=== PATIENT | male | born 1955 | race Caucasian/White ===

== ENCOUNTER 2020-04-19 22:05 | Inpatient (IN) ==
[2020-04-19] MEDS ORDERED: PROPOFOL IV EMULSION 10 MG/ML 100 ML VIAL IV ONE (22:08)
[2020-04-19] MEDS ORDERED: SODIUM CHLORIDE 0.9% 1000ML 1,000 ML IV SCH (22:15)
[2020-04-19] MEDS ORDERED: AMIODARONE 150MG / 100ML D5W IV ONE (22:18)
[2020-04-19] MEDS ORDERED: fentaNYL citrate 100 MCG/2 ML VIAL ONE (22:23)
[2020-04-19] MEDS ORDERED: NITROGLYCERIN/D5W 100MCG/ML 20ML SYR ONE (22:23)
[2020-04-19] MEDS ORDERED: NiCARDipine HCL INJ 2.5 MG/ML 10 ML AMP ONE (22:23)
[2020-04-19] MEDS ORDERED: HEPARIN (PORCINE) 1000 UNIT/ML 10 ML (CATH LAB USE ONLY) ONE (22:23)
[2020-04-19] MEDS ORDERED: MIDAZOLAM HCL 1 MG/ML 2ML VIAL ONE (22:23)
[2020-04-19] MEDS ORDERED: AMIODARONE 450 MG in D5W 250ML IN *POLYOLEFIN BAG* 241 ML IV ONE (22:24)
[2020-04-19] MEDS ORDERED: 0.2 MICRON FILTER SET 1 EA IV ONE (22:24)
[2020-04-19 22:35] LABS: Basophils # (auto) 0.03 K/uL (0-0.2); Basophils % (auto) 0.2 %; Eosinophils # (auto) 0.13 K/uL (0-0.5); Eosinophils % (auto) 0.9 %; Hematocrit (blood only) 44.9 % (42-52); Immature Granulocytes # (auto) 0.12 K/uL (0.00-0.02); Immature Granulocytes % (auto) 0.8 %; Lymphocytes # (auto) 3.89 K/uL (1.2-3.4); Lymphocytes % (auto) 27.5 %; Mean Corpuscular Hemoglobin 31.4 pg (25-34); Mean Corpuscular Hgb Conc 33.4 g/dL (32-36); Mean Corpuscular Volume 94.1 fL (80-100); Mean Platelet Volume 10.1 fL (7.4-10.4); Monocytes % (auto) 4.9 %; Neutrophils % (auto) 65.7 %; Platelet Count 277 K/uL (130-400); RDW Coefficient of Variation 13.7 % (11.5-14.5); RDW Standard Deviation 47.2 fL (36.4-46.3); Red Blood Count 4.77 M/uL (4.7-6.1); White Blood Count 14.17 K/uL (4.8-10.8)
[2020-04-19 22:44] LABS: INR 3.2 (0.9-1.1); Partial Thromboplastin Ratio 1.1; Partial Thromboplastin Time 29.8 Seconds (21.0-31.0); Prothrombin Time 31.8 Seconds (9.0-12.0)
--- NOTE | 2020-04-19 22:45 | Cardiology Consultation ---
Date of Consultation April 19, 2020 Assessment & Plan (1) Cardiac arrest: Patient here after witnessed cardiac arrest and initial rhythm reportedly showing VF requiring defibrillation. ECG remarkable for chronic left bundle branch block with lateral ST changes from baseline. Currently hemodynamically stable off pressors. Plan to proceed with diagnostic coronary angiography to evaluate for ischemic etiology of arrest. We will place cooling catheter to begin targeted temperature management. Further recommendations pending findings. History of Present Illness History of Present Illness Mr. Siu is a 65-year-old man with a history of chronic atrial fibrillation on anticoagulation with Coumadin, hypertension, dyslipidemia, moderate mitral regurgitation here after witnessed cardiac arrest. Patient is followed by [facility] cardiology, Dr. Acuna. Per family patient was in his usual state of health preceding loss of consciousness while at rest. Bystander CPR began immediately. Upon EMS arrival reportedly in VF and had 2 shocks before ROSC. Post ROSC EKG in route showed atrial fibrillation, old left bundle branch block with more pronounced/deep ST depressions in V5, V6. Intubated in the field. On arrival to ED patient hypertensive, moving limbs spontaneously but not responding to commands. Pupils reactive. Started on amiodarone. Allergies Allergy/AdvReac Type Severity Reaction Status Date / Time No Known Allergies Allergy Verified 04/19/20 22:14 Home Medications Home Medications Medication Instructions Recorded Confirmed Type digoxin [Digitek] 250 mcg PO DAILY 04/19/20 04/19/20 History fenofibrate nanocrystallized 145 mg PO DAILY 04/19/20 04/19/20 History losartan 50 mg PO DAILY 04/19/20 04/19/20 History metoprolol succinate 25 mg PO DAILY 04/19/20 04/19/20 History multivitamin 1 tab PO DAILY 04/19/20 04/19/20 History sildenafil (pulm.hypertension) 100 mg PO DAILY PRN 04/19/20 04/19/20 History [Revatio] warfarin 2.5 mg PO DAILY 04/19/20 04/19/20 History Patient History Social History Preferred Language: Greenlandic Feels Safe at Home: Yes Smoking Status: Unknown if ever smoked Review of Systems Review of Systems: Unobtainable due to endotracheal tube Physical Exam Constitutional: + thin Eyes: + anicteric sclerae and PERRL Respiratory: Clear anteriorly Cardiovascular: Rate/Rhythm: + irregularly irregular Vessels: radial pulses present Gastrointestinal (Abdomen): Inspection/Auscultation: abdomen not distended Skin: no rashes, warm and dry Psychiatric: Intubated, sedated PG Care Time/CCT Total # of Minutes Spent Total Time Spent with Patient: Total time spent is greater than 50% in coordination of care (as documented) at patient's floor/unit and/or counseling patient: Coding Level of Care Code 20570 Inpt Consult Level 5 Diagnoses Cardiac arrest I46.9
[2020-04-19 22:50] LABS: Albumin Level 3.5 gm/dl (3.4-5.0); BUN Creatinine Ratio 11.5 (10-20); Calcium 8.4 mg/dl (8.5-10.1); Creatinine Clr Calc Pharmacy 55.3 ml/min; Est GFR (African American) 44.2; Est GFR (Non-African American) 38.1; Magnesium 2.2 mg/dl (1.8-2.4); Potassium 3.9 mmol/L (3.5-5.1)
[2020-04-19 23:01] LABS: Albumin Globulin Ratio 1.1 (0.9-2); Bilirubin,Total 0.4 mg/dl (0.2-1); Creatine Kinase MB 2.4 ng/ml (0.5-3.6); Globulin 3.1 gm/dl (2.5-4.0); Thyroid Stimulating Hormone 6.8 uIu/ml (0.300-4.500); Total Protein 6.6 gm/dl (6.4-8.2); Troponin I 0.036 ng/ml (0-0.045)
[2020-04-19 23:14] LABS: T4 Free Thyroxine 1.02 ng/dl (0.8-1.6)
--- NOTE | 2020-04-19 23:23 | Emergency Department Note ---
Impression & Plan Cardiac arrest, Ventricular fibrillation, A-fib, Left bundle branch block ED Provider Note NAME: ANNETTE GRANDA AGE: 65 SEX: M ARRIVES VIA: Ambulance INFORMANT: Patient, ED PROVIDER(S): Manny Feng MD CHIEF COMPLAINT: Vfib arrest PLAN: Disposition: Admit MEDICAL DECISION MAKING: The patient is a 65-year-old gentleman with a past medical history of atrial fibrillation on Coumadin who presents emergency department after having a cardiac arrest at home with initial rhythm showing V. fib. Per EMS report on med command call, which I received, the patient was noted to be gagging by his and his son immediately began CPR. 911 was called and upon EMS arrival he was found to be in V. fib and received 2 shocks with subsequent ROSC. He was also loaded with 300 mg of Amiodarone. He did receive 2 doses of push dose epinephrine for post cardiac arrest hypotension with subsequent stabilization. He was intubated and there was no report of any purposeful movements. He did however exhibit some arm movements shortly prior to arrival and was given Ativan for sedation. On arrival the patient is intubated, his pupils are reactive. Ultimately we were able to review the patient's history in the [employer] system which does show a chronic left bundle branch block, which appears somewhat similar to the patient's post ROSC EKG. Given the patient did present with V. fib I did discuss the case with Dr. Fernandes, interventional cardiology prior to patient arrival and we agreed to proceed with heart alert activation. Code artic also activated given no purposeful movements. OGT was placed. CXR was performed and ETT and Gtube tube appear in good position per my review. Propofol gtt initiated for sedation and patient intermittently would move upper extremities. Amiodarone gtt ordered. INR 3.0. Dr. Fernandes reviewed plan for catheterization with son at bedside. Patient was taken emergently to the Production Manager. Labs with WBC 14. H/H and platelets within normal limits. Creatinine 1.8 without priors for comparison. LFTs elevated with AST and ALT 569 and 698, respectively. Troponin 0.036 initially. Case was discussed with Dr. Rivera, [facility] hospitalist, who will evaluate the patient for admission following Production [facility]. Triage Nursing notes reviewed and agree them. Additional history obtained from son and [facility] records. Prior medical records reviewed Vital Signs: reviewed and remarkable for no significant abnormalities Differential diagnosis: Cardiac ischemia, aortic dissection, pulmonary embolism, electrolyte abnormality, acidosis, tension pneumothorax, hypothermia, hypovolemia, intracranial event, cardiac tamponade, as well as other pathologies. ER treatment provided: See below. Diagnostics interpreted by me: ECG: Atrial Fibrillation, 100 bpm, LAD, LBBB, No Sgarbossa criteria. QTC 503, QRS 152. Cardiac Monitoring: An order for continuous cardiac monitoring was placed and demonstrated Atrial fibrillation, 100 bpm, no ectopy. Laboratory studies: See below Imaging studies: CXR: No focal infiltrates. Pulmonary vascular prominence. ETT in appropriate position, OGT below diaphragm. Consultation(s): Dr. Fernandes, Interventional cardiology. Dr. Rivera, [facility] hospitalist. HPI: The patient is a 65-year-old gentleman with a past medical history of atrial fibrillation on Coumadin who presents emergency department after having a cardiac arrest at home with initial rhythm showing V. fib. Per EMS report on med command call, which I received, the patient was noted to be gagging by his and his son immediately began CPR. 911 was called and upon EMS arrival he was found to be in V. fib and received 2 shocks with subsequent ROSC. He was also loaded with 300 mg of Amiodarone. He did receive 2 doses of push dose epinephrine for post cardiac arrest hypotension with subsequent stabilization. He was intubated and there was no report of any purposeful movements. He did however exhibit some arm movements shortly prior to arrival and was given Ativan for sedation. ROS: See above HPI for pertinent positives & negatives. A total of 10 systems reviewed and were otherwise negative. PAST MEDICAL HISTORY:See Below PAST SURGICAL HISTORY:See Below FAMILY HISTORY:See Below SOCIAL HISTORY:See Below HOME MEDICATIONS:See Below ALLERGIES:See Below VITALS:See Below PHYSICAL EXAMINATION: GENERAL: Unresponsive, intubated. HENT: Normocephalic, atraumatic. Oropharynx with dry mucous membranes and otherwise unremarkable. EYES: Pupils equal and reactive. NECK: Atraumatic. RESPIRATORY: Coarse breath sounds. Manual ventilation. CARDIAC: Regular rate. Irregular rhythm. Pulses equal. ABDOMEN: Nondistended. RECTAL: Deferred. LOWER EXTREMITIES: No edema. NEURO: GCS-3T, Pupils equal and reactive. SKIN: Warm, clammy. ED COURSE: Critical Care: I have personally spent greater than 65 minutes of critical care time in the direct management of this patient. This includes bedside care, interpretation of diagnostic studies, and testing, discussion with consultants, patient, and family members, and other required patient management activities. This 65 minutes is in excess of all separately billable procedures. 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 Beliefs That Will Affect Care: None Current Living Situation: Spouse Feels Safe at Home: Declines to Answer Smoking Status: Never smoker Hx Substance Use: No Allergies Allergies Allergy/AdvReac Type Severity Reaction Status Date / Time No Known Allergies Allergy Verified 04/19/20 22:14 Home Meds Home Medications Medication Instructions Recorded Confirmed digoxin [Digitek] 250 mcg PO DAILY 04/19/20 04/19/20 fenofibrate nanocrystallized 145 mg PO DAILY 04/19/20 04/19/20 losartan 50 mg PO DAILY 04/19/20 04/19/20 metoprolol succinate 25 mg PO DAILY 04/19/20 04/19/20 multivitamin 1 tab PO DAILY 04/19/20 04/19/20 sildenafil (pulm.hypertension) 100 mg PO DAILY PRN 04/19/20 04/19/20 [Revatio] warfarin 2.5 mg PO DAILY 04/19/20 04/19/20 Results & Data (ED) Vital Signs Vital Signs - 24 hr 04/19/20 22:09 04/19/20 22:10 04/19/20 22:11 Temperature 36.8 C Temperature Source Rectal Pulse Rate 108 H 88 99 H Pulse Rate from SpO2 Sensor 82 Respiratory Rate 28 H 32 H Blood Pressure 138/80 138/80 Blood Pressure Mean 99 82 Pulse Oximetry 100 99 99 Oxygen Delivery Method Mechanical Vent Fraction of Inspired Oxygen 50 Sepsis Recent Fever Within 48 Hours No Sepsis New/Unexplained Change in Mental Status Yes Sepsis Action Taken by Nursing No Action Required End-Tidal CO2 32 26 04/19/20 22:18 04/19/20 22:22 04/19/20 22:25 Temperature Temperature Source Pulse Rate 106 H 105 H 107 H Pulse Rate from SpO2 Sensor 78 102 H 104 H Respiratory Rate Blood Pressure 164/58 H 144/102 H 140/103 H Blood Pressure Mean 116 117 119 Pulse Oximetry 97 99 98 Oxygen Delivery Method Fraction of Inspired Oxygen Sepsis Recent Fever Within 48 Hours Sepsis New/Unexplained Change in Mental Status Sepsis Action Taken by Nursing End-Tidal CO2 33 34 34 04/19/20 22:31 04/19/20 22:35 04/19/20 22:36 Temperature Temperature Source Pulse Rate 91 H Pulse Rate from SpO2 Sensor 104 H 108 H Respiratory Rate 29 H Blood Pressure 115/98 113/76 Blood Pressure Mean 107 87 Pulse Oximetry 100 99 97 Oxygen Delivery Method Mechanical Vent Fraction of Inspired Oxygen 50 Sepsis Recent Fever Within 48 Hours Sepsis New/Unexplained Change in Mental Status Sepsis Action Taken by Nursing End-Tidal CO2 33 34 32 Laboratory Data Attestation: I reviewed the patient's lab results. Result diagrams: 04/19/20 22:22 04/19/20 22:22 Lab Results 04/19/20 04/19/20 04/19/20 Range/Units 22:22 22:22 22:22 WBC 14.17 H (4.8-10.8) K/uL RBC 4.77 (4.7-6.1) M/uL Hgb 15.0 (14.0-18.0) g/dL Hct 44.9 (42-52) % MCV 94.1 (80-100) fL MCH 31.4 (25-34) pg MCHC 33.4 (32-36) g/dL RDW Std Deviation 47.2 H (36.4-46.3) fL RDW Coeff of Charles 13.7 (11.5-14.5) % Plt Count 277 (130-400) K/uL MPV 10.1 (7.4-10.4) fL Immature Gran % (Auto) 0.8 % Neut % (Auto) 65.7 % Lymph % (Auto) 27.5 % Jack % (Auto) 4.9 % Eos % (Auto) 0.9 % Baso % (Auto) 0.2 % Immature Gran # (Auto) 0.12 H (0.00-0.02) K/uL Neut # (Auto) 9.30 H (1.4-6.5) K/uL Lymph # (Auto) 3.89 H (1.2-3.4) K/uL Jack # (Auto) 0.70 H (0.11-0.59) K/uL Eos # (Auto) 0.13 (0-0.5) K/uL Baso # (Auto) 0.03 (0-0.2) K/uL PT 31.8 H (9.0-12.0) Seconds INR 3.2 H (0.9-1.1) APTT 29.8 (21.0-31.0) Seconds PTT Ratio 1.1 Sodium 143 (136-145) mmol/L Potassium 3.9 (3.5-5.1) mmol/L Chloride 111 H (98-107) mmol/L Carbon Dioxide 18 L (21-32) mmol/L Anion Gap 13.0 H (3-11) BUN 21 H (7-18) mg/dl Creatinine 1.82 H (0.6-1.4) mg/dl Est Cr Clr Drug Dosing 55.3 ml/min Est GFR ( Amer) 44.2 Est GFR (Non-Af Amer) 38.1 BUN/Creatinine Ratio 11.5 (10-20) Glucose 190 H (70-99) mg/dl Lactate (0.4-2.0) mmol/L Calcium 8.4 L (8.5-10.1) mg/dl Magnesium 2.2 (1.8-2.4) mg/dl Total Bilirubin 0.4 (0.2-1) mg/dl AST 569 H (15-37) U/L ALT 698 H (12-78) U/L Alkaline Phosphatase 43 L (45-117) U/L Total Creatine Kinase 343 H (39-308) U/L CK-MB (CK-2) 2.4 (0.5-3.6) ng/ml CK/CKMB % Calc 0.7 (0-3.0) Troponin I 0.036 (0-0.045) ng/ml Total Protein 6.6 (6.4-8.2) gm/dl Albumin 3.5 (3.4-5.0) gm/dl Globulin 3.1 (2.5-4.0) gm/dl Albumin/Globulin Ratio 1.1 (0.9-2) Lipase 267 (73-393) U/L Procalcitonin (0-0.5) ng/ml TSH 6.800 H (0.300-4.500) uIu/ml Free T4 1.02 (0.8-1.6) ng/dl 04/19/20 04/19/20 Range/Units 22:22 22:22 WBC (4.8-10.8) K/uL RBC (4.7-6.1) M/uL Hgb (14.0-18.0) g/dL Hct (42-52) % MCV (80-100) fL MCH (25-34) pg MCHC (32-36) g/dL RDW Std Deviation (36.4-46.3) fL RDW Coeff of Charles (11.5-14.5) % Plt Count (130-400) K/uL MPV (7.4-10.4) fL Immature Gran % (Auto) % Neut % (Auto) % Lymph % (Auto) % Jack % (Auto) % Eos % (Auto) % Baso % (Auto) % Immature Gran # (Auto) (0.00-0.02) K/uL Neut # (Auto) (1.4-6.5) K/uL Lymph # (Auto) (1.2-3.4) K/uL Jack # (Auto) (0.11-0.59) K/uL Eos # (Auto) (0-0.5) K/uL Baso # (Auto) (0-0.2) K/uL PT (9.0-12.0) Seconds INR (0.9-1.1) APTT (21.0-31.0) Seconds PTT Ratio Sodium (136-145) mmol/L Potassium (3.5-5.1) mmol/L Chloride (98-107) mmol/L Carbon Dioxide (21-32) mmol/L Anion Gap (3-11) BUN (7-18) mg/dl Creatinine (0.6-1.4) mg/dl Est Cr Clr Drug Dosing ml/min Est GFR ( Amer) Est GFR (Non-Af Amer) BUN/Creatinine Ratio (10-20) Glucose (70-99) mg/dl Lactate 5.2 H* (0.4-2.0) mmol/L Calcium (8.5-10.1) mg/dl Magnesium (1.8-2.4) mg/dl Total Bilirubin (0.2-1) mg/dl AST (15-37) U/L ALT (12-78) U/L Alkaline Phosphatase (45-117) U/L Total Creatine Kinase (39-308) U/L CK-MB (CK-2) (0.5-3.6) ng/ml CK/CKMB % Calc (0-3.0) Troponin I (0-0.045) ng/ml Total Protein (6.4-8.2) gm/dl Albumin (3.4-5.0) gm/dl Globulin (2.5-4.0) gm/dl Albumin/Globulin Ratio (0.9-2) Lipase (73-393) U/L Procalcitonin < 0.05 (0-0.5) ng/ml TSH (0.300-4.500) uIu/ml Free T4 (0.8-1.6) ng/dl Administered Medications Acetaminophen (Tylenol) 650 mg AR ONE PRN PRN Reason: Rebound Hyperthermia x 1 dose Stop: 05/20/20 00:50 Last Admin: 04/20/20 03:55 Dose: 650 mg Documented by: [id number] Amiodarone HCl 450 mg/ (Dextrose) 250 mls @ 33.333 mls/hr IV ONE ONE; Protocol Stop: 04/20/20 05:53 Last Admin: 04/20/20 00:14 Dose: 1 mg/min, 33.3 mls/hr Documented by: [id number] Cosigned by: [id number] Sodium Chloride (Nss 1000ml) 750 mls @ 100 mls/hr IV .Q7H30M [facility] Stop: 04/20/20 07:59 Last Admin: 04/20/20 01:27 Dose: 100 mls/hr Documented by: [id number] Amiodarone HCl 450 mg/ (Dextrose) 250 mls @ 16.667 mls/hr IV .Q15H [facility] Stop: 05/20/20 06:14 Last Admin: 04/20/20 04:53 Dose: 0.5 mg/min, 16.7 mls/hr Documented by: [id number] Cosigned by: [id number] Propofol (Diprivan) 1,000 mg in 100 mls @ 12.948 mls/hr IV .Q7H44M [facility]; Protocol Stop: 04/23/20 00:59 Last Admin: 04/20/20 04:54 Dose: 50 mcg/kg/min, 32.4 mls/hr Documented by: [id number] Cosigned by: [id number] Titration: 04/20/20 04:34 Dose: 50 mcg/kg/min, 32.4 mls/hr Documented by: [id number] Cosigned by: [id number] Admin: 04/20/20 01:28 Dose: 50 mcg/kg/min, 32.4 mls/hr Documented by: [id number] Cosigned by: [id number] Fentanyl Citrate (Fentanyl Drip) 1,250 mcg in 250 mls @ 15 mls/hr IV .[id number] [facility]; Protocol Stop: 05/04/20 01:14 Last Titration: 04/20/20 03:45 Dose: 75 mcg/hr, 15 mls/hr Documented by: [id number] Titration: 04/20/20 02:06 Dose: 50 mcg/hr, 10 mls/hr Documented by: [id number] Admin: 04/20/20 01:29 Dose: 25 mcg/hr, 5 mls/hr Documented by: [id number] Cosigned by: [id number] Cisatracurium Besylate 40 mg/ (Sodium Chloride) 100 mls @ 13.365 mls/hr IV .Q7H29M [facility]; Protocol Stop: 05/20/20 04:29 Last Admin: 04/20/20 04:52 Dose: 1 mcg/kg/min, 13.4 mls/hr Documented by: [id number] Cosigned by: [id number] Meperidine HCl (Demerol) 25 mg IV Q2H PRN PRN Reason: Shivering Stop: 05/04/20 00:50 Last Admin: 04/20/20 03:45 Dose: 25 mg Documented by: [id number] Admin: 04/20/20 02:06 Dose: 25 mg Documented by: [id number] Discontinued Medications Amiodarone HCl/Dextrose (Nexterone / D5w) Confirm Administered Dose 150 mg IV .STK-MED ONE Stop: 04/19/20 22:19 Last Admin: 04/20/20 00:24 Dose: Not Given Documented by: [id number] Fentanyl Citrate (Fentanyl Citrate) Confirm Administered Dose 100 mcg .ROUTE .STK-MED ONE Stop: 04/19/20 22:24 Last Admin: 04/20/20 00:24 Dose: Not Given Documented by: [id number] Heparin Sodium (Porcine) (Heparin Iv Bolus (Production Manager Use Only)) Confirm Administered Dose 10,000 units .ROUTE .[facility] ONE Stop: 04/19/20 22:24 Last Admin: 04/20/20 00:25 Dose: Not Given Documented by: [id number] Heparin Sodium/Sodium Chloride (Heparin/Nss 1000 Unit/500ml Flush Bag) Confirm Administered Dose 3,000 units IV .[facility] ONE Stop: 04/19/20 22:24 Last Admin: 04/20/20 00:25 Dose: Not Given Documented by: [id number] Sodium Chloride (Nss 1000ml) 1,000 mls @ 80 mls/hr IV .[id number] [facility] Stop: 05/19/20 22:14 Last Admin: 04/20/20 00:27 Dose: Not Given Documented by: [id number] Levetiracetam 2,000 mg/ Sodium (Chloride) 270 mls @ 999 mls/hr IV NOW STA Stop: 04/20/20 01:32 Last Infusion: 04/20/20 02:06 Dose: 0 mls/hr Documented by: [id number] Admin: 04/20/20 01:29 Dose: 999 mls/hr Documented by: [id number] Sodium Chloride (Nss 1000ml) 1,000 mls @ 999 mls/hr IV .Q1H1M [facility] Stop: 04/20/20 05:00 Last Admin: 04/20/20 04:18 Dose: 999 mls/hr Documented by: [id number] Ipratropium [place] (Atrovent Hfa) 4 puffs INH Q6R [facility] Stop: 05/20/20 00:59 Last Admin: 04/20/20 01:31 Dose: 4 puffs Documented by: [id number] Levalbuterol HCl (Xopenex Hfa) 4 puffs INH Q6R [facility] Stop: 05/20/20 00:59 Last Admin: 04/20/20 02:13 Dose: Not Given Documented by: [id number] Midazolam HCl (Versed) Confirm Administered Dose 2 mg .ROUTE .[facility] ONE Stop: 04/19/20 22:24 Last Admin: 04/20/20 00:25 Dose: Not Given Documented by: [id number] Midazolam HCl (Versed) Confirm Administered Dose 2 mg .ROUTE .STK-MED ONE Stop: 04/20/20 00:34 Last Admin: 04/20/20 01:28 Dose: 2 mg Documented by: [id number] Midazolam HCl (Versed) 2 mg IV NOW STA Stop: 04/20/20 01:02 Last Admin: 04/20/20 01:28 Dose: Not Given Documented by: [id number] Nicardipine HCl (Cardene) Confirm Administered Dose 25 mg .ROUTE .STK-MED ONE Stop: 04/19/20 22:24 Last Admin: 04/20/20 00:24 Dose: Not Given Documented by: [id number] Nitroglycerin/Dextrose (Nitroglycerin/D5w 100 Mcg/Ml 20ml Syringe) Confirm Administered Dose 2,000 mcg .ROUTE .STK-MED ONE Stop: 04/19/20 22:24 Last Admin: 04/20/20 00:25 Dose: Not Given Documented by: [id number] Propofol (Diprivan) Confirm Administered Dose 1,000 mg IV .STK-MED ONE Stop: 04/19/20 22:09 Last Admin: 04/20/20 00:24 Dose: Not Given Documented by: [id number] Rocuronium [place] (Zemuron) Confirm Administered Dose 10 mg .ROUTE .STK-MED ONE Stop: 04/20/20 00:42 Last Admin: 04/20/20 01:28 Dose: 50 mg Documented by: [id number] Cosigned by: [id number] Rocuronium [place] (Zemuron) 50 mg IV ONCE STA Stop: 04/20/20 01:02 Last Admin: 04/20/20 01:29 Dose: Not Given Documented by: [id number] Rocuronium [place] (Zemuron) Confirm Administered Dose 10 mg .ROUTE .STK-MED ONE Stop: 04/20/20 04:15 Last Admin: 04/20/20 04:16 Dose: 50 mg Documented by: [id number] Cosigned by: [id number] Rocuronium [place] (Zemuron) 50 mg IV NOW STA Stop: 04/20/20 04:16 Last Admin: 04/20/20 04:53 Dose: Not Given Documented by: [id number] Blood Pressure Blood Pressure Findings: Normal blood pressure Discharge Plan Visit Data *Final* Discharge Date/Time: 04/19/20 22:45 Stated Complaint: POST CARDIAC ARREST ED Provider: Manny Feng Discharge Problem: Cardiac arrest, Ventricular fibrillation, A-fib, Left bundle branch block Patient Disposition: Still a Patient Discharge Instructions Interventions: ED Discharge Assessment Last Done: 04/19/20 22:45
[2020-04-19] MEDS ORDERED: ICU PROTOCOL FOR HYPERGLYCEMIA PRN (23:35)
--- NOTE | 2020-04-19 23:35 | Cardiac Catheterization ---
[facility] Data: Package Drier Cardiac Status Clinical evaluation leading to the procedure CAD Presenation: Sx unlikely to be ischemic Anginal Classification: No Symptoms Heart Failure: No Cardiogenic Shock within 24 Hours: No Cardiac Arrest within 24 Hours: Yes Imaging Studies Past 6 Months: No Stress Studies Past 6 Months: No Diagnostic Physicians Name: Noel Fernandes MD Status: Urgent Closure Device Percutaneous Entry Location: Radial Closure Device: Radial Band Recommendations: Medical Therapy and/or Counseling Intraprocedure Events Significant Disection: No Perforation: No Cardiac Cath Procedure Full Procedure Date April 19, 2020 Pre-Procedure Diagnosis Pre-Procedure Diagnosis: Cardiothoracic Symptom (cardiac arrest) AUC Score AUC Score: 8 Post-Procedure Diagnosis Post-Procedure Diagnosis: Normal Coronary Arteries, Decreased LV Systolic Function and Normal Intracardiac Pressures Procedure(s) Performed Procedure(s) Performed: Coronary Angiography, Left Heart Cath, LV Angiography and Procedure (central venous cooling catheter placement) Lip And Gate Builder Noel Fernadnes MD Personal Injury Specialist(s) Danyelle Estimated Blood Loss Estimated Blood Loss: 10 Medication(s) Medication(s): Lidocaine 1% Summary of Findings Indication: Cardiac arrest Access: 6 Fr slender right radial artery Catheters: [place], pigtail Findings: LM -large caliber, angiographically normal LAD -mild proximal luminal irregularities, wraps around apex. Diagonals without significant disease Circumflex -dominant, large caliber vessel, minimal ostial disease otherwise angiographically normal RCA -small, nondominant without significant disease LVEDP -15 LVEF 35 to 40%, mild to moderate global LV dysfunction Successful placement of cooling catheter via right common femoral vein Arterial Closure: TR band Summary: 1. Essentially normal coronary arteries 2. Normal LV filling pressure 3. Mild to moderate global LV dysfunction, EF 35 to 40% Recommendations: To ICU for post cardiac arrest care including targeted temperature management Hemodynamics Rest Ao:: 104/67/83 Final Ao: 132/76/94 LV: 104/15 Recommendations Recommendations: Medical Therapy and/or Counseling Specimens Specimens: None Radiation Exposure (mGy) 887 Contrast (mls) 50 Fluids (cc crystalloids) Fluids (cc crystalloids): 50 Drains Drains: none Anesthesia propofol Procedural Complication(s) None Disposition ICU I attest to the content of the Intraoperative Record and any orders documented therein. Any exceptions are noted below. [facility] Card Cath Procedure Codes Cardiac Catheterization Procedure 1: Cardiovascular Cath Procedures: 02987 Coronaries and LHC (+/-LV) Therapeutic Services & Ancillary Proc Procedure 1: Cardiovascular Tx and Anc Procedures: 69606 Insertion Central Venous Catheter PG Care Time/CCT Total # of Minutes Spent Total Time Spent with Patient: Total time spent is greater than 50% in coordination of care (as documented) at patient's floor/unit and/or counseling patient:
--- NOTE | 2020-04-19 23:37 | History & Physical Report ---
Date of Service April 19, 2020 Assessment & Plan (1) Cardiac arrest: Out of hospital event Initial V. fib rhythm as per report Return of spontaneous circulation post defibrillation. Christina. ana on Coumadin, slight elevated INR supratherapeutic chronic LBBB Hypertension, currently stable ARF Abnormal LFTs possibly from shock liver, probable hypotension during cardiac arrest Hyperglycemia rule out DM ICU Management of cardiac issues as per Cardiology. Truss Puller Helper consult for vent management and post arrest therapeutic hypothermia. Baseline UA, monitor creatinine response to IVF, appropriate to hold losartan for now given kidney dysfunction Follow LFTs; liver ultrasound if with worsening Check hemoglobin A1c DVT prophylaxis. IV heparin if INR less than 2 while Coumadin on hold due to n.p.o. status Full code Text document was generated using [employer] voice recognition software. It may contain grammatical or spelling errors. Kindly contact undersigned for clarification of any documentation item in question. History of Present Illness Chief Complaint: Cardiac arrest as per records Primary Care Provider: Patricia Ragsdale MD History obtained from ER provider and records. Unable to obtain history from patient secondary to sedated/intubated state. Medical history significant for Christina. ana on Coumadin, chronic LBBB, valvular heart disease (moderate MR/TR on TTE 2017) hypertension, history of melanoma as per records. As per records, patient noted to be gagging by a few hours ago. Patient subsequently passed out. CPR initiated by son. Upon EMS arrival, V. fib noted on the monitor necessitating shock delivery. Epinephrine, IV amiodarone administered on the field. ROSC after defibrillation. Some limb movement without appreciated as per records. Patient intubated at the field. Therapeutic hypothermia protocol initiated en route to ER. Heart alert called upon arrival at the ER after discussion with senior web applications developer. Clean coronaries on diagnostic cardiac catheterization as per senior web applications developer. Medical History as above Surgical History : Dental surgery, tonsillectomy Family History : Diabetes, Parkinson's disease Personal/Social history : Non-smoker, daily alcohol intake as per records, lives with Allergies Allergy/AdvReac Type Severity Reaction Status Date / Time No Known Allergies Allergy Verified 04/19/20 22:14 Home Medications Home Medications Medication Instructions Recorded Confirmed Type digoxin [Digitek] 250 mcg PO DAILY 04/19/20 04/19/20 History fenofibrate nanocrystallized 145 mg PO DAILY 04/19/20 04/19/20 History losartan 50 mg PO DAILY 04/19/20 04/19/20 History metoprolol succinate 25 mg PO DAILY 04/19/20 04/19/20 History multivitamin 1 tab PO DAILY 04/19/20 04/19/20 History sildenafil (pulm.hypertension) 100 mg PO DAILY PRN 04/19/20 04/19/20 History [Revatio] warfarin 2.5 mg PO DAILY 04/19/20 04/19/20 History Past Med/Surg History Medical History A-fib (Acute) Left bundle branch block (Acute) On warfarin therapy Social History Preferred Language: Romansh Communication Ability: Unable Seam Closer Required: No Beliefs That Will Affect Care: None Current Living Situation: Spouse Feels Safe at Home: Declines to Answer Smoking Status: Never smoker Hx Substance Use: No Review of Systems Review of Systems: Could not be reliably obtained Physical Exam Physical Exam: GENERAL: Sedated, intubated SKIN: Normal color, warm HEENT: Vandiver palpebral conjunctivae, no ptosis, dry buccal mucosa, ET in place NECK : Supple, no tenderness CHEST : Decreased breath sounds, no tenderness HEART : irregular, no obvious murmurs ABDOMEN: Some distention, nontender EXTREMITIES : Minimal LE swelling, no LE tenderness, no other conspicuous deformities noted NEUROLOGIC : Sedated, no facial asymmetry, gait and stance not assessed Results & Data Results & Data ([facility]) Vital Signs (Past 12 Hours) Vital Signs Temp Pulse Resp BP Pulse Ox 04/19/20 22:36 113/76 97 04/19/20 22:31 115/98 100 04/19/20 22:25 107 H 140/103 H 98 04/19/20 22:22 105 H 144/102 H 99 04/19/20 22:18 106 H 164/58 H 97 04/19/20 22:11 99 H 138/80 99 04/19/20 22:10 88 32 H 99 04/19/20 22:09 36.8 C 108 H 28 H 138/80 100 Laboratory Results Laboratory Results WBC 14.17 K/uL (4.8-10.8) H 04/19/20 22:22 RBC 4.77 M/uL (4.7-6.1) 04/19/20 22:22 Hgb 15.0 g/dL (14.0-18.0) 04/19/20 22:22 Hct 44.9 % (42-52) 04/19/20 22:22 MCV 94.1 fL (80-100) 04/19/20 22:22 MCH 31.4 pg (25-34) 04/19/20 22: MCHC 33.4 g/dL (32-36) 04/19/20 22:22 RDW Std Deviation 47.2 fL (36.4-46.3) H 04/19/20:22 RDW Coeff of Charles 13.7 % (11.5-14.5) 04/19/20: Plt Count 277 K/uL (130-400) 04/19/20 22: MPV 10.1 fL (7.4-10.4) 04/19/20 22:22 Immature Gran % (Auto) 0.8 % 04/19/20 22:22 Neut % (Auto) 65.7 % 04/19/20 22:22 Lymph % (Auto) 27.5 % 04/19/20 22:22 [place] % (Auto) 4.9 % 04/19/20 22:22 Eos % (Auto) 0.9 % 04/19/20 22:22 Baso % (Auto) 0.2 % 04/19/20 22:22 Immature Gran # (Auto) 0.12 K/uL (0.00-0.02) H 04/19/20 22:22 Neut # (Auto) 9.30 K/uL (1.4-6.5) H 04/19/20 22:22 Lymph # (Auto) 3.89 K/uL (1.2-3.4) H 04/19/20 22:22 [place] # (Auto) 0.70 K/uL (0.11-0.59) H 04/19/20 22:22 Eos # (Auto) 0.13 K/uL (0-0.5) 04/19/20 22:22 Baso # (Auto) 0.03 K/uL (0-0.2) 04/19/20 22:22 PT 31.8 Seconds (9.0-12.0) H 04/19/20 22:22 INR 3.2 (0.9-1.1) H 04/19/20 22:22 APTT 29.8 Seconds (21.0-31.0) 04/19/20 22:22 PTT Ratio 1.1 04/19/20 22:22 Sodium 143 mmol/L (136-145) 04/19/20 22:22 Potassium 3.9 mmol/L (3.5-5.1) 04/19/20 22:22 Chloride 111 mmol/L (98-107) H 04/19/20 22:22 Carbon Dioxide 18 mmol/L (21-32) L 04/19/20 22:22 Anion Gap 13.0 (3-11) H 04/19/20 22:22 BUN 21 mg/dl (7-18) H 04/19/20 22:22 Creatinine 1.82 mg/dl (0.6-1.4) H 04/19/20 22:22 Est Cr Clr Drug Dosing 55.3 ml/min 04/19/20 22:22 Est GFR ( Amer) 44.2 04/19/20 22:22 Est GFR (Non-Af Amer) 38.1 04/19/20 22:22 BUN/Creatinine Ratio 11.5 (10-20) 04/19/20 22:22 Glucose 190 mg/dl (70-99) H 04/19/20 22:22 Calcium 8.4 mg/dl (8.5-10.1) L 04/19/20 22:22 Magnesium 2.2 mg/dl (1.8-2.4) 04/19/20 22:22 Total Bilirubin 0.4 mg/dl (0.2-1) 04/19/20 22:22 AST 569 U/L (15-37) H 04/19/20 22:22 ALT 698 U/L (12-78) H 04/19/20 22:22 Alkaline Phosphatase 43 U/L (45-117) L 04/19/20 22:22 Total Creatine Kinase 343 U/L (39-308) H 04/19/20 22:22 CK-MB (CK-2) 2.4 ng/ml (0.5-3.6) 04/19/20 22:22 CK/CKMB % Calc 0.7 (0-3.0) 04/19/20 22:22 Troponin I 0.036 ng/ml (0-0.045) 04/19/20 22:22 Total Protein 6.6 gm/dl (6.4-8.2) 04/19/20 22:22 Albumin 3.5 gm/dl (3.4-5.0) 04/19/20 22:22 Globulin 3.1 gm/dl (2.5-4.0) 04/19/20 22:22 Albumin/Globulin Ratio 1.1 (0.9-2) 04/19/20 22:22 Lipase 267 U/L (73-393) 04/19/20 22:22 TSH 6.800 uIu/ml (0.300-4.500) H 04/19/20 22:22 Free T4 1.02 ng/dl (0.8-1.6) 04/19/20 22:22 Diagnostic Findings Chest x-ray as per my interpretation cardiomegaly, minimal congestion CT head initial read : no acute intracranial findings EKG as per my interpretation : Rate 85, A. fib, LAD, LAFB, LBBB
--- NOTE | 2020-04-19 23:44 | Critical Care Consultation ---
Date of Consultation April 19, 2020 Assessment & Plan (1) Cardiac arrest: Reason Critically Ill: 65-year-old male with history of A. fib, presents to the ICU following witnessed V. fib cardiac arrest with ROSC achieved approximately 20 minutes. Patient unresponsive and presumed anoxic injury now undergoing therapeutic hypothermia. Neuro - Anoxic injurysee neurological exam -CT head Noncon pending, will undergo 24-hour therapeutic hypothermia per protocol Cardiac - V. fib cardiac arrestunsure of etiology at this time as patient's cardiac cath was unremarkable with normal coronary arteries, electrolytes unremarkable -Patient did have reduced LV function, will follow up echo in a.m. -Patient undergo therapeutic hypothermia protocol -Currently hemodynamically stable without need for vasopressors at this time -Continuous monitor on telemetry, will insert arterial line for continuous hemodynamic monitoring and frequent lab draws -We will follow-up cardiology recommendations A. fib/chronic LBBBon Coumadin and INR therapeutic, will likely need conversion to heparin as he is currently mechanically ventilated -Currently rate controlled, continue to monitor on telemetry Respiratory - Mechanically ventilatedETT placed via EMS, placement confirmed with CXR -14/500/5/50 percent, will adjust off ABGs -CXR appears unremarkable, will follow up read -Continuous monitoring on pulse ox, continuous ET CO2 -Will remain intubated during therapeutic hypothermia GI - Elevated LFTsno history of liver disease, likely shock liver following cardiac arrest -We will continue to trend for now RENAL/LYTES - AKIcreatinine 1.8, no baseline to compare -Expect this is ATN following cardiac arrest, will monitor closely for development of acute renal failure - Foleystrict I's and O's ENDO - No history diabetes or thyroid disease, TSH elevated but T4 within normal limits ICU hyperglycemic protocol HEME - H&H within normal limits, monitor ID - No indication for infectious process at this time LINES/IV ACCESS - Central venous cooling catheter DVT PROPHYLAXIS - SCDs I have personally spent 55 minutes of critical care time in the direct management of this patient. This is a life/limb threatening event. This includes time spent evaluating patient, direct bedside care, chart review, placing orders, interpretation of diagnostic studies, discussion with consultants, patient, and family members, as well as other required patient management activities. This time is exclusive of all separately billable procedures, and teaching time and separate from and in addition to any other critical care service time. Thank you for allowing us to participate in the care of this patient. Please refer to my attending physician's documentation for any further recommendations. (2) Ventricular fibrillation: (3) A-fib: (4) Left bundle branch block: (5) Anoxic brain damage: History of Present Illness Attending Physician: Noel Fernandes MD History of Present Illness Mr. Tovar is a 65-year-old male with PMH of A. fib (on Coumadin), LBBB who presented to the emergency department after cardiac arrest at home which showed V. fib. Patient's noticed that he was gasping while asleep in bed and she called out to the son who responded immediately. He did not feel a pulse and called 911 and started CPR. Paramedics arrived approximately 7 minutes later and so the patient was in V. fib arrest. Patient received shock x2 and CPR until ROSC was achieved approximately 20 minutes from initial 911 call. In route EKG was questionable for STEMI but paramedics were unable to confirm due to LBBB, heart alert was initiated. There was also questionable seizure activity and what sounds like decorticate posturing and improved, and patient was given 1 mg Ativan and symptoms subsided. He arrived to the ED intubated but was not following commands and was nonlocalizing with noxious stimuli. He also appeared to have doll's eyes but was PERRLA and cough gag corneal reflexes were intact. Patient then went to Health Promotion Educator but was found to have normal coronary arteries and normal intracardiac pressures but decreased LV systolic function. A central venous cooling catheter was placed in the [facility] Promotion Educator in anticipation for hypothermic therapy. Patient is currently in CT for CT head Noncon. If negative, will undergo 24 hours of hypothermic therapy following cardiac arrest per protocol. Patient to remain in ICU for further management at this time. Allergies Allergy/AdvReac Type Severity Reaction Status Date / Time No Known Allergies Allergy Verified 04/19/20 22:14 Home Medications Home Medications Medication Instructions Recorded Confirmed Type digoxin [Digitek] 250 mcg PO DAILY 04/19/20 04/19/20 History fenofibrate nanocrystallized 145 mg PO DAILY 04/19/20 04/19/20 History losartan 50 mg PO DAILY 04/19/20 04/19/20 History metoprolol succinate 25 mg PO DAILY 04/19/20 04/19/20 History multivitamin 1 tab PO DAILY 04/19/20 04/19/20 History sildenafil (pulm.hypertension) 100 mg PO DAILY PRN 04/19/20 04/19/20 History [Revatio] warfarin 2.5 mg PO DAILY 04/19/20 04/19/20 History Patient History Social History Preferred Language: Greenlandic Feels Safe at Home: Yes Smoking Status: Unknown if ever smoked Review of Systems Review of Systems: All systems reviewed & are unremarkable except as noted in HPI & below Physical Exam Eyes: PERRL, conjunctivae normal, anicteric sclerae Positive doll's eyes ENMT: external ear and nose normal, oropharynx normal Neck: trachea midline, no thyromegaly Respiratory: normal respiratory effort, lungs clear to auscultation symmetric chest movement Cardiovascular: RRR, no murmur, no edema Heart Sounds: normal S1 and normal S2 Vessels: no JVD Extremities: normal capillary refill; no edema Gastrointestinal (Abdomen): normal bowel sounds, soft, nontender, no hepatosplenomegaly Skin: no rashes, warm and dry Neurologic: PERRLA, cough gag corneals intact, nonlocalizing to pain, positive doll's eyes Psychiatric: MODESTA Results & Data Results & Data ([facility]) Vital Signs (Past 12 Hours) Vital Signs Temp Pulse Resp BP Pulse Ox 04/19/20 22:36 113/76 97 04/19/20 22:31 115/98 100 04/19/20 22:25 107 H 140/103 H 98 04/19/20 22:22 105 H 144/102 H 99 04/19/20 22:18 106 H 164/58 H 97 04/19/20 22:11 99 H 138/80 99 04/19/20 22:10 88 32 H 99 04/19/20 22:09 36.8 C 108 H 28 H 138/80 100 Coding Level of Care Code Critical Care 1st 30-74 mins Diagnoses Cardiac arrest I46.9 Ventricular fibrillation I49.01 A-fib I48.91 Left bundle branch block I44.7 Anoxic brain damage G93.1
[2020-04-20] MEDS ORDERED: ICU PROTOCOL FOR HYPERGLYCEMIA PRN (00:23)
[2020-04-20] MEDS ORDERED: fentaNYL citrate 100 MCG/2 ML VIAL IV PRN (00:23)
[2020-04-20] MEDS ORDERED: PROMETHAZINE HCL 12.5 MG in SODIUM CHLORIDE 0.9% 50 ML IV PRN (00:23)
[2020-04-20] MEDS ORDERED: SODIUM CHLORIDE 0.9% 1000ML 750 ML IV SCH (00:30)
[2020-04-20] MEDS ORDERED: MIDAZOLAM HCL 1 MG/ML 2ML VIAL ONE (00:33)
[2020-04-20] MEDS ORDERED: ROCURONIUM BROMIDE 10 MG/ML 5 ML VIAL ONE ×2 (00:41→04:14)
[2020-04-20] MEDS ORDERED: ACETAMINOPHEN 650 MG SUPP PR PRN (00:51)
[2020-04-20] MEDS ORDERED: ARTIFICIAL TEARS OP OINT 3.5 GM TUBE OP PRN (00:51)
[2020-04-20] MEDS ORDERED: BusPIRone 15 MG TAB NG PRN (00:51)
[2020-04-20] MEDS ORDERED: TRAMADOL HCL 50 MG TABLET NG PRN (00:51)
[2020-04-20] MEDS ORDERED: PROPOFOL BOLUS FROM BAG IV PRN (00:56)
[2020-04-20] MEDS ORDERED: STAT IV Infusion **Titration per Protocol STA ×4 (00:56→17:17)
[2020-04-20] MEDS ORDERED: LEVALBUTEROL TARTRATE 15 GM HFA.AER.AD INH SCH (01:00)
[2020-04-20] MEDS ORDERED: IPRATROPIUM BROMIDE HFA INHALER INH SCH (01:00)
[2020-04-20] MEDS ORDERED: ROCURONIUM BROMIDE 10 MG/ML 5 ML VIAL IV STA ×2 (01:01→04:15)
[2020-04-20] MEDS ORDERED: MIDAZOLAM HCL 1 MG/ML 2ML VIAL IV STA (01:01)
--- NOTE | 2020-04-20 01:05 | Procedure Note ---
Procedure Note Date of Service April 20, 2020 Note ARTERIAL LINE PROCEDURE NOTE: Procedure: Arterial Line Placement Attending: Dr. Francisco Desir Provider: LUI Cook Indication: Continuous hemodynamic monitoring, frequent lab draws Anesthesia: None Line placed emergently following cardiac arrest, and initiation of therapeutic hypothermia A time-out was completed verifying correct patient, procedure, site, positioning, and implant(s) or special equipment if applicable. Allens test was performed to ensure adequate perfusion. Patients left wrist was prepped and draped in the usual sterile fashion. Ultrasound guidance was used to aid needle placement. A 20g Arrow arterial line was introduced into the left radial artery. Catheter was threaded, and the needle was removed with appropriate blood return. Good waveform was observed. The patient tolerated the procedure well. Conf irmation of placement with ultrasound. Blood Loss: Minimal Complications: None Procedural Ultrasound Guidance: Procedure Date: 04/20/2020 Indication: Arterial line insertion Attending: Dr. Francisco Desir Provider: LUI Cook Artery Identified: YES Line confirmed in Artery with ultrasound: Yes Complications: NONE Patient tolerated procedure: WELL Coding CPT Codes Tubes, Drains, and Vasc Access - Tubes, Drains, and Vasc Access: [id number] Place Catheter In Artery ([id number]) Tubes, Drains, and Vasc Access - Tubes, Drains, and Vasc Access: [id number] Ultrasound Guidance For Vascular ([id number]) [facility] [place] Procedure Codes (Charges) Tubes, Drains, and Vasc Access Procedure 1: Tubes, Drains, and Vasc Access: [id number] Place Catheter In Artery Procedure 2: Tubes, Drains, and Vasc Access: [id number] Ultrasound Guidance For Vascular
[2020-04-20 01:08] LABS: iSTAT Arterial Blood Gas HCO3 22 meg/L (19-24); iSTAT Arterial Blood Gas pCO2 57 mmHg (35-46); iSTAT Arterial Blood Gas pO2 101 mmHg (80-95); iSTAT Carbon Dioxide 24 mmol/L (24-31); iSTAT FiO2 50 %; iSTAT Site Art Line
[2020-04-20] MEDS ORDERED: FENTANYL BOLUS FROM BAG IV PRN (01:10)
[2020-04-20] MEDS ORDERED: LEVALBUTEROL TARTRATE 15 GM HFA.AER.AD INH PRN (01:15)
[2020-04-20] MEDS: propofoL 1,000 MG/100 ML VIAL IV SCH ×6 (01:28→23:18)
[2020-04-20] MEDS: fentaNYL DRIP 1,250 MCG/250 ML BAG IV SCH ×2 (01:29→20:34)
[2020-04-20 01:43] LABS: Appearance Urine Cloudy (Clear); Bilirubin Urine Negative (Negative); Blood Urine 3+ (Negative); Color Urine Dark Yellow; Epithelial Cell Urine Auto >30 /lpf (0-5); Glucose Urine UA Trace (Negative); Ketones Urine Negative (Negative); Leukocyte Esterase Urine Negative (Negative); Nitrite Urine Negative (Negative); Protein Urine 2+ (Negative); RBC Urine Automated >30 /hpf (0-4); Specific Gravity Urine > 1.045 (1.000-1.030); Urobilinogen Urine Negative (Negative); WBC Urine Automated >30 /hpf (0-5)
[2020-04-20] MEDS ORDERED: IPRATROPIUM BROMIDE HFA INHALER INH PRN (01:57)
[2020-04-20 02:01] LABS: Bacteria Urine Automated 1+ (Negative)
[2020-04-20 02:02] LABS: Granular Casts Urine >30 /lpf (0)
[2020-04-20] MEDS: MEPERIDINE HCL 25 MG/ML CARP/VIAL IV PRN ×4 (02:06→20:35)
[2020-04-20] MEDS ORDERED: SODIUM CHLORIDE 0.9% 1000ML 1,000 ML IV SCH (04:00)
[2020-04-20] MEDS ORDERED: CISATRACURIUM BESYLATE 40 MG in 0.9 % SODIUM CHLORIDE 80 ML IV SCH ×2 (04:15→04:30)
[2020-04-20 04:20] LABS: iSTAT Arterial Blood Gas HCO3 21 meg/L (19-24); iSTAT Arterial Blood Gas pCO2 47 mmHg (35-46); iSTAT Arterial Blood Gas pH 7.25 (7.35-7.45); iSTAT Arterial Blood Gas pO2 86 mmHg (80-95); iSTAT Carbon Dioxide 22 mmol/L (24-31); iSTAT FiO2 40 %; iSTAT Site Art Line
[2020-04-20] MEDS ORDERED: AMIODARONE RATE CHANGE ONE (04:24)
[2020-04-20 05:13] LABS: INR 4.2 (0.9-1.1); Prothrombin Time 40.8 Seconds (9.0-12.0)
[2020-04-20] MEDS ORDERED: cefTRIAXone SODIUM 2,000 MG in DEXTROSE 5% 50 ML IV SCH (06:00)
[2020-04-20] MEDS ORDERED: AMIODARONE 450 MG in D5W 250ML IN *POLYOLEFIN BAG* 241 ML IV SCH (06:15)
[2020-04-20] MEDS ORDERED: 0.2 MICRON FILTER SET 1 EA IV SCH (06:15)
[2020-04-20 06:20] LABS: Basophils # (auto) 0.01 K/uL (0-0.2); Basophils % (auto) 0.1 %; Hematocrit (blood only) 41.2 % (42-52); Immature Granulocytes # (auto) 0.03 K/uL (0.00-0.02); Immature Granulocytes % (auto) 0.2 %; Lymphocytes # (auto) 0.82 K/uL (1.2-3.4); Lymphocytes % (auto) 6.8 %; Mean Corpuscular Hemoglobin 31.3 pg (25-34); Mean Corpuscular Volume 92.2 fL (80-100); Monocytes # (auto) 0.78 K/uL (0.11-0.59); Monocytes % (auto) 6.5 %; Neutrophils # (auto) 10.41 K/uL (1.4-6.5); Neutrophils % (auto) 86.4 %; Platelet Count 241 K/uL (130-400); RDW Standard Deviation 47.1 fL (36.4-46.3); Red Blood Count 4.47 M/uL (4.7-6.1); White Blood Count 12.05 K/uL (4.8-10.8)
[2020-04-20 06:36] LABS: INR 4.7 (0.9-1.1); Partial Thromboplastin Ratio 1.4; Partial Thromboplastin Time 40.3 Seconds (21.0-31.0); Prothrombin Time 45.8 Seconds (9.0-12.0)
[2020-04-20 07:01] LABS: Albumin Level 3.3 gm/dl (3.4-5.0); BUN Creatinine Ratio 22.8 (10-20); Bilirubin Direct 0.2 mg/dl (0-0.2); Bilirubin,Total 0.5 mg/dl (0.2-1); Calcium 7.7 mg/dl (8.5-10.1); Creatinine Clr Calc Pharmacy 82.9 ml/min; Est GFR (African American) 79.5; Est GFR (Non-African American) 68.6; Magnesium 1.9 mg/dl (1.8-2.4); Phosphorus 2.7 mg/dl (2.5-4.9); Potassium 4.8 mmol/L (3.5-5.1); Total Protein 5.9 gm/dl (6.4-8.2)
--- NOTE | 2020-04-20 07:28 | CT Scan Report ---
HEAD CT NONCONTRAST CT DOSE: 691.05 mGy.cm HISTORY: Altered mental status. TECHNIQUE: Multiaxial CT images of the head were performed without the use of intravenous contrast. A utomated exposure control was utilized for this study. A dose lowering technique was utilized adheri ng to the principles of ALARA. Comparison: None. Findings: Mild motion artifact. The paranasal sinuses and mastoid air cells are clear. The calvarium and skull base are intact. The ventricles and sulci are within normal limits. There is no mass, hemat jarrett, midline shift, or acute infarct. Impression: Mild motion artifact. No definite acute intracranial abnormality. ACT 112: Negative or not required by law. Electronically signed by: Tee Dobbs M.D. 04/20/2020 7:27 AM
--- NOTE | 2020-04-20 07:40 | XRay Report ---
XR chest 1V portable HISTORY: Atypical Chest pain COMPARISON: None. FINDINGS: Endotracheal tube terminates 4.4 centers from the jasbir. Nasogastric tube terminates below the diaphragm. The tip is not included on this study. No pneumothorax. No pleural effusions. The hea rt is enlarged. There are few left basilar linear densities suggesting subsegmental atelectasis. Ther e is mild central pulmonary vascular congestion without overt edema. IMPRESSION: 1. Satisfactory support line placement. 2. Cardiomegaly. 3. Mild central pulmonary vascular congestion without overt edema. ACT 112: Negative or not required by law. Electronically signed by: Tee Dobbs M.D. 04/20/2020 7:39 AM
[2020-04-20] MEDS ORDERED: INFLUENZA VACCINE HIGH DOSE 65+ 0.5 ML SYR IM ONE (08:00)
[2020-04-20] MEDS ORDERED: PNEUMOCOCCAL ADMINISTRATION CHARGE ONE (08:00)
[2020-04-20] MEDS ORDERED: INFLUENZA ADMINISTRATION CHARGE ONE (08:00)
[2020-04-20] MEDS ORDERED: PNEUMOCOCCAL POLYSACCHARIDES 25 MCG/0.5 ML VIAL/SYR IM ONE (08:00)
[2020-04-20 08:11] LABS: iSTAT Art Bld Gas pCO2 Correct 25 mmHg (35-46); iSTAT Art Bld Gas pH Corrected 7.456 (7.35-7.45); iSTAT Arterial Blood Gas HCO3 18 meg/L (19-24); iSTAT Arterial Blood Gas pCO2 31 mmHg (35-46); iSTAT Arterial Blood Gas pH 7.38 (7.35-7.45); iSTAT Arterial Blood Gas pO2 167 mmHg (80-95); iSTAT Arterial Blood Gas pO2 C 142; iSTAT Carbon Dioxide 19 mmol/L (24-31); iSTAT FiO2 40 %; iSTAT Hematocrit 40 % (42-52); iSTAT Hemoglobin 13.6 g/dl (14.0-18.0); iSTAT Potassium 4.2 mmol/L (3.3-5.0); iSTAT Site Art Line; iSTAT Sodium 137 mmol/L (135-144)
[2020-04-20] MEDS: FAMOTIDINE 20 MG in SYRINGE 3 ML IV SCH ×2 (09:12→21:15)
[2020-04-20] MEDS ORDERED: PHARMACY GLYCEMIC MGMT CONSULT PRN (10:15)
[2020-04-20] MEDS: AMPICILLIN/SULBACTAM SOD 3,000 MG in 0.9 % SODIUM CHLORIDE 100 ML IV SCH ×3 (10:48→23:17)
[2020-04-20] MEDS: INSULIN REGULAR 250 UNITS in SODIUM CHLORIDE 0.9% 247.5 ML IV SCH (10:48)
[2020-04-20] MEDS: NORMOSOL-R 1,000 ML IV SCH ×2 (10:49→18:21)
--- NOTE | 2020-04-20 11:11 | Pharmacy Report ---
Glycemic Control Consultation - Date of Service April 20, 2020 - Scope Scope: Glycemic Pharmacist consulted for glycemic control and to write orders per [facility] inpatient glycemic control protocol. - Objective Weight: 90.1 kg Accuchecks BSG (last 24hrs): 04/19/20 04/20/20 04/20/20 22:22 03:19 05:58 Glucose 190 H 156 H POC Glucose 146 H POC Glucose (other) 04/20/20 04/20/20 10:02 10:07 Glucose POC Glucose 139 H POC Glucose (other) 151 H Laboratory Data (last 24hrs): 04/19/20 04/20/20 22:22 05:58 Potassium 3.9 4.8 D Carbon Dioxide 18 L 20 L Anion Gap 13.0 H 6.0 Creatinine 1.82 H 1.12 D Est Cr Clr Drug Dosing 55.3 82.9 - Recent Pertinent Medications Outpatient Anti-diabetic Regimen: * None * A1c ordered for tomorrow Risk Factors for Insulin Resistance: * Recent Surgery: POD 0 s/p cardiac cath * Diet: NPO * Mechanical Ventilation: yes - Assessment & Plan Assessment & Plan: ASSESSMENT: * 65 yo M with cardiac arrest s/p ROSC and initiation of 24 hour therapeutic hypothermia protocol early this AM. * Discussed at ICU rounds - tight BSG control <150 mg/dL desired for this patient, but not able to use SQ insulin 2nd therapeutic hypothermia. Therefore initiating low-dose insulin drip. Goal is to provide insulin IV (even very low dose) to keep BSG <150 mg/dL, but avoid frequent need to bolus with dextrose. Discussed goal range - selected 90-150 mg/dL. * May consider discontinuation of insulin drip if BSG's frequently <90 mg/dL (thus prompting dextrose admin per insulin drip protocol). However, if drip is discontinued, close monitoring of BSG's would be indicated to ensure they do not again climb >150 mg/dL. If they do, insulin drip would need to be resumed at that time. PLAN FOR INPATIENT GLYCEMIC CONTROL: * Start IV insulin infusion @ 0.5 units/hr and titrate per protocol * Goal Range 90 - 150 mg/dl * In the critical care setting, continuous IV insulin infusion has been shown to be the best method for achieving glycemic targets. * Avoid SQ insulin during therapeutic hypothermia protocol * Please note that the plan above was derived based on current level of insulin resistance and hospital stress. These recommendations are appropriate for inpatient admission only. Plan of care upon discharge will need to be reassessed to avoid potential outpatient hypo/hyperglycemia. Thank you.
--- NOTE | 2020-04-20 11:28 | Critical Care Progress Note ---
Date of Service April 20, 2020 Assessment & Plan (1) Cardiac arrest: Impression: 65-year-old male with out of hospital witnessed V. fib arrest of unclear etiology. He underwent cardiac catheterization which showed no coronary lesions and has been initiated on hypothermia for neuro protection. His estimated downtime was between 7 and 30 minutes although again as this event occurred during sleep is unclear when his actual arrhythmia initiated. He presented with lactic acidosis and mild transaminitis which are all improving. Recommendations: 1. Neurologic: There was some report of posturing and questionable seizure activity on presentation. He has not demonstrated any recurrent seizure activity and is currently on propofol and fentanyl. We will add Versed to his regiment. He was initially loaded on Keppra due to concerns for seizure. I will hold off on this for now. 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 Will complete the 24-hour hypothermia protocol then rewarmed the patient and take sedation off and reassess where we are neurologically at that point time. If the patient does not wake up, additional evaluation including EEG, MRI, and potentially neurological consultation may be appropriate. 2. Cardiovascular: Status post cardiac arrest. Echo shows depressed EF. History of A. fib. Unclear if the reduced EF is related to his current cardiac arrest or potential undiagnosed cardiomyopathy. He is hemodynamically stable currently. Amiodarone was initiated in the emergency room. We will continue for now pending input from cardiology. He was anticoagulated with Coumadin and has a supratherapeutic INR. No additional anticoagulation will be administered currently. If the patient is neurologically intact after this event, he may qualify for defibrillator. 3. Pulmonary: Patient was intubated due to cardiac arrest. His chest x-ray shows a questionable right upper lobe apical infiltrate. Will obtain pro calcitonin, sputum culture, and blood cultures and change antibiotics to Unasyn. Antibiotics will be tapered based on results of culture data. Continue mechanical ventilation. Respiratory rate and tidal volume will be decreased to 6 cc/kg ideal body weight and for his mild respiratory alkalosis. Given potential MANAGER GENERATION injury will try and maintain PCO2 between 35 and 42. 4. GI: Mild transaminitis on presentation possibly secondary to shock liver. Numbers are improving. Continue to follow for now. Keep n.p.o. pending resolution of hypothermia protocol. 5. ID: Patient is currently day #2 antibiotics, currently Unasyn for potential aspiration pneumonia as well as urinary tract infection although his urinalysis does appear more consistent with a contaminated specimen given the high number of epithelial cells. Await culture data. 6. Endocrine: Initiate insulin infusion. The patient is unlikely to absorb subcutaneous insulin reliably given the hypothermia protocol and systemic vasoconstriction. No prior history of diabetes. May be stress response. 7. Renal: Patient presented with serum creatinine of 1.8 now down to 1.1. Suspect hypoperfusion and possible ATN. We will continue to monitor for now. Electrolytes and acid-base status are reasonable. Mild hypocalcemia which will be corrected. 8. Heme-onc: Elevated INR secondary to Coumadin and potential shock liver. No signs of bleeding currently. We will continue to monitor INR and allow to drift down. If there is signs of bleeding, will administer FFP. Patient is critically ill with significant potential for loss of life and function. Updated via telephone. Discussed on multidisciplinary rounds and with ICU critical care nurse on bedside rounds. A total of 75 minutes crit ical care time evaluating managing and stabilizing patient. (2) A-fib: (3) On warfarin therapy: Admission and Anticipated Discharge Date Admission Date: April 19, 2020 Subjective Patient is intubated and sedated. On the hypothermia protocol Review of Systems Review of Systems: Unobtainable due to endotracheal tube Results & Data Results & Data ([facility]) Vital Signs (Past 12 Hours) Vital Signs Temp Temp Temp Pulse Pulse Resp BP 04/20/20 11:09 47 L 18 04/20/20 10:12 47 L 18 04/20/20 09:00 32.2 C L 32 C L 50 L 20 04/20/20 08:00 32.2 C L 32.2 C L 59 L 20 04/20/20 07:00 32 C L 31.9 C L 51 L 20 04/20/20 06:58 58 L 20 04/20/20 06:00 59 L 04/20/20 05:57 61 147/68 H 04/20/20 05:42 62 136/76 04/20/20 05:35 59 L 20 04/20/20 05:27 65 110/76 04/20/20 05:12 70 153/74 H 04/20/20 05:00 68 04/20/20 04:58 74 04/20/20 04:57 73 126/83 04/20/20 04:42 80 117/79 04/20/20 04:30 80 04/20/20 04:27 77 143/74 H 04/20/20 04:13 87 141/74 H 04/20/20 04:00 82 112/71 04/20/20 03:57 90 163/78 H 04/20/20 03:42 93 H 170/78 H 04/20/20 03:40 108/76 04/20/20 03:30 92 H 04/20/20 03:19 91 H 135/78 04/20/20 03:18 36.3 C L 36.1 C L 90 20 04/20/20 03:14 91 H 67/51 L 04/20/20 03:11 36.2 C L 36.1 C L 90 20 04/20/20 03:01 92 H 107/76 04/20/20 03:00 96 H 04/20/20 01:39 35.9 C L 105 H 22 04/20/20 01:31 103 H 04/20/20 01:30 98 H 185/85 H 04/20/20 00:15 103 H 31 H BP BP Pulse Ox 04/20/20 11:09 100 04/20/20 10:12 100 04/20/20 09:00 152/77 H 116/74 04/20/20 08:00 144/69 H 106/69 100 04/20/20 07:00 146/62 H 100/66 100 04/20/20 06:58 100 04/20/20 06:00 04/20/20 05:57 100 04/20/20 05:42 100 04/20/20 05:35 100 04/20/20 05:27 100 04/20/20 05:12 100 04/20/20 05:00 04/20/20 04:58 04/20/20 04:57 100 04/20/20 04:42 100 04/20/20 04:30 04/20/20 04:27 99 04/20/20 04:13 97 04/20/20 04:00 99 04/20/20 03:57 93 04/20/20 03:42 98 04/20/20 03:40 04/20/20 03:30 04/20/20 03:19 04/20/20 03:18 112/64 98 04/20/20 03:14 04/20/20 03:11 108/72 98 04/20/20 03:01 04/20/20 03:00 04/20/20 01:39 180/81 H 98 04/20/20 01:31 100 04/20/20 01:30 100 04/20/20 00:15 Laboratory Results 04/20/20 05:58 04/20/20 05:58 INR 4.7 Blood gas showed a temp corrected pH of 7.45 with a PCO2 of 25 and a PO2 of 142 Lactate decreased to 1.9 Calcium 7.7 LFTs with AST of 636 up from 569 and ALT of 571 down from 698. Alk phos remains normal. Albumin 3.3 Urinalysis cloudy with 2+ protein and 3+ blood with greater than 30 white blood cells per high-power field as well as greater than 30 red cells per high-power field and 1+ bacteria with greater than 30 epithelial cells. Appears to be contaminated specimen Diagnostic Findings Chest x-ray was independently reviewed. Unclear if there is a slight infiltrate in the right lung apex. Lung volumes are slightly low. Endotracheal tube in good position. Echocardiogram from today showed an EF of 20 to 25% with concentric LVH and diffuse hypokinesis. Moderate mitral regurgitation. Coding Level of Care Code Critical Care 1st 30-74 mins Diagnoses Cardiac arrest I46.9 A-fib I48.91 On warfarin therapy Z79.01 Time Spent (min) 75 Comment Please code [id number] and [id number]
[2020-04-20] MEDS ORDERED: GLUCOSE 10 TABS/TUBE PO PRN (11:30)
[2020-04-20] MEDS ORDERED: GLUCOSE 40% GEL 15 GM TUBE PO PRN (11:30)
[2020-04-20] MEDS ORDERED: DEXTROSE 50% 50 ML SYRINGE IV PRN (11:30)
[2020-04-20] MEDS ORDERED: CARBOHYDRATES FOR HYPOGLYCEMIA PO PRN (11:30)
[2020-04-20] MEDS ORDERED: GLUCAGON FOR INJ 1 MG VIAL IM PRN (11:30)
[2020-04-20] MEDS ORDERED: INSULIN ASPART 100 UNITS/ML 3 ML PEN SC SCH (11:30)
[2020-04-20] MEDS ORDERED: levETIRAcetam 500 MG in 0.9 % SODIUM CHLORIDE 100 ML IV SCH (12:00)
[2020-04-20] MEDS ORDERED: SODIUM BICARB 8.4% INJ 50 MEQ/50 ML SYR IV ONE (12:00)
[2020-04-20] MEDS ORDERED: CALCIUM CHLORIDE 10% 1,000 MG in SODIUM CHLORIDE 0.9% 50 ML IV STA (12:02)
[2020-04-20] MEDS: MIDAZOLAM HCL 1 MG/ML 2ML VIAL IV PRN ×2 (12:04→20:48)
[2020-04-20 12:08] LABS: iSTAT Art Bld Gas pCO2 Correct 41 mmHg (35-46); iSTAT Art Bld Gas pH Corrected 7.258 (7.35-7.45); iSTAT Arterial Blood Gas HCO3 20 meg/L (19-24); iSTAT Arterial Blood Gas pCO2 51 mmHg (35-46); iSTAT Arterial Blood Gas pH 7.19 (7.35-7.45); iSTAT Arterial Blood Gas pO2 165 mmHg (80-95); iSTAT Arterial Blood Gas pO2 C 140; iSTAT Carbon Dioxide 21 mmol/L (24-31); iSTAT FiO2 40 %; iSTAT Hematocrit 41 % (42-52); iSTAT Hemoglobin 13.9 g/dl (14.0-18.0); iSTAT Potassium 3.7 mmol/L (3.3-5.0); iSTAT Site Art Line; iSTAT Sodium 141 mmol/L (135-144)
[2020-04-20 13:09] LABS: Hematocrit (blood only) 41.1 % (42-52); Hemoglobin 13.9 g/dL (14.0-18.0); Immature Granulocytes # (auto) 0.01 K/uL (0.00-0.02); Immature Granulocytes % (auto) 0.1 %; Lymphocytes # (auto) 0.89 K/uL (1.2-3.4); Lymphocytes % (auto) 9.4 %; Mean Corpuscular Hgb Conc 33.8 g/dL (32-36); Mean Corpuscular Volume 91.7 fL (80-100); Mean Platelet Volume 9.9 fL (7.4-10.4); Monocytes # (auto) 0.84 K/uL (0.11-0.59); Monocytes % (auto) 8.8 %; Neutrophils # (auto) 7.76 K/uL (1.4-6.5); Neutrophils % (auto) 81.7 %; Platelet Count 232 K/uL (130-400); RDW Coefficient of Variation 13.9 % (11.5-14.5); RDW Standard Deviation 46.3 fL (36.4-46.3); Red Blood Count 4.48 M/uL (4.7-6.1)
--- NOTE | 2020-04-20 13:26 | Cardiology Consultation ---
Date of Consultation April 20, 2020 Assessment & Plan (1) Cardiac arrest: (2) Ventricular fibrillation: (3) Left bundle branch block: (4) A-fib: (5) On warfarin therapy: (6) AIVR (accelerated idioventricular rhythm): 65-year-old male with history of chronic atrial fibrillation presents with out of hospital cardiac arrest. Downtime unknown. He is currently on an [facility] protocol. Hemodynamically stable with periods of bradycardia and accelerated idioventricular rhythm per telemetry monitoring. I suspect his accelerated idioventricular rhythm is related to global hypoperfusion/reperfusion in the setting of cardiac arrest/VF and successful CPR. No recurrent ventricular tachycardia/ventricular fibrillation since admission. LFTs are elevated secondary to transient hypoperfusion. Amiodarone will be placed on hold. Add low-dose beta-rafaela, metoprolol 2.5 mg IV every 6 hours with hold parameters. If patient begins experiencing frequent ventricular ectopy or episodes of nonsustained ventricular tachycardia, IV amiodarone may be restarted. Electrophysiology consultation regarding biventricular ICD implantation pending reassessment of neurologic status post [facility] protocol. Thank you for allowing to participate in the care of your patient. Cardiology will continue to follow patient during hospitalization History of Present Illness Reason for Consultation: Cardiac arrest Requesting Physician: Dr. Laguerre Attending Physician: Zhane Laguerre MD History of Present Illness 65-year-old male with out of hospital cardiac arrest 04/19/2020. Patient was brought to the ER and subsequently to the cardiac catheterization lab. Coronary angiography demonstrated essentially normal coronary arteries. Code [facility] was called and patient was cooled overnight. Treated with IV amiodarone. 2D transthoracic echocardiogram performed this morning demonstrates ejection fraction of 20 to 25%, moderate concentric left ventricular hypertrophy, and mild to moderate mitral regurgitation. Previous echocardiogram performed May 2018 demonstrated normal left ventricular systolic function. Carries history of chronic A. fib on chronic anticoagulation with Coumadin. INR supratherapeutic on admission,3.2. INR has trended upward to 4.7 today. Telemetry reviewed demonstrating atrial fibrillation with slow ventricular response as well as brief periods of accelerated idioventricular rhythm at a rate of 60 bpm. Patient currently sedated/paralyzed on the ventilator. Allergies Allergy/AdvReac Type Severity Reaction Status Date / Time No Known Allergies Allergy Verified 04/19/20 22:14 Home Medications Home Medications Medication Instructions Recorded Confirmed Type digoxin [Digitek] 250 mcg PO DAILY 04/19/20 04/19/20 History fenofibrate nanocrystallized 145 mg PO DAILY 04/19/20 04/19/20 History losartan 50 mg PO DAILY 04/19/20 04/19/20 History metoprolol succinate 25 mg PO DAILY 04/19/20 04/19/20 History multivitamin 1 tab PO DAILY 04/19/20 04/19/20 History sildenafil (pulm.hypertension) 100 mg PO DAILY PRN 04/19/20 04/19/20 History [Revatio] warfarin 2.5 mg PO DAILY 04/19/20 04/19/20 History Patient History Medical History A-fib (Acute) Left bundle branch block (Acute) On warfarin therapy Social History Preferred Language: Maltese Communication Ability: Unable Miscellaneous Machine Operator Required: No Beliefs That Will Affect Care: None marital status: Current Living Situation: Spouse Feels Safe at Home: Declines to Answer Smoking Status: Never smoker Hx Substance Use: No Review of Systems Review of Systems: Unobtainable due to endotracheal tube and Unobtainable due to reduced consciousness Physical Exam Constitutional: well developed, well nourished and average body habitus; no acute distress and not ill appearing Respiratory: Auscultation: no crackles, no rales, no rhonchi and no wheezes Cardiovascular: Rate/Rhythm: + irregularly irregular Heart Sounds: normal S1 and normal S2; no murmur and no cardiac rub Vessels: no JVD and no carotid bruit Extremities: no edema Gastrointestinal (Abdomen): Inspection/Auscultation: abdomen normal to inspection and normal bowel sounds; abdomen not distended Percu ssion/Palpation: abdomen soft; abdomen nontender, no guarding and abdomen not rigid Skin: no rashes, warm and dry Results & Data ([facility]) Vital Signs (Past 12 Hours) Vital Signs Temp Temp Temp Pulse Pulse Resp BP 04/20/20 13:00 32.6 C L 32 C L 58 L 21 04/20/20 12:00 32.1 C L 32.1 C L 58 L 18 04/20/20 11:09 47 L 18 04/20/20 11:00 32 C L 32 C L 50 L 18 04/20/20 10:12 47 L 18 04/20/20 10:00 32.1 C L 32.1 C L 48 L 04/20/20 09:00 32.2 C L 32 C L 50 L 04/20/20 08:00 32.2 C L 32.2 C L 59 L 20 04/20/20 07:00 32 C L 31.9 C L 51 L 20 04/20/20 06:58 58 L 20 04/20/20 06:00 59 L 04/20/20 05:57 61 147/68 H 04/20/20 05:42 62 136/76 04/20/20 05:35 59 L 20 04/20/20 05:27 65 110/76 04/20/20 05:12 70 153/74 H 04/20/20 05:00 68 04/20/20 04:58 74 04/20/20 04:57 73 126/83 04/20/20 04:42 80 117/79 04/20/20 04:30 80 04/20/20 04:27 77 143/74 H 04/20/20 04:13 87 141/74 H 04/20/20 04:00 82 112/71 04/20/20 03:57 90 163/78 H 04/20/20 03:42 93 H 170/78 H 04/20/20 03:40 108/76 04/20/20 03:30 92 H 04/20/20 03:19 91 H 135/78 04/20/20 03:18 36.3 C L 36.1 C L 90 04/20/20 03:14 91 H 67/51 L 04/20/20 03:11 36.2 C L 36.1 C L 90 04/20/20 03:01 92 H 107/76 04/20/20 03:00 96 H 04/20/20 01:39 35.9 C L 105 H 04/20/20 01:31 103 H 04/20/20 01:30 98 H 185/85 H BP BP Pulse Ox 04/20/20 13:00 169/89 H 99/55 L 100 04/20/20 12:00 172/79 H 96/57 L 100 04/20/20 11:09 100 04/20/20 11:00 109/64 100 06/05/20 10:12 100 04/20/20 10:00 163/81 H 124/77 100 04/20/20 09:00 152/77 H 116/74 04/20/20 08:00 144/69 H 106/69 100 04/20/20 07:00 146/62 H 100/66 100 04/20/20 06:58 100 04/20/20 06:00 04/20/20 05:57 100 04/20/20 05:42 100 04/20/20 05:35 100 04/20/20 05:27 100 04/20/20 05:12 100 04/20/20 05:00 04/20/20 04:58 04/20/20 04:57 100 04/20/20 04:42 100 04/20/20 04:30 04/20/20 04:27 99 04/20/20 04:13 97 04/20/20 04:00 99 04/20/20 03:57 93 04/20/20 03:42 98 04/20/20 03:40 04/20/20 03:30 04/20/20 03:19 04/20/20 03:18 112/64 98 04/20/20 03:14 04/20/20 03:11 108/72 98 04/20/20 03:01 04/20/20 03:00 04/20/20 01:39 180/81 H 98 04/20/20 01:31 100 04/20/20 01:30 100
[2020-04-20 13:45] LABS: BUN Creatinine Ratio 23.1 (10-20); Creatinine Clr Calc Pharmacy 100.9 ml/min; Est GFR (African American) 100.8; Phosphorus 3.8 mg/dl (2.5-4.9); Potassium 3.9 mmol/L (3.5-5.1)
[2020-04-20 14:49] LABS: INR 6.1 (0.9-1.1); Partial Thromboplastin Ratio 1.7; Partial Thromboplastin Time 47.8 Seconds (21.0-31.0); Prothrombin Time 58.7 Seconds (9.0-12.0)
[2020-04-20] MEDS ORDERED: SODIUM CHLORIDE 0.9% 250 ML IV PRN (15:00)
[2020-04-20] MEDS ORDERED: NOREPINEPHRINE BIT INJ 8 MG in DEXTROSE 5% 500 ML IV SCH (15:30)
[2020-04-20] MEDS ORDERED: ATROPINE SULFATE 0.1 MG/ML 10ML SYR IV ONE (16:11)
[2020-04-20] MEDS ORDERED: Nursing to Pharmacy Communication ONE (16:15)
[2020-04-20 16:34] LABS: iSTAT Arterial Blood Gas HCO3 19 meg/L (19-24); iSTAT Arterial Blood Gas pCO2 36 mmHg (35-46); iSTAT Arterial Blood Gas pH 7.34 (7.35-7.45); iSTAT Arterial Blood Gas pO2 136 mmHg (80-95); iSTAT Carbon Dioxide 20 mmol/L (24-31); iSTAT FiO2 30 %; iSTAT Site Art Line
[2020-04-20] MEDS ORDERED: ATROPINE SULFATE 0.1 MG/ML 10ML SYR IV PRN (17:17)
[2020-04-20] MEDS: METOPROLOL TARTRATE 1 MG/ML VIAL IV SCH (17:44)
--- NOTE | 2020-04-20 18:15 | Hospitalist Progress Note ---
Date of Service April 20, 2020 Assessment & Plan (1) Cardiac arrest: S/P cardiac arrest unknown etiology Successful CPR with return of spontaneous circulation post defibrillation. Intubated on Francisco support Initial V. fib rhythm as per report S/P cardiac cath showed no significant blockage On Hypothermia protocol Continue monitor in the ICU Ventricular Fibrillation Afib ECHO showed ejection fraction of 20 to 25% Amiodarone on hold due to bradycardia Coumadin on hold Cardiology on board Consider biventricular ICD implantation once stable by electrophysiology Consider low dose metoprol PRN if HR uncontrolled Hypotension Continue Levophed drip Continue monitor BP Hyperglycemia Will check Hba1c in am Continue insulin drip protocol Questionable R Upper Lobe Infiltrate possible related to aspiration WBC and procalcitonin normal and afebrile Continue unasyn for now DVT px INR 6.1 CODE status Full code Admission and Anticipated Discharge Date Admission Date: April 19, 2020 Subjective Pt was seen and examined Sedated/ Intubated on Vent support Hypothermia protocol Physical Exam Physical Exam: General- sedated Head- atraumatic ENT- Intubated Neck- supple, no JVD Lungs- Mech Ventilation Heart- irregular rhythm; no murmur Abdomen- normal bowel sounds, soft, nontender Extremities- no calf tenderness Neuro- sedated/paralysis Skin- warm & dry Results & Data Results & Data ([facility]) Vital Signs (Past 12 Hours) Vital Signs Temp Temp Temp Pulse Resp BP BP 04/20/20 18:00 32.1 C L 32.2 C L 45 L 18 04/20/20 17:56 32.2 C L 45 L 18 113/62 04/20/20 17:44 49 L 109/65 04/20/20 17:26 32 C L 46 L 18 112/63 04/20/20 17:11 32 C L 74 18 115/68 04/20/20 17:00 32.1 C L 32 C L 53 L 18 04/20/20 16:55 32 C L 18 161/90 H 04/20/20 16:00 32 C L 32 C L 48 L 18 168/90 H 04/20/20 15:40 40 L 18 04/20/20 15:00 32.1 C L 32.1 C L 47 L 18 140/69 04/20/20 14:00 32.2 C L 32 C L 55 L 19 04/20/20 13:00 32.6 C L 32 C L 58 L 21 169/89 H 04/20/20 12:00 32.1 C L 32.1 C L 58 L 18 172/79 H 04/20/20 11:09 47 L 18 04/20/20 11:00 32 C L 32 C L 50 L 18 04/20/20 10:12 47 L 18 04/20/20 10:00 32.1 C L 32.1 C L 48 L 20 163/81 H 04/20/20 09:00 32.2 C L 32 C L 50 L 20 152/77 H 04/20/20 08:00 32.2 C L 32.2 C L 59 L 20 144/69 H 04/20/20 07:00 32 C L 31.9 C L 51 L 20 146/62 H 04/20/20 06:58 58 L 20 BP Pulse Ox 04/20/20 18:00 110/62 100 04/20/20 17:56 100 04/20/20 17:44 04/20/20 17:26 100 04/20/20 17:11 100 04/20/20 17:00 139/74 100 04/20/20 16:55 92 04/20/20 16:00 83/51 L 100 04/20/20 15:40 100 04/20/20 15:00 85/52 L 100 04/20/20 14:00 89/51 L 100 04/20/20 13:00 99/55 L 100 04/20/20 12:00 96/57 L 100 04/20/20 11:09 100 04/20/20 11:00 109/64 100 04/20/20 10:12 100 04/20/20 10:00 124/77 100 04/20/20 09:00 116/74 04/20/20 08:00 106/69 100 04/20/20 07:00 100/66 100 04/20/20 06:58 100
[2020-04-20 19:16] LABS: Basophils # (auto) 0.01 K/uL (0-0.2); Basophils % (auto) 0.1 %; Eosinophils # (auto) 0.01 K/uL (0-0.5); Eosinophils % (auto) 0.1 %; Hematocrit (blood only) 39.4 % (42-52); Hemoglobin 13.4 g/dL (14.0-18.0); Immature Granulocytes # (auto) 0.02 K/uL (0.00-0.02); Immature Granulocytes % (auto) 0.2 %; Lymphocytes # (auto) 1.74 K/uL (1.2-3.4); Mean Corpuscular Hemoglobin 31.3 pg (25-34); Mean Corpuscular Volume 92.1 fL (80-100); Mean Platelet Volume 9.9 fL (7.4-10.4); Monocytes % (auto) 13.7 %; Neutrophils # (auto) 7.05 K/uL (1.4-6.5); Neutrophils % (auto) 68.9 %; Platelet Count 237 K/uL (130-400); RDW Standard Deviation 47.2 fL (36.4-46.3); Red Blood Count 4.28 M/uL (4.7-6.1); White Blood Count 10.23 K/uL (4.8-10.8)
[2020-04-20 19:34] LABS: INR 3.9 (0.9-1.1); Partial Thromboplastin Ratio 1.6; Partial Thromboplastin Time 43.8 Seconds (21.0-31.0); Prothrombin Time 37.9 Seconds (9.0-12.0)
[2020-04-20 19:53] LABS: BUN Creatinine Ratio 24.3 (10-20); Creatinine Clr Calc Pharmacy 111.8 ml/min; Est GFR (Non-African American) 92.3; Magnesium 2.2 mg/dl (1.8-2.4); Phosphorus 2.6 mg/dl (2.5-4.9); Potassium 2.8 mmol/L (3.5-5.1)
[2020-04-20 20:25] LABS: iSTAT Arterial Blood Gas HCO3 21 meg/L (19-24); iSTAT Arterial Blood Gas pCO2 52 mmHg (35-46); iSTAT Arterial Blood Gas pH 7.21 (7.35-7.45); iSTAT Arterial Blood Gas pO2 124 mmHg (80-95); iSTAT Carbon Dioxide 22 mmol/L (24-31); iSTAT FiO2 30 %; iSTAT Site Art Line
[2020-04-20] MEDS ORDERED: POTASSIUM CHLORIDE 20 MEQ/15 ML UDC PO STA (22:32)
[2020-04-20] MEDS: POTASSIUM CHLORIDE / WTR 20 MEQ/100 ML PLCT IV SCH (23:18)
[2020-04-21] MEDS: METOPROLOL TARTRATE 1 MG/ML VIAL IV SCH ×2 (00:01→06:24)
[2020-04-21 00:43] LABS: iSTAT Arterial Blood Gas HCO3 20 meg/L (19-24); iSTAT Arterial Blood Gas pCO2 48 mmHg (35-46); iSTAT Arterial Blood Gas pH 7.23 (7.35-7.45); iSTAT Arterial Blood Gas pO2 142 mmHg (80-95); iSTAT Carbon Dioxide 21 mmol/L (24-31); iSTAT FiO2 30 %; iSTAT Site Art Line
[2020-04-21 01:13] LABS: Basophils # (auto) 0.01 K/uL (0-0.2); Basophils % (auto) 0.1 %; Hematocrit (blood only) 37.7 % (42-52); Hemoglobin 12.9 g/dL (14.0-18.0); Immature Granulocytes # (auto) 0.02 K/uL (0.00-0.02); Immature Granulocytes % (auto) 0.2 %; Lymphocytes # (auto) 1.06 K/uL (1.2-3.4); Lymphocytes % (auto) 8.7 %; Mean Corpuscular Hemoglobin 31.6 pg (25-34); Mean Corpuscular Hgb Conc 34.2 g/dL (32-36); Mean Corpuscular Volume 92.4 fL (80-100); Mean Platelet Volume 9.8 fL (7.4-10.4); Monocytes # (auto) 1.18 K/uL (0.11-0.59); Monocytes % (auto) 9.7 %; Neutrophils # (auto) 9.86 K/uL (1.4-6.5); Neutrophils % (auto) 81.3 %; Platelet Count 228 K/uL (130-400); RDW Coefficient of Variation 14.1 % (11.5-14.5); RDW Standard Deviation 47.4 fL (36.4-46.3); Red Blood Count 4.08 M/uL (4.7-6.1); White Blood Count 12.13 K/uL (4.8-10.8)
[2020-04-21] MEDS: POTASSIUM CHLORIDE / WTR 20 MEQ/100 ML PLCT IV SCH (01:20)
[2020-04-21 01:32] LABS: INR 3.1 (0.9-1.1); Partial Thromboplastin Ratio 1.5; Prothrombin Time 30.8 Seconds (9.0-12.0)
[2020-04-21 01:39] LABS: Bilirubin Direct 0.2 mg/dl (0-0.2); Bilirubin,Total 0.4 mg/dl (0.2-1); Total Protein 6.1 gm/dl (6.4-8.2)
[2020-04-21 01:50] LABS: Albumin Level 3.2 gm/dl (3.4-5.0)
[2020-04-21 01:51] LABS: BUN Creatinine Ratio 16.9 (10-20); Calcium 7.5 mg/dl (8.5-10.1); Creatinine Clr Calc Pharmacy 89.2 ml/min; Est GFR (African American) 86.9; Phosphorus 3.5 mg/dl (2.5-4.9); Potassium 3.6 mmol/L (3.5-5.1)
[2020-04-21] MEDS: propofoL 1,000 MG/100 ML VIAL IV SCH ×6 (02:06→20:13)
[2020-04-21] MEDS: NORMOSOL-R 1,000 ML IV SCH ×3 (02:28→16:11)
[2020-04-21] MEDS: AMPICILLIN/SULBACTAM SOD 3,000 MG in 0.9 % SODIUM CHLORIDE 100 ML IV SCH ×4 (04:15→22:01)
[2020-04-21 04:18] LABS: iSTAT Arterial Blood Gas HCO3 18 meg/L (19-24); iSTAT Arterial Blood Gas pCO2 42 mmHg (35-46); iSTAT Arterial Blood Gas pH 7.23 (7.35-7.45); iSTAT Arterial Blood Gas pO2 145 mmHg (80-95); iSTAT Carbon Dioxide 19 mmol/L (24-31); iSTAT FiO2 30 %; iSTAT Site Art Line
[2020-04-21 06:13] LABS: Estimated Average Glucose 114 mg/dl; Hemoglobin A1C 5.6 % (4.5-5.6)
--- NOTE | 2020-04-21 06:51 | Electrocardiogram Report ---
Test Reason : Blood Pressure : / mmHG Vent. Rate : 087 BPM Atrial Rate : 065 BPM P-R Int : 000 ms QRS Dur : 158 ms QT Int : 452 ms P-R-T Axes : 000 -63 102 degrees QTc Int : 543 ms Poor data quality, interpretation may be adversely affected Atrial fibrillation with premature ventricular or aberrantly conducted complexes Left axis deviation Left bundle branch block Abnormal ECG Confirmed by Marcus Jones ([id number]) on 04/21/2020 6:51:20 AM Referred By: REFERRED SELF Confirmed By:Marcus Jones
--- NOTE | 2020-04-21 06:53 | Electrocardiogram Report ---
Test Reason : Blood Pressure : / mmHG Vent. Rate : 070 BPM Atrial Rate : 119 BPM P-R Int : 000 ms QRS Dur : 152 ms QT Int : 500 ms P-R-T Axes : 000 -47 -54 degrees QTc Int : 540 ms Atrial fibrillation Left axis deviation Left bundle branch block Abnormal ECG When compared with ECG of 20-APR-2020 01:45, (unconfirmed) No significant change Confirmed by Marcus Jones ([id number]) on 04/21/2020 6:53:32 AM Referred By: REFERRED SELF Confirmed By:Marcus Jones
--- NOTE | 2020-04-21 06:53 | Electrocardiogram Report ---
Test Reason : Blood Pressure : / mmHG Vent. Rate : 100 BPM Atrial Rate : 110 BPM P-R Int : 000 ms QRS Dur : 152 ms QT Int : 390 ms P-R-T Axes : 000 -46 096 degrees QTc Int : 503 ms Atrial fibrillation Left axis deviation Left bundle branch block Abnormal ECG No previous ECGs available Confirmed by Marcus Jones ([id number]) on 04/21/2020 6:52:55 AM Referred By: REFERRED SELF Confirmed By:Marcus Jones
--- NOTE | 2020-04-21 07:00 | Electrocardiogram Report ---
Test Reason : Blood Pressure : / mmHG Vent. Rate : 048 BPM Atrial Rate : 000 BPM P-R Int : 000 ms QRS Dur : 164 ms QT Int : 628 ms P-R-T Axes : 000 -37 -69 degrees QTc Int : 561 ms Atrial fibrillation with slow ventricular response with AIVR Left axis deviation Left bundle branch block Abnormal ECG When compared with ECG of 20-APR-2020 05:03, (unconfirmed) AIVR is now present Confirmed by Marcus Jones ([id number]) on 04/21/2020 7:00:30 AM Referred By: REFERRED SELF Confirmed By:Marcus Jones
--- NOTE | 2020-04-21 07:05 | Electrocardiogram Report ---
Test Reason : Blood Pressure : / mmHG Vent. Rate : 065 BPM Atrial Rate : 071 BPM P-R Int : 000 ms QRS Dur : 168 ms QT Int : 538 ms P-R-T Axes : 000 -41 -61 degrees QTc Int : 559 ms Atrial fibrillation Left axis deviation Left bundle branch block Abnormal ECG When compared with ECG of 20-APR-2020 08:57, (unconfirmed) T wave inversion no longer evident in Anterolateral leads Confirmed by Marcus Jones ([id number]) on 04/21/2020 7:05:15 AM Referred By: REFERRED SELF Confirmed By:Marcus Jones
[2020-04-21 07:08] LABS: Eosinophils # (auto) 0.01 K/uL (0-0.5); Eosinophils % (auto) 0.1 %; Hematocrit (blood only) 39.1 % (42-52); Hemoglobin 12.9 g/dL (14.0-18.0); Immature Granulocytes # (auto) 0.01 K/uL (0.00-0.02); Immature Granulocytes % (auto) 0.1 %; Lymphocytes # (auto) 1.29 K/uL (1.2-3.4); Lymphocytes % (auto) 11.5 %; Mean Corpuscular Hemoglobin 31.2 pg (25-34); Mean Corpuscular Volume 94.4 fL (80-100); Mean Platelet Volume 10.2 fL (7.4-10.4); Monocytes # (auto) 1.06 K/uL (0.11-0.59); Monocytes % (auto) 9.4 %; Neutrophils # (auto) 8.85 K/uL (1.4-6.5); Neutrophils % (auto) 78.9 %; Platelet Count 224 K/uL (130-400); RDW Coefficient of Variation 14.4 % (11.5-14.5); Red Blood Count 4.14 M/uL (4.7-6.1); White Blood Count 11.22 K/uL (4.8-10.8)
--- NOTE | 2020-04-21 07:09 | Electrocardiogram Report ---
Test Reason : Blood Pressure : / mmHG Vent. Rate : 065 BPM Atrial Rate : 054 BPM P-R Int : 000 ms QRS Dur : 168 ms QT Int : 546 ms P-R-T Axes : 000 -39 005 degrees QTc Int : 567 ms Poor data quality, interpretation may be adversely affected Atrial fibrillation Left axis deviation Left bundle branch block Abnormal ECG When compared with ECG of 20-APR-2020 12:56, (unconfirmed) No significant change was found Confirmed by Marcus Jones ([id number]) on 04/21/2020 7:08:40 AM Referred By: REFERRED SELF Confirmed By:Marcus Jones
--- NOTE | 2020-04-21 07:09 | Electrocardiogram Report ---
Test Reason : Blood Pressure : / mmHG Vent. Rate : 059 BPM Atrial Rate : 080 BPM P-R Int : 000 ms QRS Dur : 168 ms QT Int : 636 ms P-R-T Axes : 000 -27 -72 degrees QTc Int : 629 ms Atrial fibrillation with slow ventricular response Left bundle branch block Abnormal ECG When compared with ECG of 20-APR-2020 22:28, (unconfirmed) No significant change Confirmed by Marcus Jones ([id number]) on 04/21/2020 7:08:59 AM Referred By: REFERRED SELF Confirmed By:Marcus Jones
[2020-04-21 07:31] LABS: INR 3.9 (0.9-1.1); Partial Thromboplastin Ratio 1.6; Prothrombin Time 37.8 Seconds (9.0-12.0)
[2020-04-21 07:33] LABS: Partial Thromboplastin Time 45.9 Seconds (21.0-31.0)
[2020-04-21 07:37] LABS: Calcium 7.7 mg/dl (8.5-10.1); Creatinine Clr Calc Pharmacy 86.7 ml/min; Est GFR (Non-African American) 72.5; Magnesium 2.1 mg/dl (1.8-2.4); Potassium 3.6 mmol/L (3.5-5.1)
[2020-04-21 07:39] LABS: Phosphorus 2.9 mg/dl (2.5-4.9)
--- NOTE | 2020-04-21 07:42 | XRay Report ---
XR chest 1V portable CLINICAL HISTORY: resp failure dyspnea COMPARISON STUDY: 04/19/2020 FINDINGS: Nasogastric tube within the stomach. Endotracheal tube 7 cm above the jasbir. Lungs are grossly clear. Improved aeration left lung base compared to the prior study with minimal re sidual atelectasis. IMPRESSION: 1. Endotracheal tube 7 cm above the jasbir. 2. Nasogastric tube within the mid stomach. 3. Improved aeration left base with mild residual atelectatic change. ACT 112: Negative or not required by law. The above report was generated using voice recognition software. It may contain grammatical, syntax or spelling errors. Electronically signed by: Edy Vines M.D. 04/21/2020 7:41 AM
[2020-04-21 08:15] LABS: iSTAT Arterial Blood Gas HCO3 19 meg/L (19-24); iSTAT Arterial Blood Gas pCO2 42 mmHg (35-46); iSTAT Arterial Blood Gas pH 7.26 (7.35-7.45); iSTAT Arterial Blood Gas pO2 135 mmHg (80-95); iSTAT Carbon Dioxide 20 mmol/L (24-31); iSTAT FiO2 30 %; iSTAT Site Art Line
[2020-04-21] MEDS ORDERED: SODIUM BICARB 8.4% INJ 50 MEQ/50 ML SYR IV ONE (09:00)
[2020-04-21] MEDS: FAMOTIDINE 20 MG in SYRINGE 3 ML IV SCH ×2 (09:18→22:01)
[2020-04-21] MEDS: fentaNYL DRIP 1,250 MCG/250 ML BAG IV SCH (09:28)
--- NOTE | 2020-04-21 09:36 | Pharmacy Report ---
Pharmacy Glycemic Short Note 2 - Date of Service April 21, 2020 - Glycemic Short BSG Results (Last 24 hours): 04/20/20 04/20/20 04/20/20 10:02 10:07 12:51 Glucose 113 H POC Glucose 139 H POC Glucose (other) 151 H 04/20/20 04/20/20 04/20/20 12:57 14:04 15:16 Glucose POC Glucose POC Glucose (other) 110 H 96 99 04/20/20 04/20/20 04/20/20 16:03 17:07 18:04 Glucose POC Glucose POC Glucose (other) 98 113 H 115 H 04/20/20 04/20/20 04/20/20 19:03 19:22 20:05 Glucose 126 H POC Glucose POC Glucose (other) 131 H 148 H 04/20/20 04/20/20 04/20/20 21:10 22:00 23:08 Glucose POC Glucose POC Glucose (other) 165 H 168 H 164 H 04/21/20 04/21/20 04/21/20 00:11 01:05 01:09 Glucose 162 H POC Glucose POC Glucose (other) 156 H 162 H 04/21/20 04/21/20 04/21/20 02:20 03:20 04:10 Glucose POC Glucose POC Glucose (other) 171 H 175 H 177 H 04/21/20 04/21/20 04/21/20 05:17 06:07 06:49 Glucose 166 H POC Glucose POC Glucose (other) 176 H 172 H 04/21/20 04/21/20 04/21/20 06:56 08:09 09:05 Glucose POC Glucose POC Glucose (other) 170 H 166 H 161 H OUTPATIENT ANTIDIABETIC REGIMEN: * N/A no diagnosis of baseline DM per A1c of 5.6% on 04/21/2020 ASSESSMENT: * 65 yo M with cardiac arrest s/p ROSC and initiation of 24 hour therapeutic hypothermia protocol 04/20/20. Pt to be re-warmed today * Discussed at ICU rounds - tight BSG control <150 mg/dL desired for this patient, but not able to use SQ insulin 2nd therapeutic hypothermia. Therefore initiating low-dose insulin drip. Goal is to provide insulin IV (even very low dose) to keep BSG <150 mg/dL, but avoid frequent need to bolus with dextrose. Discussed goal range - selected 90-150 mg/dL. * IV insulin infusion will likely taper off as re-warming occurs and patient status improves. SQ insulin not indicated at this time with therapeutic hypothermia protocol. Will re-eval the need for SQ basal bolus after re- warming occurs. Based on low IV insulin infusion rates (0.4-1unit/hr) Likely can just monitor BSGs q6hrs per protocol once transitioned off of infusion. PLAN FOR INPATIENT GLYCEMIC CONTROL: * Continue IV insulin infusion and titrate per protocol. Likely can stop insulin once BSGs <100 mg/dl sustained with <0.5 units/hr. * Goal Range 90 - 150 mg/dl * In the critical care setting, continuous IV insulin infusion has been shown to be the best method for achieving glycemic targets. * Avoid SQ insulin during therapeutic hypothermia protocol * Monitor BSGs q6hrs after re-warming and IV insulin infusion dc. Initiate SQ basal bolus if needed for BSGs > 180. Initiate SQ bolus insulin monotherapy for BSGs >140 but less than 180 sustained.
--- NOTE | 2020-04-21 09:48 | Cardiology Progress Note ---
Date of Service April 21, 2020 Assessment & Plan (1) Cardiac arrest: Status post [id number] cardiac arrest with uncertain downtime currently completing [facility] protocol with rewarming begun today. Hepatic enzymes trending downward, no tachyarrhythmias, hemodynamically stable Suspect blood pressure will begin to rise as patient aroused. Hopefully Levophed may be weaned We will await assessment of neurologic status. Anticipate repeat echocardiogram to reassess LV systolic function We will hold beta-rafaela due to bradycardia currently but suspect will reinstitute as clinical course progresses. Antiarrhythmic therapy medical or device depending on clinical course, neurologic recovery (2) Ventricular fibrillation: (3) Left bundle branch block: (4) A-fib: (5) On warfarin therapy: (6) AIVR (accelerated idioventricular rhythm): Subjective Patient was seen and examined, chart, medications, telemetry reviewed Patient still on [facility] protocol but rewarming has begun. Currently sedated and ventilated Telemetry reveals sinus bradycardia with marked first-degree AV block, no tachyarrhythmias Review of Systems Review of Systems: Unobtainable due to endotracheal tube Physical Exam Constitutional: Ventilated and sedated, medically paralyzed ENMT: external ear and nose normal, oropharynx normal Endotracheal tube in place Respiratory: Coarse upper airway sounds Cardiovascular: Rate/Rhythm: regular rate and regular rhythm Palpation: normal PMI Vessels: no JVD Extremities: normal capillary refill Gastrointestinal (Abdomen): normal bowel sounds, soft, nontender, no hepatosplenomegaly Neurologic: Unable to assess at this time Results & Data Vital Signs (Past 12 Hours) Vital Signs Temp Temp Temp Pulse Resp BP BP 04/21/20 09:00 33.5 C L 33.3 C L 59 L 16 163/62 H 04/21/20 08:20 16 04/21/20 08:00 33.1 C L 33 C L 59 L 18 154/69 H 04/21/20 07:37 56 L 18 04/21/20 07:00 32.5 C L 32.4 C L 58 L 18 157/63 H 04/21/20 06:24 58 L 98/48 L 04/21/20 06:00 32.1 C L 32.1 C L 57 L 18 163/74 H 04/21/20 05:37 52 L 18 04/21/20 05:00 32.1 C L 32 C L 51 L 18 172/67 H 04/21/20 04:00 32 C L 32.1 C L 52 L 169/71 H 04/21/20 03:30 47 L 04/21/20 03:15 57 L 04/21/20 03:00 32 C L 32 C L 58 L 18 153/66 H 153/66 H 04/21/20 02:57 56 L 18 04/21/20 02:45 58 L 04/21/20 02:30 51 L 04/21/20 02:15 55 L 04/21/20 02:01 56 L 04/21/20 02:00 32 C L 32.1 C L 57 L 18 170/71 H 170/71 H 04/21/20 01:45 51 L 04/21/20 01:30 52 L 04/21/20 01:21 57 L 156/72 H 04/21/20 01:15 56 L 04/21/20 01:01 58 L 04/21/20 01:00 32 C L 32 C L 55 L 18 156/72 H 156/72 H 04/21/20 00:45 51 L 04/21/20 00:37 60 18 04/21/20 00:30 56 L 04/21/20 00:15 64 04/21/20 00:01 58 L 107/51 L 04/21/20 00:00 32.1 C L 32.0 C L 59 L 18 153/71 H 153/71 H 04/20/20 23:45 61 04/20/20 23:30 60 04/20/20 23:15 58 L 04/20/20 23:01 65 04/20/20 23:00 32.1 C L 32.2 C L 62 15 177/88 H 177/88 H 04/20/20 22:45 69 04/20/20 22:30 66 04/20/20 22:15 67 04/20/20 22:01 76 04/20/20 22:00 32.3 C L 32.1 C L 32.3 C L 70 15 165/69 H 173/72 H 04/20/20 21:56 32.3 C L 70 15 102/48 L BP Pulse Ox 04/21/20 09:00 103/46 L 100 04/21/20 08:20 04/21/20 08:00 101/49 L 100 04/21/20 07:37 100 04/21/20 07:00 100/47 L 100 04/21/20 06:24 04/21/20 06:00 100/49 L 100 04/21/20 05:37 100 04/21/20 05:00 93/45 L 100 04/21/20 04:00 101/46 L 04/21/20 03:30 100 04/21/20 03:15 100 04/21/20 03:00 100/48 L 100 04/21/20 02:57 100 04/21/20 02:45 100 04/21/20 02:30 100 04/21/20 02:15 100 04/21/20 02:01 100 04/21/20 02:00 101/49 L 100 04/21/20 01:45 100 04/21/20 01:30 100 04/21/20 01:21 100 04/21/20 01:15 100 04/21/20 01:01 100 04/21/20 01:00 102/50 L 100 04/21/20 00:45 04/21/20 00:37 100 04/21/20 00:30 04/21/20 00:15 100 04/21/20 00:01 04/21/20 00:00 100/48 L 100 04/20/20 23:45 04/20/20 23:30 04/20/20 23:15 04/20/20 23:01 04/20/20 23:00 107/52 L 100 04/20/20 22:45 04/20/20 22:30 04/20/20 22:15 04/20/20 22:01 04/20/20 22:00 100/48 L 04/20/20 21:56 Laboratory Results Laboratory Results - last 24 hr 04/19/20 04/20/20 04/20/20 22:15 10:02 10:07 WBC RBC Hgb POC Hgb Hct POC Hct MCV MCH MCHC RDW Std Deviation RDW Coeff of Charles Plt Count MPV Immature Gran % (Auto) Neut % (Auto) Lymph % (Auto) [place] % (Auto) Eos % (Auto) Baso % (Auto) Immature Gran # (Auto) Neut # (Auto) Lymph # (Auto) [place] # (Auto) Eos # (Auto) Baso # (Auto) PT POC INR 3.0 H INR APTT PTT Ratio Sample Site POC pH POC pCO2 POC pO2 POC HCO3 POC Total CO2 POC Base Excess ABG pH (Temp Correct) ABG pCO2 (Temp Corrct POC ABG pO2 at Pt Temp POC ABG O2 Sat Caleb Test O2 Delivery Device POC O2 Rate Minute Ventilation POC FiO2 Tidal Volume PEEP POC Sodium Sodium POC Potassium Potassium Chloride Carbon Dioxide Anion Gap BUN Creatinine Est Cr Clr Drug Dosing Est GFR ( Amer) Est GFR (Non-Af Amer) BUN/Creatinine Ratio Glucose POC Glucose 139 H POC Glucose (other) 151 H Estimat Average Glucose Hemoglobin A1c Calcium Phosphorus Magnesium Total Bilirubin Direct Bilirubin AST ALT Alkaline Phosphatase Total Protein Albumin Blood Type Antibody Screen 04/20/20 04/20/20 04/20/20 11:55 12:51 12:51 WBC 9.50 RBC 4.48 L Hgb 13.9 L POC Hgb 13.9 L Hct 41.1 L POC Hct 41 L MCV 91.7 MCH 31.0 MCHC 33.8 RDW Std Deviation 46.3 RDW Coeff of Charles 13.9 Plt Count 232 MPV 9.9 Immature Gran % (Auto) 0.1 Neut % (Auto) 81.7 Lymph % (Auto) 9.4 [place] % (Auto) 8.8 Eos % (Auto) 0.0 Baso % (Auto) 0.0 Immature Gran # (Auto) 0.01 Neut # (Auto) 7.76 H Lymph # (Auto) 0.89 L [place] # (Auto) 0.84 H Eos # (Auto) 0.00 Baso # (Auto) 0.00 PT 58.7 H POC INR INR 6.1 H* APTT 47.8 H* PTT Ratio 1.7 Sample Site Art Line POC pH 7.19 L* POC pCO2 51 H POC pO2 165 H POC HCO3 20 POC Total CO2 21 L POC Base Excess -8.0 ABG pH (Temp Correct) 7.258 L ABG pCO2 (Temp Corrct 41 POC ABG pO2 at Pt Temp 140 POC ABG O2 Sat 99.0 H Caleb Test NA O2 Delivery Device Ventilator POC O2 Rate 18 Minute Ventilation 8 POC FiO2 40 Tidal Volume 55 PEEP 5 POC Sodium 141 Sodium POC Potassium 3.7 Potassium Chloride Carbon Dioxide Anion Gap BUN Creatinine Est Cr Clr Drug Dosing Est GFR ( Amer) Est GFR (Non-Af Amer) BUN/Creatinine Ratio Glucose POC Glucose POC Glucose (other) Estimat Average Glucose Hemoglobin A1c Calcium Phosphorus Magnesium Total Bilirubin Direct Bilirubin AST ALT Alkaline Phosphatase Total Protein Albumin Blood Type Antibody Screen 04/20/20 04/20/20 04/20/20 12:51 12:51 12:57 WBC RBC Hgb POC Hgb Hct POC Hct MCV MCH MCHC RDW Std Deviation RDW Coeff of Charles Plt Count MPV Immature Gran % (Auto) Neut % (Auto) Lymph % (Auto) [place] % (Auto) Eos % (Auto) Baso % (Auto) Immature Gran # (Auto) Neut # (Auto) Lymph # (Auto) [place] # (Auto) Eos # (Auto) Baso # (Auto) PT POC INR INR APTT PTT Ratio Sample Site POC pH POC pCO2 POC pO2 POC HCO3 POC Total CO2 POC Base Excess ABG pH (Temp Correct) ABG pCO2 (Temp Corrct POC ABG pO2 at Pt Temp POC ABG O2 Sat Caleb Test O2 Delivery Device POC O2 Rate Minute Ventilation POC FiO2 Tidal Volume PEEP POC Sodium Sodium 143 POC Potassium Potassium 3.9 D Chloride 115 H Carbon Dioxide 20 L Anion Gap 8.0 BUN 21 H Creatinine 0.92 Est Cr Clr Drug Dosing 100.9 Est GFR ( Amer) 100.8 Est GFR (Non-Af Amer) 87.0 BUN/Creatinine Ratio 23.1 H Glucose 113 H POC Glucose POC Glucose (other) 110 H Estimat Average Glucose Hemoglobin A1c Calcium 9.0 D Phosphorus 3.8 D Magnesium 2.0 Total Bilirubin Direct Bilirubin AST ALT Alkaline Phosphatase Total Protein Albumin Blood Type A Positive Antibody Screen NEGATIVE 04/20/20 04/20/20 04/20/20 14:04 15:16 16:03 WBC RBC Hgb POC Hgb Hct POC Hct MCV MCH MCHC RDW Std Deviation RDW Coeff of Charles Plt Count MPV Immature Gran % (Auto) Neut % (Auto) Lymph % (Auto) [place] % (Auto) Eos % (Auto) Baso % (Auto) Immature Gran # (Auto) Neut # (Auto) Lymph # (Auto) [place] # (Auto) Eos # (Auto) Baso # (Auto) PT POC INR INR APTT PTT Ratio Sample Site POC pH POC pCO2 POC pO2 POC HCO3 POC Total CO2 POC Base Excess ABG pH (Temp Correct) ABG pCO2 (Temp Corrct POC ABG pO2 at Pt Temp POC ABG O2 Sat Caleb Test O2 Delivery Device POC O2 Rate Minute Ventilation POC FiO2 Tidal Volume PEEP POC Sodium Sodium POC Potassium Potassium Chloride Carbon Dioxide Anion Gap BUN Creatinine Est Cr Clr Drug Dosing Est GFR ( Amer) Est GFR (Non-Af Amer) BUN/Creatinine Ratio Glucose POC Glucose POC Glucose (other) 96 99 98 Estimat Average Glucose Hemoglobin A1c Calcium Phosphorus Magnesium Total Bilirubin Direct Bilirubin AST ALT Alkaline Phosphatase Total Protein Albumin Blood Type Antibody Screen 04/20/20 04/20/20 04/20/20 16:21 17:07 18:04 WBC RBC Hgb POC Hgb Hct POC Hct MCV MCH MCHC RDW Std Deviation RDW Coeff of Charles Plt Count MPV Immature Gran % (Auto) Neut % (Auto) Lymph % (Auto) [place] % (Auto) Eos % (Auto) Baso % (Auto) Immature Gran # (Auto) Neut # (Auto) Lymph # (Auto) [place] # (Auto) Eos # (Auto) Baso # (Auto) PT POC INR INR APTT PTT Ratio Sample Site Art Line POC pH 7.34 L POC pCO2 36 POC pO2 136 H POC HCO3 19 POC Total CO2 20 L POC Base Excess -6.0 ABG pH (Temp Correct) ABG pCO2 (Temp Corrct POC ABG pO2 at Pt Temp POC ABG O2 Sat 99.0 H Caleb Test NA O2 Delivery Device Ventilator POC O2 Rate 18 Minute Ventilation 9.9 POC FiO2 30 Tidal Volume 550 PEEP 5 POC Sodium Sodium POC Potassium Potassium Chloride Carbon Dioxide Anion Gap BUN Creatinine Est Cr Clr Drug Dosing Est GFR ( Amer) Est GFR (Non-Af Amer) BUN/Creatinine Ratio Glucose POC Glucose POC Glucose (other) 113 H 115 H Estimat Average Glucose Hemoglobin A1c Calcium Phosphorus Magnesium Total Bilirubin Direct Bilirubin AST ALT Alkaline Phosphatase Total Protein Albumin Blood Type Antibody Screen 04/20/20 04/20/20 04/20/20 19:03 19:03 19:03 WBC 10.23 RBC 4.28 L Hgb 13.4 L POC Hgb Hct 39.4 L POC Hct MCV 92.1 MCH 31.3 MCHC 34.0 RDW Std Deviation 47.2 H RDW Coeff of Charles 14.0 Plt Count 237 MPV 9.9 Immature Gran % (Auto) 0.2 Neut % (Auto) 68.9 Lymph % (Auto) 17.0 [place] % (Auto) 13.7 Eos % (Auto) 0.1 Baso % (Auto) 0.1 Immature Gran # (Auto) 0.02 Neut # (Auto) 7.05 H Lymph # (Auto) 1.74 [place] # (Auto) 1.40 H Eos # (Auto) 0.01 Baso # (Auto) 0.01 PT 37.9 H POC INR INR 3.9 H APTT 43.8 H PTT Ratio 1.6 Sample Site POC pH POC pCO2 POC pO2 POC HCO3 POC Total CO2 POC Base Excess ABG pH (Temp Correct) ABG pCO2 (Temp Corrct POC ABG pO2 at Pt Temp POC ABG O2 Sat Caleb Test O2 Delivery Device POC O2 Rate Minute Ventilation POC FiO2 Tidal Volume PEEP POC Sodium Sodium 142 POC Potassium Potassium 2.8 L D Chloride 113 H Carbon Dioxide 22 Anion Gap 7.0 BUN 20 H Creatinine 0.83 Est Cr Clr Drug Dosing 111.8 Est GFR ( Amer) 107.0 Est GFR (Non-Af Amer) 92.3 BUN/Creatinine Ratio 24.3 H Glucose 126 H POC Glucose POC Glucose (other) Estimat Average Glucose Hemoglobin A1c Calcium 8.0 L Phosphorus 2.6 D Magnesium 2.2 Total Bilirubin Direct Bilirubin AST ALT Alkaline Phosphatase Total Protein Albumin Blood Type Antibody Screen 04/20/20 04/20/20 04/20/20 19:22 20:05 20:11 WBC RBC Hgb POC Hgb Hct POC Hct MCV MCH MCHC RDW Std Deviation RDW Coeff of Charles Plt Count MPV Immature Gran % (Auto) Neut % (Auto) Lymph % (Auto) [place] % (Auto) Eos % (Auto) Baso % (Auto) Immature Gran # (Auto) Neut # (Auto) Lymph # (Auto) [place] # (Auto) Eos # (Auto) Baso # (Auto) PT POC INR INR APTT PTT Ratio Sample Site Art Line POC pH 7.21 L POC pCO2 52 H POC pO2 124 H POC HCO3 21 POC Total CO2 22 L POC Base Excess -7.0 ABG pH (Temp Correct) ABG pCO2 (Temp Corrct POC ABG pO2 at Pt Temp POC ABG O2 Sat 98.0 H Caleb Test NA O2 Delivery Device Ventilator POC O2 Rate 18 Minute Ventilation 9 POC FiO2 30 Tidal Volume 550 PEEP 5 POC Sodium Sodium POC Potassium Potassium Chloride Carbon Dioxide Anion Gap BUN Creatinine Est Cr Clr Drug Dosing Est GFR ( Amer) Est GFR (Non-Af Amer) BUN/Creatinine Ratio Glucose POC Glucose POC Glucose (other) 131 H 148 H Estimat Average Glucose Hemoglobin A1c Calcium Phosphorus Magnesium Total Bilirubin Direct Bilirubin AST ALT Alkaline Phosphatase Total Protein Albumin Blood Type Antibody Screen 04/20/20 04/20/20 04/20/20 21:10 22:00 23:08 WBC RBC Hgb POC Hgb Hct POC Hct MCV MCH MCHC RDW Std Deviation RDW Coeff of Charles Plt Count MPV Immature Gran % (Auto) Neut % (Auto) Lymph % (Auto) [place] % (Auto) Eos % (Auto) Baso % (Auto) Immature Gran # (Auto) Neut # (Auto) Lymph # (Auto) [place] # (Auto) Eos # (Auto) Baso # (Auto) PT POC INR INR APTT PTT Ratio Sample Site POC pH POC pCO2 POC pO2 POC HCO3 POC Total CO2 POC Base Excess ABG pH (Temp Correct) ABG pCO2 (Temp Corrct POC ABG pO2 at Pt Temp POC ABG O2 Sat Caleb Test O2 Delivery Device POC O2 Rate Minute Ventilation POC FiO2 Tidal Volume PEEP POC Sodium Sodium POC Potassium Potassium Chloride Carbon Dioxide Anion Gap BUN Creatinine Est Cr Clr Drug Dosing Est GFR ( Amer) Est GFR (Non-Af Amer) BUN/Creatinine Ratio Glucose POC Glucose POC Glucose (other) 165 H 168 H 164 H Estimat Average Glucose Hemoglobin A1c Calcium Phosphorus Magnesium Total Bilirubin Direct Bilirubin AST ALT Alkaline Phosphatase Total Protein Albumin Blood Type Antibody Screen 04/21/20 04/21/20 04/21/20 00:11 00:29 01:05 WBC RBC Hgb POC Hgb Hct POC Hct MCV MCH MCHC RDW Std Deviation RDW Coeff of Charles Plt Count MPV Immature Gran % (Auto) Neut % (Auto) Lymph % (Auto) [place] % (Auto) Eos % (Auto) Baso % (Auto) Immature Gran # (Auto) Neut # (Auto) Lymph # (Auto) [place] # (Auto) Eos # (Auto) Baso # (Auto) PT POC INR INR APTT PTT Ratio Sample Site Art Line POC pH 7.23 L POC pCO2 48 H POC pO2 142 H POC HCO3 20 POC Total CO2 21 L POC Base Excess -8.0 ABG pH (Temp Correct) ABG pCO2 (Temp Corrct POC ABG pO2 at Pt Temp POC ABG O2 Sat 99.0 H Caleb Test NA O2 Delivery Device Ventilator POC O2 Rate 18 Minute Ventilation 9.8 POC FiO2 30 Tidal Volume 550 PEEP 5 POC Sodium Sodium POC Potassium Potassium Chloride Carbon Dioxide Anion Gap BUN Creatinine Est Cr Clr Drug Dosing Est GFR ( Amer) Est GFR (Non-Af Amer) BUN/Creatinine Ratio Glucose POC Glucose POC Glucose (other) 156 H Estimat Average Glucose Hemoglobin A1c Calcium Phosphorus Magnesium Total Bilirubin 0.4 Direct Bilirubin 0.2 AST 225 H ALT 406 H Alkaline Phosphatase 41 L Total Protein 6.1 L Albumin 3.2 L Blood Type Antibody Screen 04/21/20 04/21/20 04/21/20 01:05 01:05 01:05 WBC 12.13 H RBC 4.08 L Hgb 12.9 L POC Hgb Hct 37.7 L POC Hct MCV 92.4 MCH 31.6 MCHC 34.2 RDW Std Deviation 47.4 H RDW Coeff of Charles 14.1 Plt Count 228 MPV 9.8 Immature Gran % (Auto) 0.2 Neut % (Auto) 81.3 Lymph % (Auto) 8.7 [place] % (Auto) 9.7 Eos % (Auto) 0.0 Baso % (Auto) 0.1 Immature Gran # (Auto) 0.02 Neut # (Auto) 9.86 H Lymph # (Auto) 1.06 L [place] # (Auto) 1.18 H Eos # (Auto) 0.00 Baso # (Auto) 0.01 PT 30.8 H POC INR INR 3.1 H APTT 43.0 H PTT Ratio 1.5 Sample Site POC pH POC pCO2 POC pO2 POC HCO3 POC Total CO2 POC Base Excess ABG pH (Temp Correct) ABG pCO2 (Temp Corrct POC ABG pO2 at Pt Temp POC ABG O2 Sat Caleb Test O2 Delivery Device POC O2 Rate Minute Ventilation POC FiO2 Tidal Volume PEEP POC Sodium Sodium POC Potassium Potassium Chloride Carbon Dioxide Anion Gap BUN Creatinine Est Cr Clr Drug Dosing Est GFR ( Amer) Est GFR (Non-Af Amer) BUN/Creatinine Ratio Glucose POC Glucose POC Glucose (other) Estimat Average Glucose 114 Hemoglobin A1c 5.6 Calcium Phosphorus Magnesium Total Bilirubin Direct Bilirubin AST ALT Alkaline Phosphatase Total Protein Albumin Blood Type Antibody Screen 04/21/20 04/21/20 04/21/20 01:05 01:09 02:20 WBC RBC Hgb POC Hgb Hct POC Hct MCV MCH MCHC RDW Std Deviation RDW Coeff of Charles Plt Count MPV Immature Gran % (Auto) Neut % (Auto) Lymph % (Auto) [place] % (Auto) Eos % (Auto) Baso % (Auto) Immature Gran # (Auto) Neut # (Auto) Lymph # (Auto) [place] # (Auto) Eos # (Auto) Baso # (Auto) PT POC INR INR APTT PTT Ratio Sample Site POC pH POC pCO2 POC pO2 POC HCO3 POC Total CO2 POC Base Excess ABG pH (Temp Correct) ABG pCO2 (Temp Corrct POC ABG pO2 at Pt Temp POC ABG O2 Sat Caleb Test O2 Delivery Device POC O2 Rate Minute Ventilation POC FiO2 Tidal Volume PEEP POC Sodium Sodium 144 POC Potassium Potassium 3.6 D Chloride 112 H Carbon Dioxide 19 L Anion Gap 13.0 H BUN 18 Creatinine 1.04 Est Cr Clr Drug Dosing 89.2 Est GFR ( Amer) 86.9 Est GFR (Non-Af Amer) 75.0 BUN/Creatinine Ratio 16.9 Glucose 162 H POC Glucose POC Glucose (other) 162 H 171 H Estimat Average Glucose Hemoglobin A1c Calcium 7.5 L Phosphorus 3.5 Magnesium 2.0 Total Bilirubin Direct Bilirubin AST ALT Alkaline Phosphatase Total Protein Albumin Blood Type Antibody Screen 04/21/20 04/21/20 04/21/20 03:20 04:03 04:10 WBC RBC Hgb POC Hgb Hct POC Hct MCV MCH MCHC RDW Std Deviation RDW Coeff of Charles Plt Count MPV Immature Gran % (Auto) Neut % (Auto) Lymph % (Auto) [place] % (Auto) Eos % (Auto) Baso % (Auto) Immature Gran # (Auto) Neut # (Auto) Lymph # (Auto) [place] # (Auto) Eos # (Auto) Baso # (Auto) PT POC INR INR APTT PTT Ratio Sample Site Art Line POC pH 7.23 L POC pCO2 42 POC pO2 145 H POC HCO3 18 L POC Total CO2 19 L POC Base Excess -10.0 L ABG pH (Temp Correct) ABG pCO2 (Temp Corrct POC ABG pO2 at Pt Temp POC ABG O2 Sat 99.0 H Caleb Test NA O2 Delivery Device Ventilator POC O2 Rate 18 Minute Ventilation 10 POC FiO2 30 Tidal Volume 550 PEEP 5 POC Sodium Sodium POC Potassium Potassium Chloride Carbon Dioxide Anion Gap BUN Creatinine Est Cr Clr Drug Dosing Est GFR ( Amer) Est GFR (Non-Af Amer) BUN/Creatinine Ratio Glucose POC Glucose POC Glucose (other) 175 H 177 H Estimat Average Glucose Hemoglobin A1c Calcium Phosphorus Magnesium Total Bilirubin Direct Bilirubin AST ALT Alkaline Phosphatase Total Protein Albumin Blood Type Antibody Screen 04/21/20 04/21/20 04/21/20 05:17 06:07 06:49 WBC 11.22 H RBC 4.14 L Hgb 12.9 L POC Hgb Hct 39.1 L POC Hct MCV 94.4 MCH 31.2 MCHC 33.0 RDW Std Deviation 49.0 H RDW Coeff of Charles 14.4 Plt Count 224 MPV 10.2 Immature Gran % (Auto) 0.1 Neut % (Auto) 78.9 Lymph % (Auto) 11.5 [place] % (Auto) 9.4 Eos % (Auto) 0.1 Baso % (Auto) 0.0 Immature Gran # (Auto) 0.01 Neut # (Auto) 8.85 H Lymph # (Auto) 1.29 [place] # (Auto) 1.06 H Eos # (Auto) 0.01 Baso # (Auto) 0.00 PT POC INR INR APTT PTT Ratio Sample Site POC pH POC pCO2 POC pO2 POC HCO3 POC Total CO2 POC Base Excess ABG pH (Temp Correct) ABG pCO2 (Temp Corrct POC ABG pO2 at Pt Temp POC ABG O2 Sat Caleb Test O2 Delivery Device POC O2 Rate Minute Ventilation POC FiO2 Tidal Volume PEEP POC Sodium Sodium POC Potassium Potassium Chloride Carbon Dioxide Anion Gap BUN Creatinine Est Cr Clr Drug Dosing Est GFR ( Amer) Est GFR (Non-Af Amer) BUN/Creatinine Ratio Glucose POC Glucose POC Glucose (other) 176 H 172 H Estimat Average Glucose Hemoglobin A1c Calcium Phosphorus Magnesium Total Bilirubin Direct Bilirubin AST ALT Alkaline Phosphatase Total Protein Albumin Blood Type Antibody Screen 04/21/20 04/21/20 04/21/20 06:49 06:49 06:56 WBC RBC Hgb POC Hgb Hct POC Hct MCV MCH MCHC RDW Std Deviation RDW Coeff of Charles Plt Count MPV Immature Gran % (Auto) Neut % (Auto) Lymph % (Auto) [place] % (Auto) Eos % (Auto) Baso % (Auto) Immature Gran # (Auto) Neut # (Auto) Lymph # (Auto) [place] # (Auto) Eos # (Auto) Baso # (Auto) PT 37.8 H POC INR INR 3.9 H APTT 45.9 H* PTT Ratio 1.6 Sample Site POC pH POC pCO2 POC pO2 POC HCO3 POC Total CO2 POC Base Excess ABG pH (Temp Correct) ABG pCO2 (Temp Corrct POC ABG pO2 at Pt Temp POC ABG O2 Sat Caleb Test O2 Delivery Device POC O2 Rate Minute Ventilation POC FiO2 Tidal Volume PEEP POC Sodium Sodium 141 POC Potassium Potassium 3.6 Chloride 111 H Carbon Dioxide 18 L Anion Gap 12.0 H BUN 16 Creatinine 1.07 Est Cr Clr Drug Dosing 86.7 Est GFR ( Amer) 84.0 Est GFR (Non-Af Amer) 72.5 BUN/Creatinine Ratio 15.0 Glucose 166 H POC Glucose POC Glucose (other) 170 H Estimat Average Glucose Hemoglobin A1c Calcium 7.7 L Phosphorus 2.9 Magnesium 2.1 Total Bilirubin Direct Bilirubin AST ALT Alkaline Phosphatase Total Protein Albumin Blood Type Antibody Screen 04/21/20 04/21/20 04/21/20 08:02 08:09 09:05 WBC RBC Hgb POC Hgb Hct POC Hct MCV MCH MCHC RDW Std Deviation RDW Coeff of Charles Plt Count MPV Immature Gran % (Auto) Neut % (Auto) Lymph % (Auto) [place] % (Auto) Eos % (Auto) Baso % (Auto) Immature Gran # (Auto) Neut # (Auto) Lymph # (Auto) [place] # (Auto) Eos # (Auto) Baso # (Auto) PT POC INR INR APTT PTT Ratio Sample Site Art Line POC pH 7.26 L POC pCO2 42 POC pO2 135 H POC HCO3 19 POC Total CO2 20 L POC Base Excess -8.0 ABG pH (Temp Correct) ABG pCO2 (Temp Corrct POC ABG pO2 at Pt Temp POC ABG O2 Sat 99.0 H Caleb Test NA O2 Delivery Device Ventilator POC O2 Rate 18 Minute Ventilation 9.9 POC FiO2 30 Tidal Volume 550 PEEP 5 POC Sodium Sodium POC Potassium Potassium Chloride Carbon Dioxide Anion Gap BUN Creatinine Est Cr Clr Drug Dosing Est GFR ( Amer) Est GFR (Non-Af Amer) BUN/Creatinine Ratio Glucose POC Glucose POC Glucose (other) 166 H 161 H Estimat Average Glucose Hemoglobin A1c Calcium Phosphorus Magnesium Total Bilirubin Direct Bilirubin AST ALT Alkaline Phosphatase Total Protein Albumin Blood Type Antibody Screen
--- NOTE | 2020-04-21 10:31 | Critical Care Progress Note ---
Date of Service April 21, 2020 Assessment & Plan (1) Cardiac arrest: Impression: 65-year-old male with out of hospital witnessed V. fib arrest of unclear etiology. He underwent cardiac catheterization which showed no coronary lesions and has been initiated on hypothermia for neuro protection. His estimated downtime was between 7 and 30 minutes although again as this event occurred during sleep is unclear when his actual arrhythmia initiated. He presented with lactic acidosis and mild transaminitis which are all improving. 24-hour events: Patient has completed 24 hours of therapeutic hypothermia and is currently in the rewarming process. He did have some issues with bradycardia overnight. He received intermittent atropine and then was started on an epinephrine infusion. Bradycardia resolved this morning. Insulin infusion was initiated for hyperglycemia. Small adjustments in ventilator made. Remains deeply sedated and intubated Recommendations: 1. Neurologic: There was some report of posturing and questionable seizure activity on presentation. Complete rewarming process, targeted to be finished by late this afternoon. Will initiate weaning fentanyl and propofol. Patient at risk for anoxic encephalopathy. Will reassess as he is rewarmed and medications were discontinued. If there continue to be neurological deficits, may need neurology input, EEG, and MRI scans. 2. Cardiovascular: Status post cardiac arrest. Echo shows depressed EF. History of A. fib. Unclear if the reduced EF is related to his current cardiac arrest or potential undiagnosed cardiomyopathy. He developed some bradycardia during the hypothermia necessitating epinephrine infusion and intermittent atropine. It is better with warming. We will discontinue the norepinephrine and continue on epinephrine for now with hopes that this can be weaned to off as the patient rewarmed. Appreciate cardiology assistance. Amiodarone now off. No evidence of recurrent arrhythmia. Will need assessment for defibrillator if neurological status returns to normal. 3. Pulmonary: Patient was intubated due to cardiac arrest. Additional adjustments in respiratory rate and tidal volume to maintain PCO2 between 35 and 42. 4. GI: Mild transaminitis on presentation possibly secondary to shock liver. Numbers are improving. Continue to follow for now. Keep n.p.o. pending resolution of hypothermia protocol. 5. ID: Patient is currently day # 3 antibiotics, currently Unasyn for potential aspiration pneumonia as well as urinary tract infection although his urinalysis does appear more consistent with a contaminated specimen given the high number of epithelial cells. Culture showed no growth to date. Procalcitonin negative. If cultures remain negative next 24 hours, antibiotics may be able to be discontinued. 6. Endocrine: Continue insulin infusion. No prior history of diabetes. May be stress response. 7. Renal: Patient presented with serum creatinine of 1.8 now down to 1 0.07 . Suspect hypoperfusion and possible ATN. We will continue to monitor for now. Mild metabolic acidosis, received 1 amp bicarb this morning. Lactate is normalized. 8. Heme-onc: Elevated INR secondary to Coumadin and potential shock liver. No signs of bleeding currently. We will continue to monitor INR and allow to drift down. If there is signs of bleeding, will administer FFP. Patient is critically ill with significant potential for loss of life and function. Updated via telephone. Discussed with ICU critical care nurse on bedside rounds. A total of 41 minutes critical care time evaluating managing and stabilizing patient. (2) A-fib: (3) On warfarin therapy: Admission and Anticipated Discharge Date Admission Date: April 19, 2020 Review of Systems Review of Systems: Unobtainable due to endotracheal tube and Unobtainable due to reduced consciousness Physical Exam Constitutional: + mechanically ventilated Intubated and sedated Eyes: Pupils small bilaterally. Neck: trachea midline, no thyromegaly Respiratory: normal respiratory effort, lungs clear to auscultation Cardiovascular: RRR, no murmur, no edema Gastrointestinal (Abdomen): normal bowel sounds, soft, nontender, no hepatosplenomegaly Musculoskeletal: Extremities: extremities normal to inspection Skin: no rashes, warm and dry Neurologic: Intubated and sedated. No withdrawal from painful stimulus. Pupils minimally reactive. Corneal reflexes absent currently but likely secondary to large doses of sedatives. Lymphatic: no cervical lymphadenopathy Results & Data Results & Data ([facility]) Vital Signs (Past 12 Hours) Vital Signs Temp Temp Pulse Resp BP BP BP 04/21/20 09:00 33.5 C L 33.3 C L 59 L 16 163/62 H 103/46 L 04/21/20 08:20 16 04/21/20 08:00 33.1 C L 33 C L 59 L 18 154/69 H 101/49 L 04/21/20 07:37 56 L 18 04/21/20 07:00 32.5 C L 32.4 C L 58 L 18 157/63 H 100/47 L 04/21/20 06:24 58 L 98/48 L 04/21/20 06:00 32.1 C L 32.1 C L 57 L 18 163/74 H 100/49 L 04/21/20 05:37 52 L 18 04/21/20 05:00 32.1 C L 32 C L 51 L 18 172/67 H 93/45 L 04/21/20 04:00 32 C L 32.1 C L 52 L 169/71 H 101/46 L 04/21/20 03:30 47 L 04/21/20 03:15 57 L 04/21/20 03:00 32 C L 32 C L 58 L 18 153/66 H 153/66 H 100/48 L 04/21/20 02:57 56 L 18 04/21/20 02:45 58 L 04/21/20 02:30 51 L 04/21/20 02:15 55 L 04/21/20 02:01 56 L 04/21/20 02:00 32 C L 32.1 C L 57 L 18 170/71 H 170/71 H 101/49 L 04/21/20 01:45 51 L 04/21/20 01:30 52 L 04/21/20 01:21 57 L 156/72 H 04/21/20 01:15 56 L 04/21/20 01:01 58 L 04/21/20 01:00 32 C L 32 C L 55 L 18 156/72 H 156/72 H 102/50 L 04/21/20 00:45 51 L 04/21/20 00:37 60 18 04/21/20 00:30 56 L 04/21/20 00:15 64 04/21/20 00:01 58 L 107/51 L 04/21/20 00:00 32.1 C L 32.0 C L 59 L 18 153/71 H 153/71 H 100/48 L 04/20/20 23:45 61 04/20/20 23:30 60 04/20/20 23:15 58 L 04/20/20 23:01 65 04/20/20 23:00 32.1 C L 32.2 C L 62 15 177/88 H 177/88 H 107/52 L 04/20/20 22:45 69 04/20/20 22:30 66 Pulse Ox 04/21/20 09:00 100 04/21/20 08:20 04/21/20 08:00 100 06/06/20 07:37 04/21/20 07:00 04/21/20 06:24 04/21/20 06:00 04/21/20 05:37 04/21/20 05:00 04/21/20 04:00 04/21/20 03:30 04/21/20 03:15 04/21/20 03:00 04/21/20 02:57 04/21/20 02:45 04/21/20 02:30 04/21/20 02:15 04/21/20 02:01 04/21/20 02:00 04/21/20 01:45 04/21/20 01:30 04/21/20 01:21 04/21/20 01:15 04/21/20 01:01 04/21/20 01:00 04/21/20 00:45 04/21/20 00:37 04/21/20 00:30 04/21/20 00:15 04/21/20 00:01 04/21/20 00:00 04/20/20 23:45 04/20/20 23:30 04/20/20 23:15 04/20/20 23:01 04/20/20 23:00 04/20/20 22:45 04/20/20 22:30 Laboratory Results 04/21/20 06:49 04/21/20 06:49 Calcium 7.7 AST down to 225 and ALT down to 406 Albumin 3.2 Blood gas uncontrolled for temperature showed a pH 7-6 with a PCO2 of 42 and a PO2 of 135. Cultures no growth to date INR 3.9 Diagnostic Findings Chest x-ray from today was independently reviewed and compared to prior films. Endotracheal tube is approximately 7 cm above the jasbir. Lungs are relatively well aerated without focal opacity. Orogastric tube in good position. Coding Level of Care Code Critical Care 1st 30-74 mins Diagnoses Cardiac arrest I46.9 A-fib I48.91 On warfarin therapy Z79.01 Time Spent (min) 41
[2020-04-21] MEDS: INSULIN REGULAR 250 UNITS in SODIUM CHLORIDE 0.9% 247.5 ML IV SCH (11:22)
[2020-04-21] MEDS: MEPERIDINE HCL 25 MG/ML CARP/VIAL IV PRN ×2 (11:52→16:09)
[2020-04-21 12:08] LABS: iSTAT Arterial Blood Gas HCO3 23 meg/L (19-24); iSTAT Arterial Blood Gas pCO2 52 mmHg (35-46); iSTAT Arterial Blood Gas pH 7.26 (7.35-7.45); iSTAT Arterial Blood Gas pO2 131 mmHg (80-95); iSTAT Carbon Dioxide 25 mmol/L (24-31); iSTAT FiO2 30 %; iSTAT Site Art Line
[2020-04-21 12:58] LABS: Basophils # (auto) 0.01 K/uL (0-0.2); Basophils % (auto) 0.1 %; Eosinophils # (auto) 0.03 K/uL (0-0.5); Eosinophils % (auto) 0.4 %; Hemoglobin 12.2 g/dL (14.0-18.0); Immature Granulocytes # (auto) 0.01 K/uL (0.00-0.02); Immature Granulocytes % (auto) 0.1 %; Lymphocytes # (auto) 0.82 K/uL (1.2-3.4); Lymphocytes % (auto) 12.1 %; Mean Corpuscular Hemoglobin 30.6 pg (25-34); Mean Corpuscular Volume 92.7 fL (80-100); Mean Platelet Volume 9.9 fL (7.4-10.4); Monocytes # (auto) 0.74 K/uL (0.11-0.59); Monocytes % (auto) 10.9 %; Neutrophils # (auto) 5.19 K/uL (1.4-6.5); Neutrophils % (auto) 76.4 %; Platelet Count 211 K/uL (130-400); RDW Coefficient of Variation 14.4 % (11.5-14.5); RDW Standard Deviation 48.8 fL (36.4-46.3); Red Blood Count 3.99 M/uL (4.7-6.1)
[2020-04-21 13:23] LABS: BUN Creatinine Ratio 17.1 (10-20); Calcium 7.7 mg/dl (8.5-10.1); Est GFR (African American) 102.1; Est GFR (Non-African American) 88.1; INR 4.1 (0.9-1.1); Partial Thromboplastin Ratio 1.7; Phosphorus 2.7 mg/dl (2.5-4.9); Potassium 3.8 mmol/L (3.5-5.1); Prothrombin Time 40.2 Seconds (9.0-12.0)
[2020-04-21 13:39] LABS: Partial Thromboplastin Time 46.8 Seconds (21.0-31.0)
--- NOTE | 2020-04-21 16:55 | Hospitalist Progress Note ---
Date of Service April 21, 2020 Assessment & Plan (1) Cardiac arrest: S/P cardiac arrest unknown etiology Successful CPR with return of spontaneous circulation post defibrillation. Intubated/sedated on Francisco support Rewarming phase of the hypothermia protocol Initial V. fib rhythm as per report S/P cardiac cath showed no significant blockage Continue monitor in the ICU Ventricular Fibrillation Afib ECHO showed ejection fraction of 20 to 25% Amiodarone on hold due to bradycardia Coumadin on hold Cardiology on board Consider biventricular ICD implantation once stable by electrophysiology Will hold beta rafaela as per cardio due to bradycardia CRYSTAL Mostly due to hypovolemia due to cardiac arrest Creatinine on admission 1.8 Creatinine normalized 0.9 today Hypotension Continue Levophed drip Plan to wean off levophed Continue monitor BP Transaminitis ALT and ALT 698 and 569 respectively on admission Liver enzymes continue to trend down with AST 225 and ALT 406 Continue monitor LFTs. Hyperglycemia Hba1c 5.6 on 04/20/20 Continue insulin drip ICU protocol Questionable R Upper Lobe Infiltrate possible related to aspiration lactic acid elevated on admission WBC and procalcitonin normal and afebrile Continue unasyn for now Elevated Lactate Mostly related to the cardiac arrest Lactate on admission 5.2 Procalcitonin and WBC WNL Lactate normalized Supratherapeutic INR Coumadin peaked to 6.1 Coumadin on hold INR 4.1 today DVT px INR 4.1 today CODE status Full code Disposition Rewarming phase of the hypothermia protocol Admission and Anticipated Discharge Date Admission Date: April 19, 2020 Subjective Pt was seen and examined Sedated, intubated on vent support On the rewarming phase of the hypothermia protocol Physical Exam Physical Exam: General- sedated Head- atraumatic ENT- Intubated Neck- supple, no JVD Lungs- Mech Ventilation Heart- no murmur Abdomen- normal bowel sounds, soft, nontender Extremities- no calf tenderness Neuro- sedated Skin- warm & dry Results & Data Results & Data ([facility]) Vital Signs (Past 12 Hours) Vital Signs Temp Temp Pulse Resp BP BP BP 04/21/20 16:00 36.8 C 36.4 C L 96 H 16 168/75 H 101/37 L 04/21/20 15:00 36.1 C L 35.9 C L 85 16 175/76 H 110/45 L 04/21/20 14:00 35.6 C L 35.3 C L 80 16 167/78 H 106/49 L 04/21/20 13:44 72 16 04/21/20 13:00 34.9 C L 34.7 C L 67 16 137/77 99/44 L 04/21/20 12:00 34.3 C L 34.3 C L 74 16 152/64 H 95/44 L 04/21/20 11:35 81 16 04/21/20 11:00 34.6 C L 34.4 C L 69 16 167/59 H 95/45 L 04/21/20 10:00 34.1 C L 33.9 C L 63 16 170/69 H 107/48 L 04/21/20 09:00 33.5 C L 33.3 C L 59 L 16 163/62 H 103/46 L 04/21/20 08:20 16 04/21/20 08:00 33.1 C L 33 C L 59 L 18 154/69 H 101/49 L 04/21/20 07:37 56 L 18 04/21/20 07:00 32.5 C L 32.4 C L 58 L 18 157/63 H 100/47 L 04/21/20 06:24 58 L 98/48 L 04/21/20 06:00 32.1 C L 32.1 C L 57 L 18 163/74 H 100/49 L 04/21/20 05:37 52 L 18 04/21/20 05:00 32.1 C L 32 C L 51 L 18 172/67 H 93/45 L Pulse Ox 04/21/20 16:00 100 04/21/20 15:00 100 04/21/20 14:00 100 04/21/20 13:44 100 04/21/20 13:00 100 04/21/20 12:00 100 04/21/20 11:35 100 04/21/20 11:00 100 04/21/20 10:00 100 04/21/20 09:00 100 04/21/20 08:20 04/21/20 08:00 100 04/21/20 07:37 100 04/21/20 07:00 100 04/21/20 06:24 04/21/20 06:00 100 04/21/20 05:37 100 04/21/20 05:00 100
[2020-04-21 19:39] LABS: Eosinophils # (auto) 0.01 K/uL (0-0.5); Eosinophils % (auto) 0.1 %; Hemoglobin 12.2 g/dL (14.0-18.0); Immature Granulocytes # (auto) 0.01 K/uL (0.00-0.02); Immature Granulocytes % (auto) 0.1 %; Lymphocytes # (auto) 0.61 K/uL (1.2-3.4); Lymphocytes % (auto) 8.6 %; Mean Corpuscular Hemoglobin 31.2 pg (25-34); Mean Corpuscular Volume 94.6 fL (80-100); Mean Platelet Volume 10.2 fL (7.4-10.4); Monocytes # (auto) 0.81 K/uL (0.11-0.59); Monocytes % (auto) 11.4 %; Neutrophils # (auto) 5.66 K/uL (1.4-6.5); Neutrophils % (auto) 79.8 %; Platelet Count 206 K/uL (130-400); RDW Coefficient of Variation 14.9 % (11.5-14.5); Red Blood Count 3.91 M/uL (4.7-6.1)
[2020-04-21 19:56] LABS: Calcium 7.5 mg/dl (8.5-10.1); Creatinine Clr Calc Pharmacy 110.5 ml/min; Est GFR (African American) 106.5; Est GFR (Non-African American) 91.9; Magnesium 1.9 mg/dl (1.8-2.4); Potassium 4.7 mmol/L (3.5-5.1)
[2020-04-21 19:59] LABS: INR 3.9 (0.9-1.1); Partial Thromboplastin Ratio 1.8; Prothrombin Time 38.4 Seconds (9.0-12.0)
[2020-04-21 20:07] LABS: Partial Thromboplastin Time 50.1 Seconds (21.0-31.0)
--- NOTE | 2020-04-21 22:06 | Electrocardiogram Report ---
Test Reason : Blood Pressure : / mmHG Vent. Rate : 055 BPM Atrial Rate : 053 BPM P-R Int : 000 ms QRS Dur : 170 ms QT Int : 616 ms P-R-T Axes : 000 -22 -36 degrees QTc Int : 589 ms Atrial fibrillation with slow ventricular response Left bundle branch block Abnormal ECG When compared with ECG of 21-APR-2020 02:07, No significant change was found Confirmed by Carlos Gamez ([id number]) on 04/21/2020 10:06:12 PM Referred By: REFERRED SELF Confirmed By:Carlos Gamez
[2020-04-21] MEDS: ACETAMINOPHEN 65 ML IV PRN (22:16)
--- NOTE | 2020-04-21 22:58 | Electrocardiogram Report ---
Test Reason : Blood Pressure : / mmHG Vent. Rate : 063 BPM Atrial Rate : 060 BPM P-R Int : 000 ms QRS Dur : 154 ms QT Int : 500 ms P-R-T Axes : 000 -26 -63 degrees QTc Int : 511 ms Atrial fibrillation Left bundle branch block Abnormal ECG When compared with ECG of 21-APR-2020 06:10, No significant change Confirmed by Carlos Gamez ([id number]) on 04/21/2020 10:58:28 PM Referred By: REFERRED SELF Confirmed By:Carlos Gamez
--- NOTE | 2020-04-21 23:06 | Electrocardiogram Report ---
Test Reason : Blood Pressure : / mmHG Vent. Rate : 072 BPM Atrial Rate : 062 BPM P-R Int : 000 ms QRS Dur : 148 ms QT Int : 464 ms P-R-T Axes : 000 -33 -45 degrees QTc Int : 508 ms Atrial fibrillation Left axis deviation Left bundle branch block Abnormal ECG When compared with ECG of 21-APR-2020 09:09, No significant change was found Confirmed by Carlos Gamez ([id number]) on 04/21/2020 11:06:22 PM Referred By: REFERRED SELF Confirmed By:Carlos Gamez
[2020-04-22] MEDS: NORMOSOL-R 1,000 ML IV SCH (00:21)
[2020-04-22 01:04] LABS: Eosinophils # (auto) 0.01 K/uL (0-0.5); Eosinophils % (auto) 0.1 %; Hematocrit (blood only) 36.2 % (42-52); Hemoglobin 11.9 g/dL (14.0-18.0); Immature Granulocytes # (auto) 0.01 K/uL (0.00-0.02); Immature Granulocytes % (auto) 0.1 %; Lymphocytes # (auto) 0.43 K/uL (1.2-3.4); Lymphocytes % (auto) 6.1 %; Mean Corpuscular Hemoglobin 30.8 pg (25-34); Mean Corpuscular Hgb Conc 32.9 g/dL (32-36); Mean Corpuscular Volume 93.8 fL (80-100); Mean Platelet Volume 10.2 fL (7.4-10.4); Monocytes # (auto) 0.61 K/uL (0.11-0.59); Monocytes % (auto) 8.7 %; Neutrophils # (auto) 5.94 K/uL (1.4-6.5); Platelet Count 193 K/uL (130-400); RDW Coefficient of Variation 15.1 % (11.5-14.5); RDW Standard Deviation 51.2 fL (36.4-46.3); Red Blood Count 3.86 M/uL (4.7-6.1)
[2020-04-22 01:21] LABS: Albumin Level 2.7 gm/dl (3.4-5.0); BUN Creatinine Ratio 17.9 (10-20); Calcium 7.2 mg/dl (8.5-10.1); Creatinine Clr Calc Pharmacy 114.6 ml/min; Est GFR (African American) 108.1; Est GFR (Non-African American) 93.3; Magnesium 1.7 mg/dl (1.8-2.4); Potassium 4.5 mmol/L (3.5-5.1)
[2020-04-22 01:33] LABS: Bilirubin Direct 0.2 mg/dl (0-0.2); Bilirubin,Total 0.3 mg/dl (0.2-1); Phosphorus 2.1 mg/dl (2.5-4.9); Total Protein 5.5 gm/dl (6.4-8.2)
[2020-04-22 01:41] LABS: INR 3.2 (0.9-1.1); Partial Thromboplastin Ratio 1.7; Prothrombin Time 31.5 Seconds (9.0-12.0)
[2020-04-22 01:56] LABS: Partial Thromboplastin Time 48.3 Seconds (21.0-31.0)
[2020-04-22] MEDS: propofoL 1,000 MG/100 ML VIAL IV SCH ×6 (03:14→08:04)
[2020-04-22] MEDS: AMPICILLIN/SULBACTAM SOD 3,000 MG in 0.9 % SODIUM CHLORIDE 100 ML IV SCH (04:47)
[2020-04-22] MEDS: MAGNESIUM SULFATE / D5W 1 GM/100 ML BAG IV SCH ×2 (04:52→06:41)
[2020-04-22] MEDS: ACETAMINOPHEN 65 ML IV PRN ×2 (05:56→15:55)
[2020-04-22 07:15] LABS: Basophils # (auto) 0.01 K/uL (0-0.2); Basophils % (auto) 0.1 %; Eosinophils # (auto) 0.01 K/uL (0-0.5); Eosinophils % (auto) 0.1 %; Hematocrit (blood only) 37.1 % (42-52); Immature Granulocytes # (auto) 0.02 K/uL (0.00-0.02); Immature Granulocytes % (auto) 0.3 %; Lymphocytes # (auto) 0.54 K/uL (1.2-3.4); Lymphocytes % (auto) 7.6 %; Mean Corpuscular Hgb Conc 32.3 g/dL (32-36); Mean Corpuscular Volume 95.9 fL (80-100); Mean Platelet Volume 10.3 fL (7.4-10.4); Monocytes # (auto) 0.77 K/uL (0.11-0.59); Monocytes % (auto) 10.8 %; Neutrophils # (auto) 5.78 K/uL (1.4-6.5); Neutrophils % (auto) 81.1 %; Platelet Count 199 K/uL (130-400); RDW Standard Deviation 52.5 fL (36.4-46.3); Red Blood Count 3.87 M/uL (4.7-6.1); White Blood Count 7.13 K/uL (4.8-10.8)
--- NOTE | 2020-04-22 07:29 | XRay Report ---
XR chest 1V portable CLINICAL HISTORY: resp failure dyspnea COMPARISON STUDY: 04/21/2020 FINDINGS: Endotracheal tube is 5 cm above the jasbir. Moderate stable cardiomegaly. Mild increase in bronchovascular prominence. IMPRESSION: 1. Endotracheal tube 5 cm above the jasbir. 2. Increase in pulmonary vasculature suggesting mild congestive failure. ACT 112: Negative or not required by law. The above report was generated using voice recognition software. It may contain grammatical, syntax or spelling errors. Electronically signed by: Edy Vines M.D. 04/22/2020 7:27 AM
[2020-04-22 07:38] LABS: INR 2.4 (0.9-1.1); Partial Thromboplastin Ratio 1.6; Prothrombin Time 24.6 Seconds (9.0-12.0)
[2020-04-22 07:39] LABS: BUN Creatinine Ratio 18.7 (10-20); Calcium 7.5 mg/dl (8.5-10.1); Est GFR (African American) 109.8; Est GFR (Non-African American) 94.7; Magnesium 2.1 mg/dl (1.8-2.4); Phosphorus 2.4 mg/dl (2.5-4.9); Potassium 4.1 mmol/L (3.5-5.1)
[2020-04-22 07:55] LABS: Partial Thromboplastin Time 45.9 Seconds (21.0-31.0)
[2020-04-22] MEDS: FAMOTIDINE 20 MG in SYRINGE 3 ML IV SCH ×2 (07:56→20:09)
[2020-04-22] MEDS: fentaNYL DRIP 1,250 MCG/250 ML BAG IV SCH (08:02)
[2020-04-22] MEDS ORDERED: Nursing to Pharmacy Communication ONE (08:05)
--- NOTE | 2020-04-22 08:14 | Critical Care Progress Note ---
Date of Service April 22, 2020 Assessment & Plan (1) Cardiac arrest: Impression: 65-year-old male with out of hospital witnessed V. fib arrest of unclear etiology. He underwent cardiac catheterization which showed no coronary lesions and has been initiated on hypothermia for neuro protection. His estimated downtime was between 7 and 30 minutes although again as this event occurred during sleep is unclear when his actual arrhythmia initiated. He presented with lactic acidosis and mild transaminitis which are all improving. 24-hour events: Patient rewarmed over the last 24 hours. He was weaned off of epinephrine. This morning he was on SBT and is able to wiggle his toes to command and hold his head up off the bed. He was extubated to nasal cannula and is doing reasonably well. He remains confused. Recommendations: 1. Neurologic: There was some report of posturing and questionable seizure activity on presentation. Patient completed 24 hours of therapeutic hypothermia and is been rewarmed. He is moving all 4 extremities and now extubated. There is some confusion and it is unclear whether this represents a mild degree of anoxic encephalopathy versus medication effect. Continue to follow for now. No indication for EEG or's additional [employer] imaging currently. We will keep cooling catheter in for a few hours this morning to ensure the patient does not have rebound fever. If his temperature looks good, can consider removing it later today. 2. Cardiovascular: Status post cardiac arrest. Echo shows depressed EF. History of A. fib. Unclear if the reduced EF is related to his current cardiac arrest or potential undiagnosed cardiomyopathy. He is now off pressors. He does appear to be back in atrial fibrillation with a rapid ventricular response this morning and occasionally has a wide-complex QRS. Will check 12-lead this morning. Metoprolol 5 mg IV every 5 minutes x3 and may need to restart oral medications although will need formal speech therapy/swallow evaluation typically is not performed for 24 hours post extubation. Could consider esmolol infusion if needed. Will need assessment for defibrillator prior to discharge. Chest x-ray appears mildly fluid overloaded and will give 1 dose of Lasix this morning. Okay to discontinue arterial line 3. Pulmonary: Now extubated. Start incentive spirometry. Wean oxygen as tolerated to keep saturations 88 to 90%. 4. GI: Mild transaminitis on presentation possibly secondary to shock liver. Numbers are improving. Continue to follow for now. N.p.o. for now pending swallow evaluation 5. ID: Patient is currently day # 4 antibiotics, currently Unasyn for potential aspiration pneumonia as well as urinary tract infection although his urinalysis does appear more consistent with a contaminated specimen given the high number of epithelial cells. Culture showed no growth to date. Procalcitonin negative. Will discontinue antibiotics and follow. 6. Endocrine: We will discontinue insulin infusion and transition to sliding scale insulin 7. Renal: Patient presented with mild renal insufficiency, now back to normal. Will follow with diuretics. Electrolytes and acid-base status appropriate. 8. Heme-onc: Elevated INR secondary to Coumadin and potential shock liver. No signs of bleeding currently. We will continue to monitor INR and allow to drift down. If there is signs of bleeding, will administer FFP. Spouse updated via telephone. Discussed with cardiology at bedside. (2) A-fib: (3) On warfarin therapy: Admission and Anticipated Discharge Date Admission Date: April 19, 2020 Subjective Intubated and sedated on propofol. Does follow commands Review of Systems Review of Systems: Unobtainable due to endotracheal tube Physical Exam Constitutional: + mechanically ventilated Neck: trachea midline, no thyromegaly Respiratory: normal respiratory effort, lungs clear to auscultation Cardiovascular: RRR, no murmur, no edema Gastrointestinal (Abdomen): normal bowel sounds, soft, nontender, no hepatosplenomegaly Musculoskeletal: Extremities: extremities normal to inspection Skin: no rashes, warm and dry Lymphatic: no cervical lymphadenopathy Results & Data Results & Data ([facility]) Vital Signs (Past 12 Hours) Vital Signs Pulse Resp BP Pulse Ox 04/22/20 07:19 115 H 18 100 04/22/20 07:13 95 H 16 100 04/22/20 05:12 118 H 22 100 04/22/20 01:34 89 16 100 04/21/20 22:30 99 H 100 04/21/20 22:23 105 H 28 H 100 04/21/20 22:00 112 H 100 04/21/20 21:30 115 H 100 04/21/20 21:01 107 H 185/86 H 100 04/21/20 21:00 108 H 100 04/21/20 20:30 101 H 100 Laboratory Results 04/22/20 06:50 04/22/20 06:50 Coding Level of Care Code 38143 Subseq Hosp Care Lvl 3 Diagnoses Cardiac arrest I46.9 A-fib I48.91 On warfarin therapy Z79.01
[2020-04-22] MEDS ORDERED: METOPROLOL TARTRATE 1 MG/ML VIAL IV ONE (08:21)
[2020-04-22] MEDS ORDERED: FUROSEMIDE 20 MG in SYRINGE 0 ML IV ONE (08:45)
[2020-04-22] MEDS ORDERED: CALCIUM CHLORIDE 10% 1,000 MG in SODIUM CHLORIDE 0.9% 50 ML IV ONE (08:45)
[2020-04-22] MEDS: METOPROLOL TARTRATE 1 MG/ML VIAL IV PRN ×2 (08:48→17:00)
--- NOTE | 2020-04-22 09:31 | Cardiology Progress Note ---
Date of Service April 22, 2020 Assessment & Plan (1) Cardiac arrest: Status post [id number] cardiac arrest with uncertain downtime currently completing Arctic protocol with patient now awake and extubated moderately confused but conversant Hepatic enzymes trending downward, no tachyarrhythmias, hemodynamically stable Heart rates trending upward Agree with diuretics ordered Beta-rafaela restarted we will continue with metoprolol tartrate 5 mg IV every 4 hours Echocardiogram to be repeated in a.m. assess LV function Will likely require pacer defibrillator this admission continue to maintain telemetry (2) Ventricular fibrillation: (3) Left bundle branch block: (4) A-fib: (5) On warfarin therapy: (6) AIVR (accelerated idioventricular rhythm): Cardiology will continue to follow patient during hospitalization Subjective Patient seen and examined, chart, medications, telemetry reviewed. Patient now extubated and awake moderately confused but conversant No symptomatic complaints Blood pressures are improved off pressors heart rate now increasing, chronic atrial fibrillation Review of Systems Review of Systems: All systems reviewed & are unremarkable except as noted in HPI & below Physical Exam Constitutional: well developed and well nourished; no acute distress Eyes: PERRL, conjunctivae normal, anicteric sclerae ENMT: external ear and nose normal, oropharynx normal Neck: trachea midline, no thyromegaly Respiratory: Auscultation: + bronchial breath sounds (Right-sided) Cardiovascular: Rate/Rhythm: + irregularly irregular Heart Sounds: normal S1 and normal S2 Palpation: normal PMI Vessels: no JVD Extremities: normal capillary refill Gastrointestinal (Abdomen): normal bowel sounds, soft, nontender, no hepatosplenomegaly Musculoskeletal: no cyanosis or clubbing, extremities motor strength 5/5 Results & Data Vital Signs (Past 12 Hours) Vital Signs Pulse Resp BP Pulse Ox 04/22/20 08:48 107 H 128/86 04/22/20 08:26 124 H 126/80 04/22/20 08:01 119 H 126/80 98 04/22/20 08:00 130 H 99 04/22/20 07:39 115 H 148/82 H 100 04/22/20 07:30 126 H 100 04/22/20 07:19 115 H 18 100 04/22/20 07:13 95 H 16 100 04/22/20 07:00 87 100 04/22/20 05:12 118 H 22 100 04/22/20 01:34 89 16 100 04/21/20 22:30 99 H 100 04/21/20 22:23 105 H 28 H 100 04/21/20 22:00 112 H 100 04/21/20 21:30 115 H 100 Laboratory Results Laboratory Results - last 24 hr 04/21/20 04/21/20 04/21/20 10:14 11:14 11:55 WBC RBC Hgb Hct MCV MCH MCHC RDW Std Deviation RDW Coeff of Charles Plt Count MPV Immature Gran % (Auto) Neut % (Auto) Lymph % (Auto) [place] % (Auto) Eos % (Auto) Baso % (Auto) Immature Gran # (Auto) Neut # (Auto) Lymph # (Auto) [place] # (Auto) Eos # (Auto) Baso # (Auto) PT INR APTT PTT Ratio Sample Site Art Line POC pH 7.26 L POC pCO2 52 H POC pO2 131 H POC HCO3 23 POC Total CO2 25 POC Base Excess -4.0 POC ABG O2 Sat 98.0 H Caleb Test NA O2 Delivery Device Ventilator POC O2 Rate 16 Minute Ventilation 8.0 POC FiO2 30 Tidal Volume 550 PEEP 5 Sodium Potassium Chloride Carbon Dioxide Anion Gap BUN Creatinine Est Cr Clr Drug Dosing Est GFR ( Amer) Est GFR (Non-Af Amer) BUN/Creatinine Ratio Glucose POC Glucose (other) 153 H 143 H Calcium Phosphorus Magnesium Total Bilirubin Direct Bilirubin AST ALT Alkaline Phosphatase Total Protein Albumin 04/21/20 04/21/20 04/21/20 12:00 12:47 12:47 WBC 6.80 RBC 3.99 L Hgb 12.2 L Hct 37.0 L MCV 92.7 MCH 30.6 MCHC 33.0 RDW Std Deviation 48.8 H RDW Coeff of Charles 14.4 Plt Count 211 MPV 9.9 Immature Gran % (Auto) 0.1 Neut % (Auto) 76.4 Lymph % (Auto) 12.1 [place] % (Auto) 10.9 Eos % (Auto) 0.4 Baso % (Auto) 0.1 Immature Gran # (Auto) 0.01 Neut # (Auto) 5.19 Lymph # (Auto) 0.82 L [place] # (Auto) 0.74 H Eos # (Auto) 0.03 Baso # (Auto) 0.01 PT 40.2 H INR 4.1 H APTT 46.8 H* PTT Ratio 1.7 Sample Site POC pH POC pCO2 POC pO2 POC HCO3 POC Total CO2 POC Base Excess POC ABG O2 Sat Caleb Test O2 Delivery Device POC O2 Rate Minute Ventilation POC FiO2 Tidal Volume PEEP Sodium Potassium Chloride Carbon Dioxide Anion Gap BUN Creatinine Est Cr Clr Drug Dosing Est GFR ( Amer) Est GFR (Non-Af Amer) BUN/Creatinine Ratio Glucose POC Glucose (other) 132 H Calcium Phosphorus Magnesium Total Bilirubin Direct Bilirubin AST ALT Alkaline Phosphatase Total Protein Albumin 04/21/20 04/21/20 04/21/20 12:47 12:51 14:59 WBC RBC Hgb Hct MCV MCH MCHC RDW Std Deviation RDW Coeff of Charles Plt Count MPV Immature Gran % (Auto) Neut % (Auto) Lymph % (Auto) [place] % (Auto) Eos % (Auto) Baso % (Auto) Immature Gran # (Auto) Neut # (Auto) Lymph # (Auto) [place] # (Auto) Eos # (Auto) Baso # (Auto) PT INR APTT PTT Ratio Sample Site POC pH POC pCO2 POC pO2 POC HCO3 POC Total CO2 POC Base Excess POC ABG O2 Sat Caleb Test O2 Delivery Device POC O2 Rate Minute Ventilation POC FiO2 Tidal Volume PEEP Sodium 144 Potassium 3.8 Chloride 113 H Carbon Dioxide 26 Anion Gap 5.0 BUN 16 Creatinine 0.91 Est Cr Clr Drug Dosing 102.0 Est GFR ( Amer) 102.1 Est GFR (Non-Af Amer) 88.1 BUN/Creatinine Ratio 17.1 Glucose 118 H POC Glucose (other) 120 H 104 H Calcium 7.7 L Phosphorus 2.7 Magnesium 2.0 Total Bilirubin Direct Bilirubin AST ALT Alkaline Phosphatase Total Protein Albumin 04/21/20 04/21/20 04/21/20 17:08 17:56 18:32 WBC RBC Hgb Hct MCV MCH MCHC RDW Std Deviation RDW Coeff of Charles Plt Count MPV Immature Gran % (Auto) Neut % (Auto) Lymph % (Auto) [place] % (Auto) Eos % (Auto) Baso % (Auto) Immature Gran # (Auto) Neut # (Auto) Lymph # (Auto) [place] # (Auto) Eos # (Auto) Baso # (Auto) PT INR APTT PTT Ratio Sample Site POC pH POC pCO2 POC pO2 POC HCO3 POC Total CO2 POC Base Excess POC ABG O2 Sat Caleb Test O2 Delivery Device POC O2 Rate Minute Ventilation POC FiO2 Tidal Volume PEEP Sodium Potassium Chloride Carbon Dioxide Anion Gap BUN Creatinine Est Cr Clr Drug Dosing Est GFR ( Amer) Est GFR (Non-Af Amer) BUN/Creatinine Ratio Glucose POC Glucose (other) 82 76 74 Calcium Phosphorus Magnesium Total Bilirubin Direct Bilirubin AST ALT Alkaline Phosphatase Total Protein Albumin 04/21/20 04/21/20 04/21/20 19:00 19:12 19:12 WBC 7.10 RBC 3.91 L Hgb 12.2 L Hct 37.0 L MCV 94.6 MCH 31.2 MCHC 33.0 RDW Std Deviation 51.0 H RDW Coeff of Charles 14.9 H Plt Count 206 MPV 10.2 Immature Gran % (Auto) 0.1 Neut % (Auto) 79.8 Lymph % (Auto) 8.6 [place] % (Auto) 11.4 Eos % (Auto) 0.1 Baso % (Auto) 0.0 Immature Gran # (Auto) 0.01 Neut # (Auto) 5.66 Lymph # (Auto) 0.61 L [place] # (Auto) 0.81 H Eos # (Auto) 0.01 Baso # (Auto) 0.00 PT 38.4 H INR 3.9 H APTT 50.1 H* PTT Ratio 1.8 Sample Site POC pH POC pCO2 POC pO2 POC HCO3 POC Total CO2 POC Base Excess POC ABG O2 Sat Caleb Test O2 Delivery Device POC O2 Rate Minute Ventilation POC FiO2 Tidal Volume PEEP Sodium Potassium Chloride Carbon Dioxide Anion Gap BUN Creatinine Est Cr Clr Drug Dosing Est GFR ( Amer) Est GFR (Non-Af Amer) BUN/Creatinine Ratio Glucose POC Glucose (other) 71 Calcium Phosphorus Magnesium Total Bilirubin Direct Bilirubin AST ALT Alkaline Phosphatase Total Protein Albumin 04/21/20 04/21/20 04/21/20 19:12 19:20 21:01 WBC RBC Hgb Hct MCV MCH MCHC RDW Std Deviation RDW Coeff of Charles Plt Count MPV Immature Gran % (Auto) Neut % (Auto) Lymph % (Auto) [place] % (Auto) Eos % (Auto) Baso % (Auto) Immature Gran # (Auto) Neut # (Auto) Lymph # (Auto) [place] # (Auto) Eos # (Auto) Baso # (Auto) PT INR APTT PTT Ratio Sample Site POC pH POC pCO2 POC pO2 POC HCO3 POC Total CO2 POC Base Excess POC ABG O2 Sat Caleb Test O2 Delivery Device POC O2 Rate Minute Ventilation POC FiO2 Tidal Volume PEEP Sodium 143 Potassium 4.7 D Chloride 112 H Carbon Dioxide 27 Anion Gap 4.0 BUN 14 Creatinine 0.84 Est Cr Clr Drug Dosing 110.5 Est GFR ( Amer) 106.5 Est GFR (Non-Af Amer) 91.9 BUN/Creatinine Ratio 17.0 Glucose 69 L POC Glucose (other) 71 72 Calcium 7.5 L Phosphorus 3.0 Magnesium 1.9 Total Bilirubin Direct Bilirubin AST ALT Alkaline Phosphatase Total Protein Albumin 04/21/20 04/22/20 04/22/20 22:49 00:29 00:45 WBC 7.00 RBC 3.86 L Hgb 11.9 L Hct 36.2 L MCV 93.8 MCH 30.8 MCHC 32.9 RDW Std Deviation 51.2 H RDW Coeff of Charles 15.1 H Plt Count 193 MPV 10.2 Immature Gran % (Auto) 0.1 Neut % (Auto) 85.0 Lymph % (Auto) 6.1 [place] % (Auto) 8.7 Eos % (Auto) 0.1 Baso % (Auto) 0.0 Immature Gran # (Auto) 0.01 Neut # (Auto) 5.94 Lymph # (Auto) 0.43 L [place] # (Auto) 0.61 H Eos # (Auto) 0.01 Baso # (Auto) 0.00 PT INR APTT PTT Ratio Sample Site POC pH POC pCO2 POC pO2 POC HCO3 POC Total CO2 POC Base Excess POC ABG O2 Sat Caleb Test O2 Delivery Device POC O2 Rate Minute Ventilation POC FiO2 Tidal Volume PEEP Sodium Potassium Chloride Carbon Dioxide Anion Gap BUN Creatinine Est Cr Clr Drug Dosing Est GFR ( Amer) Est GFR (Non-Af Amer) BUN/Creatinine Ratio Glucose POC Glucose (other) 86 95 Calcium Phosphorus Magnesium Total Bilirubin Direct Bilirubin AST ALT Alkaline Phosphatase Total Protein Albumin 04/22/20 04/22/20 04/22/20 00:45 00:45 02:20 WBC RBC Hgb Hct MCV MCH MCHC RDW Std Deviation RDW Coeff of Charles Plt Count MPV Immature Gran % (Auto) Neut % (Auto) Lymph % (Auto) [place] % (Auto) Eos % (Auto) Baso % (Auto) Immature Gran # (Auto) Neut # (Auto) Lymph # (Auto) [place] # (Auto) Eos # (Auto) Baso # (Auto) PT 31.5 H INR 3.2 H APTT 48.3 H* PTT Ratio 1.7 Sample Site POC pH POC pCO2 POC pO2 POC HCO3 POC Total CO2 POC Base Excess POC ABG O2 Sat Caleb Test O2 Delivery Device POC O2 Rate Minute Ventilation POC FiO2 Tidal Volume PEEP Sodium 143 Potassium 4.5 Chloride 113 H Carbon Dioxide 26 Anion Gap 4.0 BUN 14 Creatinine 0.81 Est Cr Clr Drug Dosing 114.6 Est GFR ( Amer) 108.1 Est GFR (Non-Af Amer) 93.3 BUN/Creatinine Ratio 17.9 Glucose 95 POC Glucose (other) 93 Calcium 7.2 L Phosphorus 2.1 L Magnesium 1.7 L Total Bilirubin 0.3 Direct Bilirubin 0.2 AST 116 H ALT 299 H Alkaline Phosphatase 37 L Total Protein 5.5 L Albumin 2.7 L 04/22/20 04/22/20 04/22/20 05:14 06:37 06:50 WBC 7.13 RBC 3.87 L Hgb 12.0 L Hct 37.1 L MCV 95.9 MCH 31.0 MCHC 32.3 RDW Std Deviation 52.5 H RDW Coeff of Charles 15.0 H Plt Count 199 MPV 10.3 Immature Gran % (Auto) 0.3 Neut % (Auto) 81.1 Lymph % (Auto) 7.6 [place] % (Auto) 10.8 Eos % (Auto) 0.1 Baso % (Auto) 0.1 Immature Gran # (Auto) 0.02 Neut # (Auto) 5.78 Lymph # (Auto) 0.54 L [place] # (Auto) 0.77 H Eos # (Auto) 0.01 Baso # (Auto) 0.01 PT INR APTT PTT Ratio Sample Site POC pH POC pCO2 POC pO2 POC HCO3 POC Total CO2 POC Base Excess POC ABG O2 Sat Caleb Test O2 Delivery Device POC O2 Rate Minute Ventilation POC FiO2 Tidal Volume PEEP Sodium Potassium Chloride Carbon Dioxide Anion Gap BUN Creatinine Est Cr Clr Drug Dosing Est GFR ( Amer) Est GFR (Non-Af Amer) BUN/Creatinine Ratio Glucose POC Glucose (other) 92 99 Calcium Phosphorus Magnesium Total Bilirubin Direct Bilirubin AST ALT Alkaline Phosphatase Total Protein Albumin 04/22/20 04/22/20 06:50 06:50 WBC RBC Hgb Hct MCV MCH MCHC RDW Std Deviation RDW Coeff of Charles Plt Count MPV Immature Gran % (Auto) Neut % (Auto) Lymph % (Auto) [place] % (Auto) Eos % (Auto) Baso % (Auto) Immature Gran # (Auto) Neut # (Auto) Lymph # (Auto) [place] # (Auto) Eos # (Auto) Baso # (Auto) PT 24.6 H INR 2.4 H APTT 45.9 H* PTT Ratio 1.6 Sample Site POC pH POC pCO2 POC pO2 POC HCO3 POC Total CO2 POC Base Excess POC ABG O2 Sat Caleb Test O2 Delivery Device POC O2 Rate Minute Ventilation POC FiO2 Tidal Volume PEEP Sodium 143 Potassium 4.1 Chloride 111 H Carbon Dioxide 25 Anion Gap 7.0 BUN 15 Creatinine 0.78 Est Cr Clr Drug Dosing 119.0 Est GFR ( Amer) 109.8 Est GFR (Non-Af Amer) 94.7 BUN/Creatinine Ratio 18.7 Glucose 98 POC Glucose (other) Calcium 7.5 L Phosphorus 2.4 L Magnesium 2.1 Total Bilirubin Direct Bilirubin AST ALT Alkaline Phosphatase Total Protein Albumin
[2020-04-22] MEDS: METOPROLOL TARTRATE 1 MG/ML VIAL IV SCH ×3 (11:54→20:10)
[2020-04-22] MEDS: INSULIN ASPART 100 UNITS/ML 3 ML PEN SC SCH ×2 (11:56→17:07)
--- NOTE | 2020-04-22 12:25 | Pharmacy Report ---
Pharmacy Glycemic Short Note 2 - Date of Service April 22, 2020 - Glycemic Short BSG Results (Last 24 hours): 04/21/20 04/21/20 04/21/20 12:00 12:47 12:51 Glucose 118 H POC Glucose POC Glucose (other) 132 H 120 H 04/21/20 04/21/20 04/21/20 14:59 17:08 17:56 Glucose POC Glucose POC Glucose (other) 104 H 82 76 04/21/20 04/21/20 04/21/20 18:32 19:00 19:12 Glucose 69 L POC Glucose POC Glucose (other) 74 71 04/21/20 04/21/20 04/21/20 19:20 21:01 22:49 Glucose POC Glucose POC Glucose (other) 71 72 86 04/22/20 04/22/20 04/22/20 00:29 00:45 02:20 Glucose 95 POC Glucose POC Glucose (other) 95 93 04/22/20 04/22/20 04/22/20 05:14 06:37 06:50 Glucose 98 POC Glucose POC Glucose (other) 92 99 04/22/20 11:55 Glucose POC Glucose 104 H POC Glucose (other) OUTPATIENT ANTIDIABETIC REGIMEN: * N/A no diagnosis of baseline DM per A1c of 5.6% on 04/21/2020 ASSESSMENT: * 65 yo M with cardiac arrest s/p ROSC and initiation of 24 hour therapeutic hypothermia protocol 04/20/20. Pt to be re-warmed 04/22/20 * IV insulin infusion has been held since last evening. All BSGs in range without infusion. Will stop infusion and just use correctional insulin monotherapy since pt does not have baseline DM and acute stresses are minimized. PLAN FOR INPATIENT GLYCEMIC CONTROL: * DC IV insulin infusion * Monitor BSGs q6hrs after re-warming and IV insulin infusion dc. Initiate SQ basal bolus if needed for BSGs > 180. Initiate SQ bolus insulin monotherapy for BSGs >140 but less than 180 sustained. * Since all BSGs < 140 will order: * NovoLog Q6hrs * Goal: 110 -140 mg/dl * CF = 30 mg/dl/unit * CR = (none)
--- NOTE | 2020-04-22 19:03 | Hospitalist Progress Note ---
Date of Service April 22, 2020 Assessment & Plan (1) Cardiac arrest: S/P cardiac arrest unknown etiology Successful CPR with return of spontaneous circulation post defibrillation. Intubated/sedated on Francisco support, Now extubated today Completed hypothermia protocol S/P cardiac cath showed no significant blockage Follow command Continue monitor in the ICU Ventricular Fibrillation Afib ECHO showed ejection fraction of 20 to 25% Amiodarone on hold due to bradycardia Coumadin on hold Cardiology on board Consider biventricular ICD implantation once stable by electrophysiology Starting on low dose beta rafaela IV Will repeat ECHO in am CRYSTAL Mostly due to hypovolemia due to cardiac arrest Creatinine on admission 1.8 Creatinine normalized 0.7 Resolved Hypotension Levophed drip discontinued Continue monitor BP Resolved Transaminitis ALT and ALT 698 and 569 respectively on admission Liver enzymes continue to trend down with AST 116 and ALT 299 Continue monitor LFTs. Hyperglycemia Hba1c 5.6 on 04/20/20 On insulin drip ICU protocol Continue monitor BS Questionable R Upper Lobe Infiltrate possible related to aspiration Repeat CXR showed increase in pulmonary vasculature suggesting mild congestive failure. lactic acid elevated on admission WBC and procalcitonin normal and afebrile Unasyn discontinued Elevated Lactate Mostly related to the cardiac arrest Lactate on admission 5.2 Procalcitonin and WBC WNL Lactate normalized Supratherapeutic INR Coumadin peaked to 6.1 Coumadin on hold INR 2.4 today DVT px INR 2.4 today CODE status Full code Disposition Continue monitor ICU Admission and Anticipated Discharge Date Admission Date: April 19, 2020 Subjective Pt was seen and examined Lying in bed with no distress moderately confused Hypothermia protocol completed Pt extubated and awaked Denies any chest pain, palpitation, dizziness and SOB Physical Exam Physical Exam: General- No acute distress Head- atraumatic ENT- Extubated Neck- supple, no JVD Lungs- Coarse BS Heart- no murmur Abdomen- normal bowel sounds, soft, nontender Extremities- no calf tenderness Neuro- Moves all 4 extremities, follow commands Skin- warm & dry Results & Data Results & Data ([facility]) Vital Signs (Past 12 Hours) Vital Signs Pulse Resp BP Pulse Ox 04/22/20 18:01 110 H 149/84 H 92 04/22/20 18:00 99 H 93 04/22/20 17:01 119 H 161/95 H 92 04/22/20 17:00 118 H 162/100 H 92 04/22/20 16:02 112 H 97 06/07/20 16:01 127 H 162/100 H 97 04/22/20 16:00 108 H 97 04/22/20 15:22 113 H 156/85 H 95 04/22/20 15:01 105 H 157/104 H 97 04/22/20 15:00 109 H 96 04/22/20 14:01 109 H 159/88 H 97 04/22/20 14:00 111 H 97 04/22/20 13:01 102 H 158/78 H 04/22/20 13:00 99 H 04/22/20 12:01 113 H 155/87 H 92 04/22/20 12:00 112 H 92 04/22/20 11:54 124 H 126/86 04/22/20 11:02 109 H 126/86 97 04/22/20 11:00 107 H 96 04/22/20 10:01 111 H 113/87 97 04/22/20 10:00 124 H 96 04/22/20 09:01 101 H 156/89 H 97 04/22/20 09:00 97 H 97 04/22/20 08:49 115 H 128/86 98 04/22/20 08:48 107 H 128/86 04/22/20 08:26 124 H 126/80 04/22/20 08:01 119 H 126/80 98 04/22/20 08:00 130 H 99 04/22/20 07:39 115 H 148/82 H 100 04/22/20 07:30 126 H 100 04/22/20 07:19 115 H 18 100 04/22/20 07:13 95 H 16 100 04/22/20 07:00 87 100
[2020-04-23] MEDS: INSULIN ASPART 100 UNITS/ML 3 ML PEN SC SCH ×3 (00:24→12:18)
[2020-04-23] MEDS: METOPROLOL TARTRATE 1 MG/ML VIAL IV SCH ×3 (00:25→08:10)
[2020-04-23] MEDS ORDERED: ACETAMINOPHEN 325 MG TAB PO PRN (01:22)
[2020-04-23] MEDS ORDERED: ACETAMINOPHEN 65 ML IV PRN (01:39)
[2020-04-23 04:50] LABS: Basophils # (auto) 0.01 K/uL (0-0.2); Basophils % (auto) 0.1 %; Hematocrit (blood only) 36.5 % (42-52); Immature Granulocytes # (auto) 0.02 K/uL (0.00-0.02); Immature Granulocytes % (auto) 0.3 %; Lymphocytes # (auto) 0.89 K/uL (1.2-3.4); Lymphocytes % (auto) 12.9 %; Mean Corpuscular Hemoglobin 30.8 pg (25-34); Mean Corpuscular Hgb Conc 32.9 g/dL (32-36); Mean Corpuscular Volume 93.8 fL (80-100); Mean Platelet Volume 9.9 fL (7.4-10.4); Monocytes # (auto) 0.81 K/uL (0.11-0.59); Monocytes % (auto) 11.7 %; Neutrophils # (auto) 5.18 K/uL (1.4-6.5); Platelet Count 223 K/uL (130-400); RDW Standard Deviation 47.6 fL (36.4-46.3); Red Blood Count 3.89 M/uL (4.7-6.1); White Blood Count 6.91 K/uL (4.8-10.8)
[2020-04-23 05:10] LABS: Albumin Level 2.9 gm/dl (3.4-5.0); BUN Creatinine Ratio 23.1 (10-20); Calcium 8.6 mg/dl (8.5-10.1); Creatinine Clr Calc Pharmacy 110.5 ml/min; Est GFR (African American) 106.5; Est GFR (Non-African American) 91.9; Magnesium 1.8 mg/dl (1.8-2.4); Potassium 3.8 mmol/L (3.5-5.1)
[2020-04-23 05:30] LABS: Bilirubin,Total 0.9 mg/dl (0.2-1); Phosphorus 2.2 mg/dl (2.5-4.9); Total Protein 5.9 gm/dl (6.4-8.2)
[2020-04-23] MEDS ORDERED: POTASSIUM CHLORIDE / WTR 10 MEQ/100 ML PLCT IV ONE (05:32)
[2020-04-23] MEDS ORDERED: MAGNESIUM SULFATE / D5W 1 GM/100 ML BAG IV ONE (05:32)
--- NOTE | 2020-04-23 05:36 | Electrocardiogram Report ---
Test Reason : Blood Pressure : / mmHG Vent. Rate : 091 BPM Atrial Rate : 093 BPM P-R Int : 000 ms QRS Dur : 138 ms QT Int : 412 ms P-R-T Axes : 000 -50 075 degrees QTc Int : 506 ms Atrial fibrillation Left axis deviation Left bundle branch block Abnormal ECG When compared with ECG of 21-APR-2020 13:03, No significant change was found Confirmed by Carlos Gamez ([id number]) on 04/23/2020 5:36:22 AM Referred By: REFERRED SELF Confirmed By:Carlos Gamez
--- NOTE | 2020-04-23 05:50 | Electrocardiogram Report ---
Test Reason : Blood Pressure : / mmHG Vent. Rate : 133 BPM Atrial Rate : 119 BPM P-R Int : 000 ms QRS Dur : 134 ms QT Int : 352 ms P-R-T Axes : 000 -51 122 degrees QTc Int : 523 ms Atrial fibrillation with rapid ventricular response Left axis deviation Left bundle branch block Abnormal ECG When compared with ECG of 21-APR-2020 18:22, HR has increased by 42 bpm Confirmed by Carlos Gamez ([id number]) on 04/23/2020 5:50:12 AM Referred By: REFERRED SELF Confirmed By:Carlos Gamez
[2020-04-23] MEDS: FAMOTIDINE 20 MG in SYRINGE 3 ML IV SCH ×2 (08:13→21:25)
[2020-04-23 08:25] LABS: INR 1.3 (0.9-1.1); Prothrombin Time 13.9 Seconds (9.0-12.0)
[2020-04-23] MEDS ORDERED: ACETAMINOPHEN 325 MG SUPP PR STA (08:36)
--- NOTE | 2020-04-23 09:12 | Critical Care Progress Note ---
Date of Service April 23, 2020 Assessment & Plan (1) Cardiac arrest: Impression: 65-year-old male with out of hospital witnessed V. fib arrest of unclear etiology. He underwent cardiac catheterization which showed no coronary lesions and has been initiated on hypothermia for neuro protection. His estimated downtime was between 7 and 30 minutes although again as this event occurred during sleep is unclear when his actual arrhythmia initiated. He presented with lactic acidosis and mild transaminitis which are all improving. Recommendations: 1. Neurologic: Encephalopathy appears to be clearing at this point. Avoid sedatives. Delirium precautions. 2. Cardiovascular: Rate continue PRN metoprolol. Speech study is pending. Once he is able to take p.o. medications, will start him on p.o. metoprolol. Will need evaluation for possible AICD. Will defer to cardiology. Echo this morning demonstrating an EF of 30 to 35%. Patient continues to be in A. fib RVR. INR down to 1.3 today. Will need to consider starting anticoagulation. He is to undergo an AICD placement on Thursday as discussed with the patient's credit relationship manager. Further heart failure directed medications as per cardiology. 3. Pulmonary: Minimal issues currently. I will obtain a chest x-ray given his fever. 4. GI: Mild transaminitis on presentation possibly secondary to shock liver. Numbers are improving. Continue to follow for now. N.p.o. for now pending swallow evaluation 5. ID: Patient received 4 days of antibiotics. Antibiotics discontinued yesterday. Repeating urinalysis, chest x-ray and procalcitonin today given his fever. If he continues to spike fever, we will start antibiotics and obtain blood cultures. Will give rectal Tylenol for now. 6. Endocrine: Continue hyperglycemia management per ICU protocol 7. Renal: Patient presented with mild renal insufficiency, now back to normal. Will follow with diuretics. Electrolytes and acid-base status appropriate. 8. Heme-onc: INR constricted down to 1.3. We will start heparin prophylaxis p er VTE's. Will likely restart low-dose Coumadin tomorrow. No signs of bleeding currently. Patient discussed on multidisciplinary rounds. He is safe to be transferred down to the floor with telemetry. (2) A-fib: (3) On warfarin therapy: (4) Transaminitis: (5) S/P admission to ICU (intensive care unit): Admission and Anticipated Discharge Date Admission Date: April 19, 2020 Subjective Patient doing much better this morning. He is alert, awake and oriented. He is able to tell me that he is in the medical building. He tells me that he is in [employer]. He was able to tell me his full name and date of . He denies any chest pain currently. No shortness of breath. He did have a temperature of 98 C this morning. Review of Systems Review of Systems: All systems reviewed & are unremarkable except as noted in HPI & below Physical Exam Constitutional: WD/WN, vitals as above Eyes: PERRL, conjunctivae normal, anicteric sclerae ENMT: external ear and nose normal, oropharynx normal Neck: trachea midline, no thyromegaly Respiratory: normal respiratory effort, lungs clear to auscultation symmetric chest movement Cardiovascular: RRR, no murmur, no edema Heart Sounds: normal S1 and normal S2 Vessels: no JVD Extremities: normal capillary refill; no edema Gastrointestinal (Abdomen): normal bowel sounds, soft, nontender, no hepatosplenomegaly Musculoskeletal: Extremities: extremities normal to inspection Skin: no rashes, warm and dry Neurologic: 5 out of 5 outreach representative strength bilaterally Lymphatic: no cervical lymphadenopathy Results & Data Results & Data ([facility]) Vital Signs (Past 12 Hours) Vital Signs Pulse BP Pulse Ox 04/23/20 08:10 105 H 151/85 H 04/23/20 08:00 105 H 04/23/20 07:01 94 H 149/100 H 95 04/23/20 07:00 104 H 95 04/23/20 06:30 107 H 96 04/23/20 06:01 117 H 148/88 H 04/23/20 06:00 107 H 04/23/20 05:30 107 H 96 04/23/20 05:01 92 H 158/93 H 98 04/23/20 05:00 94 H 95 04/23/20 04:51 96 H 165/79 H 04/23/20 04:30 105 H 97 04/23/20 04:01 103 H 165/79 H 94 04/23/20 04:00 112 H 94 04/23/20 03:30 104 H 96 04/23/20 03:01 100 H 152/92 H 94 04/23/20 03:00 102 H 94 04/23/20 02:30 101 H 97 06/08/20 02:01 105 H 129/81 04/23/20 02:00 100 H 04/23/20 01:30 106 H 95 04/23/20 01:02 104 H 151/87 H 84 L 04/23/20 01:00 102 H 91 04/23/20 00:30 107 H 97 04/23/20 00:25 95 H 134/81 04/23/20 00:01 97 H 134/81 93 04/23/20 00:00 100 H 94 04/22/20 23:30 110 H 04/22/20 23:01 102 H 143/89 H 95 04/22/20 23:00 102 H 04/22/20 22:30 103 H 95 04/22/20 22:01 103 H 150/84 H 94 04/22/20 22:00 104 H 94 04/22/20 21:59 101 H 128/97 94 04/22/20 21:30 96 H 90 I personally reviewed the patient's laboratory data, chest imaging and previous notes. Coding Level of Care Code 79297 Subseq Hosp Care Lvl 3 Diagnoses Cardiac arrest I46.9 A-fib I48.91 On warfarin therapy Z79.01 Transaminitis R74.0 S/P admission to ICU (intensive care unit)
--- NOTE | 2020-04-23 09:26 | XRay Report ---
XR chest 1V portable CLINICAL HISTORY: cough, mild fever COMPARISON STUDY: 04/22/2020 FINDINGS: The endotracheal tube and nasogastric tubes have been removed. The heart remains enlarged. There is persistent but improving congestive failure. There are small pleural effusions.[ IMPRESSION: 1. Persistent but improving congestive failure/fluid overload. 2. Interval removal of the endotracheal tube and nasogastric tubes. ACT 112: Negative or not required by law. Electronically signed by: Jules Ward M.D. 04/23/2020 9:25 AM
--- NOTE | 2020-04-23 10:49 | Pharmacy Report ---
Pharmacy Glycemic Sign Off Nt - Date of Service April 23, 2020 - Assessment & Plan ASSESSMENT: * Pharmacy was consulted by Dr. eDsir on 04/20 for glycemic control and to write orders per [facility] inpatient glycemic control protocol. * Patient initially requiring insulin infusion during therapeutic hypothermia but has since has been receiving/requiring 0 units of insulin per day for adequate glycemic control. * BSGs ranging 83 - 104 mg/dl * Do not anticipate further changes in patient status that would quickly deteriorate glycemic control (i.e. patient to be NPO for upcoming procedure, steroids tapering, starting tube feedings, etc). PLAN FOR INPATIENT GLYCEMIC CONTROL: No changes needed to current regimen. * Continue NovoLog per scale ACHS/Q6hrs while NPO * Goal range = 110 - 140 mg/dl * CF = 30 mg/dl/unit * CR = none * Pharmacy is signing off of glycemic consult and will no longer be making adjustments to inpatient regimen. Please feel free to re-consult if needed. Thank you. DISCHARGE RECOMMENDATIONS: * Should not require any therapy upon discharge A1c: 5.6% (04/21/20)
[2020-04-23] MEDS ORDERED: POTASSIUM PHOSPHATE 12 MMOL in SODIUM CHLORIDE 0.9% 250 ML IV ONE (11:00)
[2020-04-23] MEDS ORDERED: METOPROLOL TARTRATE 1 MG/ML VIAL IV SCH (12:00)
[2020-04-23 13:11] LABS: Appearance Urine Clear (Clear); Bacteria Urine Automated Negative (Negative); Blood Urine 1+ (Negative); Color Urine Dark Yellow; Epithelial Cell Urine Auto 20-30 /lpf (0-5); Glucose Urine UA Negative (Negative); Ketones Urine 2+ (Negative); Leukocyte Esterase Urine Negative (Negative); Nitrite Urine Negative (Negative); Protein Urine 1+ (Negative); Specific Gravity Urine 1.036 (1.000-1.030); Urobilinogen Urine Negative (Negative); pH Urine 5.5 (4.5-7.5)
[2020-04-23 13:32] LABS: Bilirubin Urine Negative (Negative); Ictotest Urine Negative (Negative)
--- NOTE | 2020-04-23 13:41 | Hospitalist Progress Note ---
Date of Service April 23, 2020 Assessment & Plan (1) Cardiac arrest: S/P cardiac arrest unknown etiology Successful CPR with return of spontaneous circulation post defibrillation. Was Intubated/sedated on Francisco support S/P extubated day 1 Completed hypothermia protocol S/P cardiac cath showed no significant blockage PT/OT eval Clinically improves Ventricular Fibrillation Afib ECHO showed ejection fraction of 20 to 25% Amiodarone on hold due to bradycardia Will resume coumadin Cardiology on board Consider biventricular ICD implantation once stable by electrophysiology Will transition to PO Betablocker Repeat ECHO showed moderate LV hypokinesis. EF 30-35 % CRYSTAL Mostly due to hypovolemia due to cardiac arrest Creatinine on admission 1.8 Creatinine normalized 0.8 Resolved Hypotension Levophed drip discontinued Continue monitor BP Resolved Transaminitis ALT and ALT 698 and 569 respectively on admission Liver enzymes continue to trend down with AST 83 and ALT 200 Continue monitor LFTs. Confusion Mostly due to post cardiac arrest CT head showed no acute intracranial abnormality No focal neuro deficit Consider neuro eval if symptoms does not improve Hyperglycemia Hba1c 5.6 on 04/20/20 On insulin drip ICU protocol BS has been stable Questionable R Upper Lobe Infiltrate possible related to aspiration Repeat CXR showed increase in pulmonary vasculature suggesting mild congestive failure. lactic acid elevated on admission WBC and procalcitonin normal and afebrile Unasyn discontinued Elevated Lactate Mostly related to the cardiac arrest Lactate on admission 5.2 Procalcitonin and WBC WNL Lactate normalized Supratherapeutic INR Coumadin peaked to 6.1 Coumadin on hold INR 1.3 today DVT px INR 1.3 today CODE status Full code Disposition Will transfer to tele Admission and Anticipated Discharge Date Admission Date: April 19, 2020 Subjective Pt was seen and examined Lying in bed with no distress with 1 to 1 sitter Confused but able to follow commands Denies any chest pain, palpitation, dizziness and SOB Physical Exam Physical Exam: General- No acute distress Head- atraumatic ENT- Extubated Neck- supple, no JVD Lungs- no wheezing Heart- Irregular, no murmur Abdomen- normal bowel sounds, soft, nontender Extremities- no calf tenderness Neuro- Moves all 4 extremities, follow commands Skin- warm & dry Results & Data Results & Data ([facility]) Vital Signs (Past 12 Hours) Vital Signs Pulse BP Pulse Ox 04/23/20 12:01 103 H 145/95 H 96 04/23/20 12:00 105 H 96 04/23/20 11:45 97 H 96 04/23/20 11:37 115 H 158/83 H 04/23/20 11:30 119 H 92 04/23/20 11:15 93 H 95 04/23/20 11:02 108 H 158/93 H 95 04/23/20 11:00 113 H 94 04/23/20 10:45 106 H 95 04/23/20 10:37 100 H 162/107 H 96 04/23/20 10:34 106 H 152/103 H 94 04/23/20 10:30 118 H 92 04/23/20 10:27 100 H 172/82 H 97 04/23/20 10:15 110 H 97 04/23/20 10:01 94 H 145/97 H 97 04/23/20 10:00 102 H 97 04/23/20 09:45 99 H 95 04/23/20 09:30 92 H 95 04/23/20 09:15 106 H 91 04/23/20 09:01 98 H 152/92 H 94 04/23/20 09:00 93 H 94 04/23/20 08:45 87 95 04/23/20 08:30 91 H 95 04/23/20 08:15 101 H 97 04/23/20 08:10 105 H 151/85 H 04/23/20 08:01 95 H 151/85 H 94 04/23/20 08:00 96 H 95 04/23/20 07:45 99 H 97 04/23/20 07:30 102 H 96 04/23/20 07:15 111 H 95 04/23/20 07:02 104 H 95 04/23/20 07:01 94 H 149/100 H 95 04/23/20 07:00 104 H 95 04/23/20 06:30 107 H 96 04/23/20 06:01 117 H 148/88 H 04/23/20 06:00 107 H 04/23/20 05:30 107 H 96 04/23/20 05:01 92 H 158/93 H 98 04/23/20 05:00 94 H 95 04/23/20 04:51 96 H 165/79 H 04/23/20 04:30 105 H 97 04/23/20 04:01 103 H 165/79 H 94 04/23/20 04:00 112 H 94 04/23/20 03:30 104 H 96 04/23/20 03:01 100 H 152/92 H 94 04/23/20 03:00 102 H 94 04/23/20 02:30 101 H 97 04/23/20 02:01 105 H 129/81 04/23/20 02:00 100 H
--- NOTE | 2020-04-23 14:33 | Cardiology Progress Note ---
Date of Service April 23, 2020 Assessment & Plan (1) Cardiac arrest: Status post [id number] cardiac arrest with uncertain downtime currently completing Arctic protocol with patient now awake and extubated moderately confused but conversant Hepatic enzymes trending downward, no tachyarrhythmias, hemodynamically stable Heart rates still elevated Echocardiogram demonstrates moderate left ear dysfunction EF 3035% with dyssynergy septum Plan: Increase metoprolol IV to 7.5 mg every 4 hours until able to convert to oral Patient will require pacer defibrillator with tentative plan for Thursday Await to resume anticoagulation with warfarin Discussed in detail with Disposition will likely require rehab stay given cognitive issues and recent event (2) Ventricular fibrillation: (3) Left bundle branch block: (4) A-fib: (5) On warfarin therapy: (6) AIVR (accelerated idioventricular rhythm): Cardiology will continue to follow patient during hospitalization Subjective Patient seen and examined, chart, medications, telemetry reviewed Patient remains awake and alert though moderately disoriented No chest pains or discomfort Currently afebrile Remains in atrial fibrillation with elevated ventricular response rate Review of Systems Review of Systems: Unobtainable due to cognitive status Physical Exam Constitutional: well developed and well nourished; no acute distress Eyes: PERRL, conjunctivae normal, anicteric sclerae ENMT: external ear and nose normal, oropharynx normal Neck: trachea midline, no thyromegaly Respiratory: normal respiratory effort, lungs clear to auscultation Cardiovascular: Rate/Rhythm: + irregularly irregular Heart Sounds: normal S1 and normal S2 Palpation: normal PMI Vessels: no JVD Extremities: normal capillary refill Gastrointestinal (Abdomen): normal bowel sounds, soft, nontender, no hepatosplenomegaly Musculoskeletal: no cyanosis or clubbing, extremities motor strength 5/5 Results & Data Vital Signs (Past 12 Hours) Vital Signs Pulse BP Pulse Ox 04/23/20 12:01 103 H 145/95 H 96 04/23/20 12:00 105 H 96 04/23/20 11:45 97 H 96 04/23/20 11:37 115 H 158/83 H 04/23/20 11:30 119 H 92 04/23/20 11:15 93 H 95 04/23/20 11:02 108 H 158/93 H 95 04/23/20 11:00 113 H 94 04/23/20 10:45 106 H 95 04/23/20 10:37 100 H 162/107 H 96 04/23/20 10:34 106 H 152/103 H 94 04/23/20 10:30 118 H 92 04/23/20 10:27 100 H 172/82 H 97 04/23/20 10:15 110 H 97 04/23/20 10:01 94 H 145/97 H 97 04/23/20 10:00 102 H 97 04/23/20 09:45 99 H 95 04/23/20 09:30 92 H 95 04/23/20 09:15 106 H 91 04/23/20 09:01 98 H 152/92 H 94 04/23/20 09:00 93 H 94 04/23/20 08:45 87 95 04/23/20 08:30 91 H 95 04/23/20 08:15 101 H 97 04/23/20 08:10 105 H 151/85 H 04/23/20 08:01 95 H 151/85 H 94 04/23/20 08:00 96 H 95 04/23/20 07:45 99 H 97 04/23/20 07:30 102 H 96 04/23/20 07:15 111 H 95 04/23/20 07:02 104 H 95 04/23/20 07:01 94 H 149/100 H 95 04/23/20 07:00 104 H 95 04/23/20 06:30 107 H 96 04/23/20 06:01 117 H 148/88 H 04/23/20 06:00 107 H 04/23/20 05:30 107 H 96 04/23/20 05:01 92 H 158/93 H 98 04/23/20 05:00 94 H 95 04/23/20 04:51 96 H 165/79 H 04/23/20 04:30 105 H 97 04/23/20 04:01 103 H 165/79 H 94 04/23/20 04:00 112 H 94 04/23/20 03:30 104 H 96 04/23/20 03:01 100 H 152/92 H 94 04/23/20 03:00 102 H 94 Laboratory Results Laboratory Results - last 24 hr 04/20/20 04/22/20 04/23/20 12:01 17:07 00:21 WBC RBC Hgb Hct MCV MCH MCHC RDW Std Deviation RDW Coeff of Charles Plt Count MPV Immature Gran % (Auto) Neut % (Auto) Lymph % (Auto) [place] % (Auto) Eos % (Auto) Baso % (Auto) Immature Gran # (Auto) Neut # (Auto) Lymph # (Auto) [place] # (Auto) Eos # (Auto) Baso # (Auto) PT INR Sodium Potassium Chloride Carbon Dioxide Anion Gap BUN Creatinine Est Cr Clr Drug Dosing Est GFR ( Amer) Est GFR (Non-Af Amer) BUN/Creatinine Ratio Glucose POC Glucose 97 83 POC Glucose (other) 142 H Calcium Phosphorus Magnesium Total Bilirubin AST ALT Alkaline Phosphatase Total Protein Albumin Globulin Albumin/Globulin Ratio Procalcitonin Urine Color Urine Appearance Urine pH Ur Specific [place] Urine Protein Urine Glucose (UA) Urine Ketones Urine Blood Urine Nitrite Urine Bilirubin Urine Urobilinogen Ur Leukocyte Esterase Urine WBC (Auto) Urine RBC (Auto) U Hyaline Cast (Auto) U Epithel Cells (Auto) Urine Bacteria (Auto) 04/23/20 04/23/20 04/23/20 04:26 04:26 05:57 WBC 6.91 RBC 3.89 L Hgb 12.0 L Hct 36.5 L MCV 93.8 MCH 30.8 MCHC 32.9 RDW Std Deviation 47.6 H RDW Coeff of Charles 14.0 Plt Count 223 MPV 9.9 Immature Gran % (Auto) 0.3 Neut % (Auto) 75.0 Lymph % (Auto) 12.9 [place] % (Auto) 11.7 Eos % (Auto) 0.0 Baso % (Auto) 0.1 Immature Gran # (Auto) 0.02 Neut # (Auto) 5.18 Lymph # (Auto) 0.89 L [place] # (Auto) 0.81 H Eos # (Auto) 0.00 Baso # (Auto) 0.01 PT INR Sodium 143 Potassium 3.8 Chloride 111 H Carbon Dioxide 25 Anion Gap 7.0 BUN 19 H Creatinine 0.84 Est Cr Clr Drug Dosing 110.5 Est GFR ( Amer) 106.5 Est GFR (Non-Af Amer) 91.9 BUN/Creatinine Ratio 23.1 H Glucose 88 POC Glucose 90 POC Glucose (other) Calcium 8.6 Phosphorus 2.2 L Magnesium 1.8 Total Bilirubin 0.9 D AST 83 H ALT 200 H Alkaline Phosphatase 44 L Total Protein 5.9 L Albumin 2.9 L Globulin 3.0 Albumin/Globulin Ratio 1.0 Procalcitonin Urine Color Urine Appearance Urine pH Ur Specific [place] Urine Protein Urine Glucose (UA) Urine Ketones Urine Blood Urine Nitrite Urine Bilirubin Urine Urobilinogen Ur Leukocyte Esterase Urine WBC (Auto) Urine RBC (Auto) U Hyaline Cast (Auto) U Epithel Cells (Auto) Urine Bacteria (Auto) 04/23/20 04/23/20 04/23/20 08:03 08:07 12:03 WBC RBC Hgb Hct MCV MCH MCHC RDW Std Deviation RDW Coeff of Charles Plt Count MPV Immature Gran % (Auto) Neut % (Auto) Lymph % (Auto) [place] % (Auto) Eos % (Auto) Baso % (Auto) Immature Gran # (Auto) Neut # (Auto) Lymph # (Auto) [place] # (Auto) Eos # (Auto) Baso # (Auto) PT 13.9 H INR 1.3 H Sodium Potassium Chloride Carbon Dioxide Anion Gap BUN Creatinine Est Cr Clr Drug Dosing Est GFR ( Amer) Est GFR (Non-Af Amer) BUN/Creatinine Ratio Glucose POC Glucose 106 H POC Glucose (other) Calcium Phosphorus Magnesium Total Bilirubin AST ALT Alkaline Phosphatase Total Protein Albumin Globulin Albumin/Globulin Ratio Procalcitonin 0.51 H Urine Color Urine Appearance Urine pH Ur Specific [place] Urine Protein Urine Glucose (UA) Urine Ketones Urine Blood Urine Nitrite Urine Bilirubin Urine Urobilinogen Ur Leukocyte Esterase Urine WBC (Auto) Urine RBC (Auto) U Hyaline Cast (Auto) U Epithel Cells (Auto) Urine Bacteria (Auto) 04/23/20 12:48 WBC RBC Hgb Hct MCV MCH MCHC RDW Std Deviation RDW Coeff of Charles Plt Count MPV Immature Gran % (Auto) Neut % (Auto) Lymph % (Auto) [place] % (Auto) Eos % (Auto) Baso % (Auto) Immature Gran # (Auto) Neut # (Auto) Lymph # (Auto) [place] # (Auto) Eos # (Auto) Baso # (Auto) PT INR Sodium Potassium Chloride Carbon Dioxide Anion Gap BUN Creatinine Est Cr Clr Drug Dosing Est GFR ( Amer) Est GFR (Non-Af Amer) BUN/Creatinine Ratio Glucose POC Glucose POC Glucose (other) Calcium Phosphorus Magnesium Total Bilirubin AST ALT Alkaline Phosphatase Total Protein Albumin Globulin Albumin/Globulin Ratio Procalcitonin Urine Color Dark Yellow Urine Appearance Clear Urine pH 5.5 Ur Specific [place] 1.036 H Urine Protein 1+ H Urine Glucose (UA) Negative Urine Ketones 2+ H Urine Blood 1+ H Urine Nitrite Negative Urine Bilirubin Negative Urine Urobilinogen Negative Ur Leukocyte Esterase Negative Urine WBC (Auto) 5-10 H Urine RBC (Auto) 10-30 H U Hyaline Cast (Auto) 1-5 U Epithel Cells (Auto) 20-30 H Urine Bacteria (Auto) Negative
[2020-04-23] MEDS ORDERED: WARFARIN SOD 1 MG TAB PO SCH (16:00)
[2020-04-23] MEDS: METOPROLOL TARTRATE 25 MG TAB PO SCH ×2 (16:46→21:25)
[2020-04-23] MEDS: HEPARIN SOD 5,000 UNIT/0.5 ML VIAL SQ SCH ×2 (16:46→21:25)
[2020-04-24 05:16] LABS: Basophils # (auto) 0.01 K/uL (0-0.2); Basophils % (auto) 0.1 %; Eosinophils # (auto) 0.03 K/uL (0-0.5); Eosinophils % (auto) 0.4 %; Hematocrit (blood only) 34.7 % (42-52); Hemoglobin 11.8 g/dL (14.0-18.0); Immature Granulocytes # (auto) 0.01 K/uL (0.00-0.02); Immature Granulocytes % (auto) 0.1 %; Lymphocytes # (auto) 1.25 K/uL (1.2-3.4); Lymphocytes % (auto) 17.6 %; Mean Corpuscular Hemoglobin 31.2 pg (25-34); Mean Corpuscular Volume 91.8 fL (80-100); Mean Platelet Volume 10.1 fL (7.4-10.4); Monocytes # (auto) 0.87 K/uL (0.11-0.59); Monocytes % (auto) 12.2 %; Neutrophils # (auto) 4.95 K/uL (1.4-6.5); Neutrophils % (auto) 69.6 %; Platelet Count 235 K/uL (130-400); RDW Coefficient of Variation 13.5 % (11.5-14.5); Red Blood Count 3.78 M/uL (4.7-6.1); White Blood Count 7.12 K/uL (4.8-10.8)
[2020-04-24 05:43] LABS: INR 1.2 (0.9-1.1)
[2020-04-24 05:46] LABS: Albumin Level 2.8 gm/dl (3.4-5.0); Calcium 8.4 mg/dl (8.5-10.1); Est GFR (African American) 109.8; Est GFR (Non-African American) 94.7; Magnesium 1.9 mg/dl (1.8-2.4); Potassium 3.7 mmol/L (3.5-5.1)
[2020-04-24 05:49] LABS: Albumin Globulin Ratio 0.9 (0.9-2); Bilirubin,Total 1.1 mg/dl (0.2-1); Globulin 3.2 gm/dl (2.5-4.0); Phosphorus 2.3 mg/dl (2.5-4.9)
[2020-04-24] MEDS: HEPARIN SOD 5,000 UNIT/0.5 ML VIAL SQ SCH ×3 (06:13→21:17)
[2020-04-24] MEDS: METOPROLOL TARTRATE 25 MG TAB PO SCH (07:54)
[2020-04-24] MEDS: FAMOTIDINE 20 MG in SYRINGE 3 ML IV SCH ×2 (10:36→21:15)
[2020-04-24] MEDS: LOSARTAN POTASSIUM 25 MG TAB PO SCH (10:36)
[2020-04-24] MEDS ORDERED: lisinopriL 5 MG TAB PO SCH (11:30)
[2020-04-24] MEDS: ACETAMINOPHEN 500 MG TAB PO PRN ×2 (11:41→21:16)
[2020-04-24] MEDS: METOPROLOL TARTRATE 50 MG TAB PO SCH ×3 (11:42→21:17)
--- NOTE | 2020-04-24 12:13 | Cardiology Progress Note ---
Date of Service April 24, 2020 Assessment & Plan (1) Cardiac arrest: Status post [id number] cardiac arrest with uncertain downtime currently completing Arctic protocol with patient now awake and extubated moderately confused but conversant Hepatic enzymes trending downward, no tachyarrhythmias, hemodynamically stable Heart rates still elevated Echocardiogram demonstrates moderate left ventricular dysfunction EF 30-35% with dyssynergy septum Plan: Patient now resuming oral medications we will increase metoprolol tartrate to 50 mg 3 times daily for heart rate and blood pressure control. Restart losartan at 25 mg p.o. daily with topical nitrates 1/2 inch every 6 for further blood pressure control. May consider low-dose clonidine given anoxic injury Will tentative plan for possible pacer defibrillator on Thursday afternoon but will need to follow with temperature curve closely. Will order chest x-ray for today given elevation in temperature Disposition will likely require rehab stay given cognitive issues and recent event (2) Ventricular fibrillation: (3) Mild anoxic-ischemic encephalopathy: Will need family aid in discussion of upcoming procedures/pacer defibrillator insertion (4) Left bundle branch block: (5) A-fib: (6) On warfarin therapy: Subjective Patient seen and examined, chart, medications, telemetry reviewed Patient awake conversant with periods of disorientation No chest pains or discomfort Low-grade temperature this a.m. Remains in atrial fibrillation with elevated ventricular response rate, blood pressures increasing Telemetry without ventricular arrhythmia or pause Physical Exam Constitutional: well developed and well nourished; no acute distress Eyes: PERRL, conjunctivae normal, anicteric sclerae ENMT: external ear and nose normal, oropharynx normal Neck: trachea midline, no thyromegaly Respiratory: normal respiratory effort, lungs clear to auscultation Cardiovascular: Rate/Rhythm: + irregularly irregular Heart Sounds: normal S1 and normal S2 Palpation: normal PMI Vessels: no JVD Extremities: normal capillary refill Gastrointestinal (Abdomen): normal bowel sounds, soft, nontender, no hepatosplenomegaly Musculoskeletal: no cyanosis or clubbing, extremities motor strength 5/5 Results & Data Vital Signs (Past 12 Hours) Vital Signs Temp Pulse Pulse Resp BP BP BP 04/24/20 11:27 38.6 C H 118 H 18 176/106 H 155/105 H 04/24/20 11:24 04/24/20 08:00 127 H 16 04/24/20 07:02 94 H 172/93 H 04/24/20 07:00 94 H Pulse Ox 04/24/20 11:27 96 04/24/20 11:24 85 L 04/24/20 08:00 93 04/24/20 07:02 95 04/24/20 07:00 95
--- NOTE | 2020-04-24 12:56 | XRay Report ---
XR chest 1V portable CLINICAL HISTORY: fever, s/p mech ventilation COMPARISON STUDY: 04/23/2020 FINDINGS: The heart is enlarged. There are bilateral pleural effusions with associated basilar airspa ce opacities. There is increased density the right hilum. Perihilar airspace opacities cannot be excl uded. There is mild vascular prominence.[ IMPRESSION: 1. Cardiomegaly and slight increase in the bilateral pleural effusions 2. Basilar opacity statistically representing compressive atelectasis 3. Mild vascular prominence 4. Increased density of the right hilum. Perihilar airspace opacities cannot be excluded. ACT 112: Negative or not required by law. Electronically signed by: Jules Ward M.D. 04/24/2020 12:54 PM
[2020-04-24] MEDS: NITROGLYCERIN 2% OINTMENT 30GM TUBE EXT SCH ×2 (14:05→18:23)
--- NOTE | 2020-04-24 19:08 | Hospitalist Progress Note ---
Date of Service April 24, 2020 Assessment & Plan (1) Cardiac arrest: S/P cardiac arrest unknown etiology Successful CPR with return of spontaneous circulation post defibrillation. Was Intubated/sedated on Francisco support S/P extubated day 2 Completed hypothermia protocol S/P cardiac cath showed no significant blockage Continue PT/OT Clinically improves Ventricular Fibrillation Afib ECHO showed ejection fraction of 20 to 25% Amiodarone on hold due to bradycardia Continue to hold coumadin as per cardio for now due to anticipate for ICD placement Cardiology on board Consider biventricular ICD implantation once stable by electrophysiology Metoprolol increased to 50mg TID Repeat ECHO showed moderate LV hypokinesis. EF 30-35 % CRYSTAL Mostly due to hypovolemia due to cardiac arrest Creatinine on admission 1.8 Creatinine normalized 0.7 Resolved Hypotension Levophed drip discontinued Continue monitor BP Resolved Transaminitis ALT and ALT 698 and 569 respectively on admission Liver enzymes continue to trend down with AST 49 and ALT 143 Continue monitor LFTs. Confusion Mostly due to post cardiac arrest CT head showed no acute intracranial abnormality No focal neuro deficit Consider neuro eval if symptoms does not improve Clinically improves Hyperglycemia Hba1c 5.6 on 04/20/20 On insulin drip ICU protocol BS has been stable Questionable R Upper Lobe Infiltrate possible related to aspiration Repeat CXR showed increase in pulmonary vasculature suggesting mild congestive failure. lactic acid elevated on admission WBC and procalcitonin normal and afebrile Unasyn discontinued Elevated Lactate Mostly related to the cardiac arrest Lactate on admission 5.2 Procalcitonin and WBC WNL Lactate normalized Fever No Leukocytosis CXR showed increased density of the right hilum. Perihilar airspace opacities cannot be excluded. repeat Blood cx collected pending Will add cefdinir for now since there is increase density seen in the CXR Continue monitor closely Supratherapeutic INR Coumadin peaked to 6.1 Coumadin on hold INR 1.2 today DVT px INR 1.2 today CODE status Full code Disposition Continue monitor in tele Continue PT/OT Consider rehab if no improvement Admission and Anticipated Discharge Date Admission Date: April 19, 2020 Subjective Pt was seen and examined Sitting in chair with no distress Pt is more awake today and make more sense today Denies any chest pain, palpitation and SOB Physical Exam Physical Exam: General- No acute distress Head- atraumatic ENT- Extubated Neck- supple, no JVD Lungs- no wheezing Heart- Irregular, no murmur Abdomen- normal bowel sounds, soft, nontender Extremities- no calf tenderness Neuro- Moves all 4 extremities, follow commands Skin- warm & dry Results & Data Results & Data ([facility]) Vital Signs (Past 12 Hours) Vital Signs Temp Pulse Pulse Resp BP BP BP 04/24/20 16:16 38.5 C H 105 H 27 H 137/89 04/24/20 13:58 138/94 04/24/20 11:27 38.6 C H 118 H 18 176/106 H 155/105 H 04/24/20 11:24 04/24/20 08:00 127 H 16 04/24/20 07:02 94 H 172/93 H Pulse Ox 04/24/20 16:16 96 04/24/20 13:58 04/24/20 11:27 96 04/24/20 11:24 85 L 04/24/20 08:00 93 04/24/20 07:02 95
[2020-04-24] MEDS: CEFDINIR 300 MG CAP PO SCH (21:16)
[2020-04-24] MEDS ORDERED: FUROSEMIDE 20 MG in SYRINGE 0 ML IV ONE (21:30)
[2020-04-25] MEDS: NITROGLYCERIN 2% OINTMENT 30GM TUBE EXT SCH ×5 (00:09→23:41)
[2020-04-25 04:30] LABS: Basophils # (auto) 0.02 K/uL (0-0.2); Basophils % (auto) 0.3 %; Eosinophils # (auto) 0.08 K/uL (0-0.5); Eosinophils % (auto) 1.1 %; Hematocrit (blood only) 35.9 % (42-52); Hemoglobin 11.9 g/dL (14.0-18.0); Immature Granulocytes # (auto) 0.02 K/uL (0.00-0.02); Immature Granulocytes % (auto) 0.3 %; Lymphocytes % (auto) 20.9 %; Mean Corpuscular Hemoglobin 30.9 pg (25-34); Mean Corpuscular Hgb Conc 33.1 g/dL (32-36); Mean Corpuscular Volume 93.2 fL (80-100); Mean Platelet Volume 9.7 fL (7.4-10.4); Monocytes # (auto) 1.17 K/uL (0.11-0.59); Monocytes % (auto) 16.3 %; Neutrophils # (auto) 4.37 K/uL (1.4-6.5); Neutrophils % (auto) 61.1 %; Platelet Count 247 K/uL (130-400); RDW Coefficient of Variation 13.7 % (11.5-14.5); RDW Standard Deviation 46.4 fL (36.4-46.3); Red Blood Count 3.85 M/uL (4.7-6.1); White Blood Count 7.16 K/uL (4.8-10.8)
[2020-04-25 04:39] LABS: INR 1.2 (0.9-1.1); Prothrombin Time 12.5 Seconds (9.0-12.0)
[2020-04-25 04:49] LABS: Albumin Level 2.8 gm/dl (3.4-5.0); BUN Creatinine Ratio 18.7 (10-20); Calcium 8.5 mg/dl (8.5-10.1); Creatinine Clr Calc Pharmacy 111.8 ml/min; Est GFR (Non-African American) 92.3; Magnesium 1.8 mg/dl (1.8-2.4); Potassium 4.2 mmol/L (3.5-5.1)
[2020-04-25 04:58] LABS: Albumin Globulin Ratio 0.8 (0.9-2); Bilirubin,Total 0.8 mg/dl (0.2-1); Globulin 3.4 gm/dl (2.5-4.0); Total Protein 6.2 gm/dl (6.4-8.2)
[2020-04-25] MEDS: HEPARIN SOD 5,000 UNIT/0.5 ML VIAL SQ SCH (05:37)
[2020-04-25] MEDS: ACETAMINOPHEN 500 MG TAB PO PRN ×2 (05:49→21:16)
[2020-04-25] MEDS: FAMOTIDINE 20 MG in SYRINGE 3 ML IV SCH (08:35)
[2020-04-25] MEDS: METOPROLOL TARTRATE 50 MG TAB PO SCH (08:35)
[2020-04-25] MEDS: CEFDINIR 300 MG CAP PO SCH ×2 (08:36→20:23)
[2020-04-25] MEDS: LOSARTAN POTASSIUM 25 MG TAB PO SCH (08:36)
--- NOTE | 2020-04-25 10:05 | Hospitalist Progress Note ---
Date of Service April 25, 2020 Assessment & Plan Admission and Anticipated Discharge Date Admission Date: April 19, 2020 Subjective ATTENDING ADDENDUM : pt admitted with out of hospital cardiac arrest recovering continues to spike temp with Tmax 38.6 yesterday no clear cut source of infection ordered for d dimer/ check rapid COVID 19 test -in hospital testing Laurie Mcrae MD Results & Data Results & Data ([facility]) Vital Signs (Past 12 Hours) Vital Signs Temp Pulse Resp BP BP Pulse Ox 04/25/20 08:05 37.9 C H 101 H 18 146/88 H 94 04/25/20 05:00 37.1 C 89 18 134/86 94 04/25/20 00:07 95 H 155/87 H
--- NOTE | 2020-04-25 11:29 | Cardiology Progress Note ---
Date of Service April 25, 2020 Assessment & Plan (1) Cardiac arrest: Status post [id number] cardiac arrest with uncertain downtime currently completing Arctic protocol with patient now awake and extubated moderately confused but conversant Hepatic enzymes trending downward, no tachyarrhythmias, hemodynamically stable Heart rates still elevated Echocardiogram demonstrates moderate left ventricular dysfunction EF 30-35% with dyssynergy septum Plan: Change metoprolol tartrate to metoprolol succinate 100 mg twice daily. Plan pacer defibrillator biventricular today Will increase losartan to 50 mg every morning for hypertension. In interim continue topical nitrates. Patient may benefit from low-dose clonidine patch depending on clinical (2) Ventricular fibrillation: (3) Mild anoxic-ischemic encephalopathy: Will need family aid in discussion of upcoming procedures/pacer defibrillator insertion Anticipate rehab needs (4) Left bundle branch block: (5) A-fib: (6) On warfarin therapy: Will resume after pacer defibrillator placed Subjective Without source Patient was seen and examined, chart, medications, telemetry reviewed Patient sitting out of bed in chair without complaint. Heart rate still trending high despite increased medications likely centrally mediated No chest pains or shortness of breath edema improved Low-grade temperature without source, blood cultures negative, COVID negative, white cell count not elevated. Question adrenergic drive Physical Exam Constitutional: well developed and well nourished; no acute distress Eyes: PERRL, conjunctivae normal, anicteric sclerae ENMT: external ear and nose normal, oropharynx normal Neck: trachea midline, no thyromegaly Respiratory: normal respiratory effort, lungs clear to auscultation Cardiovascular: Rate/Rhythm: + irregularly irregular Heart Sounds: normal S1 and normal S2 Palpation: normal PMI Vessels: no JVD Extremities: normal capillary refill; no edema Gastrointestinal (Abdomen): normal bowel sounds, soft, nontender, no hepatosplenomegaly Musculoskeletal: no cyanosis or clubbing, extremities motor strength 5/5 Results & Data Vital Signs (Past 12 Hours) Vital Signs Temp Pulse Resp BP BP Pulse Ox 04/25/20 08:05 37.9 C H 101 H 18 146/88 H 94 04/25/20 05:00 37.1 C 89 18 134/86 94 04/25/20 00:07 95 H 155/87 H Laboratory Results Laboratory Results - last 24 hr 04/24/20 04/25/2020 16:11 00:01 04:14 WBC 7.16 RBC 3.85 L Hgb 11.9 L Hct 35.9 L MCV 93.2 MCH 30.9 MCHC 33.1 RDW Std Deviation 46.4 H RDW Coeff of Charles 13.7 Plt Count 247 MPV 9.7 Immature Gran % (Auto) 0.3 Neut % (Auto) 61.1 Lymph % (Auto) 20.9 [place] % (Auto) 16.3 Eos % (Auto) 1.1 Baso % (Auto) 0.3 Immature Gran # (Auto) 0.02 Neut # (Auto) 4.37 Lymph # (Auto) 1.50 [place] # (Auto) 1.17 H Eos # (Auto) 0.08 Baso # (Auto) 0.02 PT INR Sodium Potassium Chloride Carbon Dioxide Anion Gap BUN Creatinine Est Cr Clr Drug Dosing Est GFR ( Amer) Est GFR (Non-Af Amer) BUN/Creatinine Ratio Glucose POC Glucose 104 H 102 H Calcium Phosphorus Magnesium Total Bilirubin AST ALT Alkaline Phosphatase Total Protein Albumin Globulin Albumin/Globulin Ratio Procalcitonin COVID-19 PCR 04/25/20 04/25/20 04/25/20 04:14 04:14 04:14 WBC RBC Hgb Hct MCV MCH MCHC RDW Std Deviation RDW Coeff of Charles Plt Count MPV Immature Gran % (Auto) Neut % (Auto) Lymph % (Auto) [place] % (Auto) Eos % (Auto) Baso % (Auto) Immature Gran # (Auto) Neut # (Auto) Lymph # (Auto) [place] # (Auto) Eos # (Auto) Baso # (Auto) PT 12.5 H INR 1.2 H Sodium 143 Potassium 4.2 Chloride 111 H Carbon Dioxide 29 Anion Gap 3.0 BUN 16 Creatinine 0.83 Est Cr Clr Drug Dosing 111.8 Est GFR ( Amer) 107.0 Est GFR (Non-Af Amer) 92.3 BUN/Creatinine Ratio 18.7 Glucose 97 POC Glucose Calcium 8.5 Phosphorus 3.0 Magnesium 1.8 Total Bilirubin 0.8 AST 34 ALT 112 H Alkaline Phosphatase 45 Total Protein 6.2 L Albumin 2.8 L Globulin 3.4 Albumin/Globulin Ratio 0.8 L Procalcitonin 0.22 COVID-19 PCR 04/25/20 04/25/20 06:26 09:10 WBC RBC Hgb Hct MCV MCH MCHC RDW Std Deviation RDW Coeff of Charles Plt Count MPV Immature Gran % (Auto) Neut % (Auto) Lymph % (Auto) [place] % (Auto) Eos % (Auto) Baso % (Auto) Immature Gran # (Auto) Neut # (Auto) Lymph # (Auto) [place] # (Auto) Eos # (Auto) Baso # (Auto) PT INR Sodium Potassium Chloride Carbon Dioxide Anion Gap BUN Creatinine Est Cr Clr Drug Dosing Est GFR ( Amer) Est GFR (Non-Af Amer) BUN/Creatinine Ratio Glucose POC Glucose 96 Calcium Phosphorus Magnesium Total Bilirubin AST ALT Alkaline Phosphatase Total Protein Albumin Globulin Albumin/Globulin Ratio Procalcitonin COVID-19 PCR NEGATIVE
[2020-04-25] MEDS ORDERED: METOPROLOL SUCC 50MG EXT REL TAB PO ONE (12:00)
[2020-04-25 12:03] LABS: D Dimer 3490 ug/L FEU (0-500)
[2020-04-25] MEDS: ENOXAPARIN INJ 40 MG/0.4 ML SYR SQ SCH (12:46)
--- NOTE | 2020-04-25 14:05 | Ultrasound Report ---
BILATERAL LOWER EXTREMITY VENOUS DOPPLER HISTORY: Acute pain and swelling of the lower extremities evaluation for DVT COMPARISON STUDY: None. FINDINGS: There is normal compressibility, flow, and augmentation within the bilateral lower extremit y deep venous systems. IMPRESSION: No DVT within the right or left lower extremity. ACT 112: Negative or not required by law. Electronically signed by: Abhilash Paz M.D. 04/25/2020 2:04 PM
--- NOTE | 2020-04-25 14:21 | History & Physical Bridge Note ---
Date of Service April 25, 2020 History & Physical Bridge Note I have examined the patient, reviewed the History & Physical and in the interval since the performance of the History & Physical I have noted the following changes of clinical significance: Pt survived a cardiac arrest; he is for a BiV ICD; consents obtained over the phone with his
--- NOTE | 2020-04-25 14:21 | Pre Anesthesia Assessment ---
Date of Service April 25, 2020 Pre Sedation Assessment Vital Signs Temp Pulse Resp BP BP Pulse Ox 04/25/20 08:05 37.9 C H 101 H 18 146/88 H 94 04/25/20 05:00 37.1 C 89 18 134/86 94 04/25/20 00:07 95 H 155/87 H 04/24/20 19:25 38.4 C H 107 H 19 146/108 H 156/107 H 93 04/24/20 16:16 38.5 C H 105 H 27 H 137/89 96 Cardiovascular + tachycardic and + irregularly irregular Respiratory normal respiratory effort, lungs clear to auscultation Pre-Sedation Airway Assessment Smoking Status: Never smoker Hx Sleep Apnea: No Hx Difficult Intubation: No Short, Thick Neck: Yes Thyromental Distance: < 3.5 Finger Breadths Mallampati Class: III ASA: ASA3 NPO Status Date of Last Intake of Fluids: 04/24/20 Date of Last Intake of Solid Food: 04/24/20 Procedure Planning Contraindications for Sedation: none Current Medications Reviewed: Yes Notes The planned sedation has been discussed with the patient. Informed Consent was obtained. I have identified the patient, determined the appropriateness of sedation and have assessed the patient immediately prior to the procedure. All medicine(s) and interventions are by my order.
[2020-04-25] MEDS ORDERED: LIDOCAINE HCL 1% 20 ML VIAL ONE (14:26)
[2020-04-25] MEDS ORDERED: BUPIVACAINE 0.25% 30 ML VIAL ONE (14:26)
[2020-04-25] MEDS ORDERED: BACITRACIN INJ 50,000 UNIT VIAL ONE (14:27)
[2020-04-25] MEDS ORDERED: MIDAZOLAM HCL 5 MG/ML 1 ML VIAL ONE ×2 (14:40→16:02)
[2020-04-25] MEDS ORDERED: CEFAZOLIN 250 MG/ML 1 GM VIAL ONE (14:41)
[2020-04-25] MEDS ORDERED: fentaNYL citrate 100 MCG/2 ML VIAL ONE ×3 (14:41→16:56)
--- NOTE | 2020-04-25 16:26 | Hospitalist Progress Note ---
Date of Service April 25, 2020 Assessment & Plan (1) Cardiac arrest: S/P cardiac arrest unknown etiology Successful CPR with return of spontaneous circulation post defibrillation/ S/P emergent cardiac cath showed no significant blockage Was Intubated/sedated on Francisco support/hypothermia protocol S/P extubated Ventricular Fibrillation ECHO showed ejection fraction of 20 to 25% Amiodarone on hold due to bradycardia s/p biventricular ICD implantation today Metoprolol increased to 100 mg BID ECHO showed moderate LV hypokinesis. EF 30-35 % CRYSTAL resolved Mostly due to hypovolemia due to cardiac arrest Creatinine on admission 1.8 Creatinine normalized 0.7 Resolved HTN: cont on beta rafaela /losartan Low grade temp : Low-grade temperature without source, blood cultures negative, COVID 19 negative, normal WBC on cefdinir for possible rt lung infiltrate Metabolic encephalopahty : confusion Mostly due to post cardiac arrest CT head showed no acute intracranial abnormality No focal neuro deficit Clinically improves Type 2 DM : Hba1c 5.6 on 04/20/20 insulin SSI Questionable R Upper Lobe Infiltrate possible related to aspiration Repeat CXR showed increase in pulmonary vasculature suggesting mild congestive failure. on cefdinir Elevated Lactate Mostly related to the cardiac arrest Lactate on admission 5.2 Procalcitonin and WBC WNL Lactate normalized Supratherapeutic INR Coumadin peaked to 6.1 Coumadin on hold will be resumed post AICD placement CODE status Full code DVT PROPHYLAXIS : sub q heparin Disposition will need PT/OT may need rehab for deconditioning Admission and Anticipated Discharge Date Admission Date: April 19, 2020 Subjective s/p AICD placement today no complain of chest pain or SOB Physical Exam Constitutional: WD/WN, vitals as above no acute distress Eyes: PERRL, conjunctivae normal, anicteric sclerae ENMT: external ear and nose normal, oropharynx normal Respiratory: normal respiratory effort, lungs clear to auscultation Cardiovascular: RRR, no murmur, no edema Musculoskeletal: left upper chest wall AICD placement site intact , dressing present , Neurologic: + does not move all extremities and no focal motor deficits Speech / Cognition: normal speech Psychiatric: A+Ox3, euthymic affect Results & Data Results & Data ([facility]) Vital Signs (Past 12 Hours) Vital Signs Temp Pulse Resp BP BP Pulse Ox 04/25/20 08:05 37.9 C H 101 H 18 146/88 H 94 04/25/20 05:00 37.1 C 89 18 134/86 94
--- NOTE | 2020-04-25 17:31 | Operative Report ---
Post Operative Report Pre & Post Diagnosis cardiac arrest and NICM and permanent AF Operation Date: 04/19/20 22:30 <No data on this case meets the specified criteria> Operation Date: 04/25/20 14:00 <No data on this case meets the specified criteria> I identified the patient and participated in the time-out.: Yes Procedure Operation Date: 04/19/20 22:30 Actual Procedures p Cath, Left with Cors and Vent - Naldo Fernandes MD s Cineradiography w/Routine Exam - Naldo Fernandes MD Operation Date: 04/25/20 14:00 Actual Procedures p ICD Biventricular Implant - Ashlie Irene DO Surgeon Ashlie Irene DO Cream Beater none Estimated Blood Loss 30 Findings Consistent with Post-Op Diagnosis Specimens none Description of Procedure see official report I attest to the content of the Intraoperative Record and any orders documented therein. Any exceptions are noted below.
--- NOTE | 2020-04-25 17:31 | Post Anesthesia Assessment ---
Date of Service April 25, 2020 Post Sedation Assessment Vital Signs Temp Pulse Resp BP BP Pulse Ox 04/25/20 08:05 37.9 C H 101 H 18 146/88 H 94 04/25/20 05:00 37.1 C 89 18 134/86 94 04/25/20 00:07 95 H 155/87 H 04/24/20 19:25 38.4 C H 107 H 19 146/108 H 156/107 H 93 Recovery Score Activity: Moves 4 extremities Respiration: Deep Breath/Cough Circulation: +/-20% PreAnes Value Consciousness: Fully Awake Oxygen Saturation: > 92% On Room Air Discharge Sedation Level of Care: Fast Track Phase II Post Sedation Plan On clinical assessment, the patient appears to have tolerated the sedation without complications. Patient is recovering as anticipated. Patient will continue to be monitored by nursing and may be discharged when sedation discharge criteria are met per below protocol. Upon Completions of procedure up to 15 minutes continue every 5 minute vital signs and the P.A.R. score; then discharge to a Phase I or Fast Track to Phase II per the following guidelines: * Discharge Patient to appropriate Phase II area if PAR is 8 or greater or return to pre- procedure baseline. The post - procedure orders will be as directed. * If PAR score is less than 8 or not return to pre-procedure baseline then patient will follow Phase I monitoring till PAR is reached for Phase II. The Phase I may be done in procedure room or may call to secure a Phase I area. * If naloxone or flumazenil are used for reversal, hold in Phase I for continued monitoring from when last reversal dose was given for a minimum of 60 minutes or longer pending the nurse and/or physician discretion of patient condition before discharge to Phase II. Please call the Sedation Physician to re-evaluate and complete post-note for discharge to Phase II area. Do NOT discharge from procedure sedation or Phase 1 until post- sedation evaluation note is complete by procedure /sedation MD Sedation Discharge Instructions to be given to the patient at discharge to home.
[2020-04-25] MEDS: METOPROLOL SUCC 50MG EXT REL TAB PO SCH (17:56)
[2020-04-26] MEDS: ACETAMINOPHEN 500 MG TAB PO PRN ×2 (03:20→22:18)
[2020-04-26 05:05] LABS: Hematocrit (blood only) 34.3 % (42-52); Hemoglobin 11.8 g/dL (14.0-18.0); Mean Corpuscular Hemoglobin 31.1 pg (25-34); Mean Corpuscular Hgb Conc 34.4 g/dL (32-36); Mean Corpuscular Volume 90.3 fL (80-100); Mean Platelet Volume 9.4 fL (7.4-10.4); Platelet Count 208 K/uL (130-400); RDW Coefficient of Variation 13.4 % (11.5-14.5); RDW Standard Deviation 43.2 fL (36.4-46.3)
[2020-04-26] MEDS: NITROGLYCERIN 2% OINTMENT 30GM TUBE EXT SCH ×4 (05:06→23:10)
--- NOTE | 2020-04-26 07:48 | XRay Report ---
XR chest 2V PA/lateral HISTORY: 65 years-old Male post biv his bundle ICD status post placement of a left subclavian pacer/ AICD COMPARISON: Chest radiograph 04/24/2020 TECHNIQUE: PA and lateral views of the chest FINDINGS: Lateral view is limited secondary to upper extremity positioning. No pneumothorax. Small bilateral pl eural effusions. Bibasilar opacities. Pulmonary vascular congestion with mildly improved aeration of the lungs. Degenerative changes of the shoulders and spine. IMPRESSION: 1. Cardiomegaly with decreased pulmonary vascular congestion. 2. Status post placement of a left subclavian pacer/AICD. No postprocedural pneumothorax. 3. Small pleural effusions with mildly improved aeration of the lung bases. ACT 112: Negative or not required by law. The above report was generated using voice recognition software. It may contain grammatical, syntax o r spelling errors. Electronically signed by: Abhilash Paz M.D. 04/26/2020 7:47 AM
[2020-04-26] MEDS: METOPROLOL SUCC 50MG EXT REL TAB PO SCH ×2 (08:01→15:58)
[2020-04-26] MEDS: LOSARTAN POTASSIUM 50 MG TAB PO SCH (08:01)
[2020-04-26] MEDS: ENOXAPARIN INJ 40 MG/0.4 ML SYR SQ SCH (08:01)
[2020-04-26] MEDS: CEFDINIR 300 MG CAP PO SCH (08:01)
[2020-04-26] MEDS ORDERED: METOPROLOL SUCC 50MG EXT REL TAB PO ONE (10:19)
--- NOTE | 2020-04-26 11:16 | Cardiology Progress Note ---
Date of Service April 26, 2020 Assessment & Plan (1) Cardiac arrest: Status post [id number] cardiac arrest with uncertain downtime currently completing Arctic protocol with patient now awake and extubated moderately confused but conversant Hepatic enzymes trending downward, no tachyarrhythmias, hemodynamically stable Heart rates still elevated Echocardiogram demonstrates moderate left ventricular dysfunction EF 30-35% with dyssynergy septum Patient underwent by V pacer defibrillator implantation on 04/25/2020 with good tolerance Plan: Increase Toprol XL 150 mg p.o. twice daily for blood pressure and heart rate control, continue losartan We will resume anticoagulation with warfarin (2) Ventricular fibrillation: (3) Mild anoxic-ischemic encephalopathy: (4) Left bundle branch block: (5) A-fib: (6) On warfarin therapy: Subjective Patient seen and examined, chart, medications, telemetry reviewed. Patient answer questions appropriately only complaint mild tenderness at surgical incision. Overall feels improved. Mentation slowly clearing Physical Exam Constitutional: well developed and well nourished; no acute distress Eyes: PERRL, conjunctivae normal, anicteric sclerae ENMT: external ear and nose normal, oropharynx normal Neck: trachea midline, no thyromegaly Respiratory: normal respiratory effort, lungs clear to auscultation Auscultation: + bronchial breath sounds (Right-sided) Cardiovascular: Rate/Rhythm: + irregularly irregular Heart Sounds: normal S1 and normal S2 Palpation: normal PMI Vessels: no JVD Extremities: normal capillary refill; no edema Chest (Breasts): Chest: + pacemaker (Pacemaker defibrillator site bandaged without hematoma or drainage) Gastrointestinal (Abdomen): normal bowel sounds, soft, nontender, no hepatosplenomegaly Musculoskeletal: no cyanosis or clubbing, extremities motor strength 5/5 Results & Data Vital Signs (Past 12 Hours) Vital Signs Pulse Resp BP Pulse Ox 04/26/20 07:30 108 H 23 04/26/20 07:25 110 H 26 H 146/102 H 04/26/20 07:00 91 H 24 04/26/20 05:55 99 H 18 146/89 H 04/26/20 05:30 100 H 23 04/26/20 05:25 100 H 22 170/95 H 04/26/20 04:55 95 H 23 144/105 H 04/26/20 04:25 89 19 162/87 H 04/26/20 03:55 102 H 18 145/103 H 95 04/26/20 03:25 113 H 22 166/88 H 04/26/20 02:55 105 H 24 158/100 H 04/26/20 02:25 102 H 22 137/98 04/26/20 02:00 103 H 22 151/99 H 04/26/20 01:30 81 18 04/26/20 01:25 93 H 22 148/97 H 04/26/20 01:15 95 H 22 04/26/20 01:00 96 H 19 04/26/20 00:55 97 H 24 147/83 H 04/26/20 00:30 99 H 21 04/26/20 00:25 105 H 24 144/82 H 04/26/20 00:00 96 H 24 146/89 H 95 04/25/20 23:25 96 H 23 144/85 H Laboratory Results Laboratory Results - last 24 hr 04/25/20 04/25/20 04/25/20 09:10 11:23 11:52 WBC RBC Hgb Hct MCV MCH MCHC RDW Std Deviation RDW Coeff of Charles Plt Count MPV D-Dimer 3490 H* POC Glucose 91 COVID-19 PCR NEGATIVE 04/25/20 04/26/20 04/26/20 21:32 04:50 06:07 WBC 5.10 RBC 3.80 L Hgb 11.8 L Hct 34.3 L MCV 90.3 MCH 31.1 MCHC 34.4 RDW Std Deviation 43.2 RDW Coeff of Charles 13.4 Plt Count 208 MPV 9.4 D-Dimer POC Glucose 101 H 90 COVID-19 PCR
--- NOTE | 2020-04-26 13:21 | Cardioversion ---
Date of Service April 26, 2020 Electrical Cardioversion Rpt Electrical Cardioversion Report Indications: Atrial flutter with elevated ventricular response Procedure and risks were explained in detail, informed consent obtained. After confirmed TIMEOUT, patient sedated via anesthesia consult with continuous HR, BP, O2 sat monitor.' Synchronized electrical cardioversion was performed with serial 150, 200 J biphasic countershock with successful return to sinus rhythm. Post procedure patient aroused tolerating well. EKG: NSR @ 61 bpm, normal tracing QTc 485 Impression: Successful synchronized cardioversion. Plan: Continue same meds.
--- NOTE | 2020-04-26 15:37 | Hospitalist Progress Note ---
Date of Service April 26, 2020 Assessment & Plan (1) Cardiac arrest: S/P cardiac arrest unknown etiology out side hospital Successful CPR with return of spontaneous circulation post defibrillation/ S/P emergent cardiac cath showed no significant blockage Was Intubated/sedated on Francisco support/hypothermia protocol S/P extubated respiratory status stable remains in room air , no sob , [place] NON ISCHEMIC CARDIOMYOPATHY ECHO showed ejection fraction of 20 to 25% s/p biventricular ICD implantation ON 04/25/20 Metoprolol increased to 100 to 150 mg BID ECHO showed moderate LV hypokinesis. EF 30-35 % HX OF PAROXYSMAL AFIB : On beta rafaela Metoprolol 150 mg BID coumadin resumed after AICD placement HTN: bp elevated appreciate input from Cardiology on Losartan Metoprolol as above CRYSTAL resolved Mostly due to hypovolemia due to cardiac arrest Creatinine on admission 1.8 Creatinine normalized 0.7 Resolved HTN: cont on beta rafaela /losartan Low grade temp : Low-grade temperature without source, blood cultures negative, COVID 19 negative, normal WBC on cefdinir for possible rt lung infiltrate Metabolic encephalopahty : confusion Mostly due to post cardiac arrest CT head showed no acute intracranial abnormality No focal neuro deficit Clinically improves Type 2 DM : Hba1c 5.6 on 04/20/20 insulin SSI Questionable R Upper Lobe Infiltrate possible related to aspiration Repeat CXR showed increase in pulmonary vasculature suggesting mild congestive failure. on cefdinir Elevated Lactate Mostly related to the cardiac arrest Lactate on admission 5.2 Procalcitonin and WBC WNL Lactate normalized CODE status Full code DVT PROPHYLAXIS : sub q heparin Disposition will need PT/OT may need rehab for deconditioning Admission and Anticipated Discharge Date Admission Date: April 19, 2020 Subjective sitting up on chair no complain of shortness of breath , no chest pain on left arm sling ( s/p AICD placement on 04/25/20 ) complains of achiness at the AICD placement site low grade fever no cough Physical Exam Constitutional: WD/WN, vitals as above no acute distress Eyes: PERRL, conjunctivae normal, anicteric sclerae ENMT: external ear and nose normal, oropharynx normal Respiratory: normal respiratory effort, lungs clear to auscultation Cardiovascular: RRR, no murmur, no edema Musculoskeletal: left chest wall AICD placement site intact-no surrounding edema , no erythema or drainage Neurologic: PERRL, EOMI, accommodation nl, no face palsy, no dysarthria no focal motor deficits Speech / Cognition: normal speech Psychiatric: A+Ox3, euthymic affect Results & Data Results & Data ([facility]) Vital Signs (Past 12 Hours) Vital Signs Pulse Resp BP Pulse Ox 04/26/20 12:00 126 H 20 04/26/20 11:53 128 H 26 H 141/97 H 04/26/20 11:52 112 H 18 04/26/20 11:00 110 H 19 81 L 04/26/20 10:00 134 H 26 H 04/26/20 09:00 116 H 32 H 92 04/26/20 08:00 119 H 18 89 L 04/26/20 07:30 108 H 23 04/26/20 07:25 110 H 26 H 146/102 H 04/26/20 07:00 91 H 24 04/26/20 05:55 99 H 18 146/89 H 04/26/20 05:30 100 H 23 04/26/20 05:25 100 H 22 170/95 H 04/26/20 04:55 95 H 23 144/105 H 04/26/20 04:25 89 19 162/87 H 04/26/20 03:55 102 H 18 145/103 H 95
[2020-04-26] MEDS: WARFARIN SOD 2.5 MG TAB PO SCH (15:58)
--- NOTE | 2020-04-26 19:16 | Electrocardiogram Report ---
Test Reason : Blood Pressure : / mmHG Vent. Rate : 126 BPM Atrial Rate : 156 BPM P-R Int : 000 ms QRS Dur : 136 ms QT Int : 330 ms P-R-T Axes : 000 -13 153 degrees QTc Int : 477 ms Atrial fibrillation with rapid ventricular response with occasional ventricular-paced complexes Left bundle branch block Abnormal ECG When compared with ECG of 22-APR-2020 08:25, Ventricular paced complexes are now present Confirmed by Carlos Gamez ([id number]) on 04/26/2020 7:16:07 PM Referred By: REFERRED SELF Confirmed By:Carlos Gamez
[2020-04-27 04:55] LABS: INR 1.2 (0.9-1.1); Prothrombin Time 12.6 Seconds (9.0-12.0)
[2020-04-27] MEDS: NITROGLYCERIN 2% OINTMENT 30GM TUBE EXT SCH ×2 (05:54→12:11)
[2020-04-27] MEDS: METOPROLOL SUCC 50MG EXT REL TAB PO SCH ×2 (07:51→16:34)
[2020-04-27] MEDS: LOSARTAN POTASSIUM 50 MG TAB PO SCH (07:51)
[2020-04-27] MEDS: ENOXAPARIN INJ 40 MG/0.4 ML SYR SQ SCH (07:51)
[2020-04-27] MEDS ORDERED: cloNIDine HCL 0.1 MG/24 HR TRANSDERM SYS TD SCH (12:45)
--- NOTE | 2020-04-27 13:58 | Cardiology Progress Note ---
Date of Service April 27, 2020 Assessment & Plan (1) Cardiac arrest: Status post [id number] cardiac arrest with uncertain downtime currently completing Arctic protocol with patient now awake and extubated moderately confused but conversant Hepatic enzymes trending downward, no tachyarrhythmias, hemodynamically stable Heart rates still elevated Echocardiogram demonstrates moderate left ventricular dysfunction EF 30-35% with dyssynergy septum Patient underwent by V pacer defibrillator implantation on 04/25/2020 with good tolerance Plan: Increase Toprol XL 200 mg p.o. twice daily for blood pressure and heart rate control, continue losartan We will resume anticoagulation with warfarin Add clonidine TTS 1 weekly If blood pressure still elevated room to increase losartan Recommend discontinuing Araujo increase activities (2) Ventricular fibrillation: (3) Mild anoxic-ischemic encephalopathy: Will need family aid in discussion of upcoming procedures/pacer defibrillator insertion Anticipate rehab needs (4) Left bundle branch block: (5) A-fib: (6) On warfarin therapy: Will resume after pacer defibrillator placed Subjective Patient seen and examined, chart, medications, telemetry reviewed. Patient overall demonstrating improvement. Mentating more appropriately Telemetry reveals persistent atrial fibrillation with it elevated ventricular response rate at times occasional by V pacing Patient remains hypertensive Review of Systems Review of Systems: All systems reviewed & are unremarkable except as noted in HPI & below Physical Exam Constitutional: well developed and well nourished; no acute distress Eyes: PERRL, conjunctivae normal, anicteric sclerae ENMT: external ear and nose normal, oropharynx normal Neck: trachea midline, no thyromegaly Respiratory: normal respiratory effort, lungs clear to auscultation Auscultation: + bronchial breath sounds (Right-sided) Cardiovascular: Rate/Rhythm: + irregularly irregular Heart Sounds: normal S1 and normal S2 Palpation: normal PMI Vessels: no JVD Extremities: normal capillary refill; no edema Chest (Breasts): Chest: + pacemaker (Pacemaker defibrillator site bandaged without hematoma or drainage) Gastrointestinal (Abdomen): normal bowel sounds, soft, nontender, no hepatosplenomegaly Musculoskeletal: no cyanosis or clubbing, extremities motor strength 5/5 Results & Data Vital Signs (Past 12 Hours) Vital Signs Temp Pulse Pulse Resp BP BP Pulse Ox 04/27/20 12:16 121 H 23 156/88 H 04/27/20 12:00 104 H 28 H 04/27/20 10:00 105 H 27 H 04/27/20 08:00 111 H 23 04/27/20 07:43 128 H 29 H 148/98 H 94 04/27/20 07:00 111 H 31 H 04/27/20 04:25 37.7 C H 107 H 20 143/89 H 95 Laboratory Results Laboratory Results - last 24 hr 04/27/20 04:10 PT 12.6 H INR 1.2 H
[2020-04-27] MEDS: CHECK CLONIDINE PATCH PLACEMENT SCH ×2 (16:35→23:41)
[2020-04-27] MEDS: WARFARIN SOD 2.5 MG TAB PO SCH (16:35)
--- NOTE | 2020-04-27 17:06 | Hospitalist Progress Note ---
Date of Service April 27, 2020 Assessment & Plan (1) Cardiac arrest: S/P cardiac arrest unknown etiology out side hospital Successful CPR with return of spontaneous circulation post defibrillation/ S/P emergent cardiac cath showed no significant blockage Was Intubated/sedated on Francisco support/hypothermia protocol S/P extubated respiratory status stable remains in room air , no sob , [place]BURN NON ISCHEMIC CARDIOMYOPATHY ECHO showed ejection fraction of 20 to 25% s/p biventricular ICD implantation ON 04/25/20 Metoprolol increased 200 mg BID ECHO showed moderate LV hypokinesis. EF 30-35 % HX OF PAROXYSMAL AFIB : On beta rafaela Metoprolol 150 mg BID coumadin resumed after AICD placement HTN: bp elevated appreciate input from Cardiology on Losartan /added catapress patch Metoprolol dose increased as above D/c Nitro patch CRYSTAL resolved Mostly due to hypovolemia due to cardiac arrest Creatinine on admission 1.8 Creatinine normalized 0.7 Resolved HTN: cont on beta rafaela /losartan Low grade temp : Low-grade temperature without source, blood cultures negative, COVID 19 negative, normal WBC treated with Cefdinir for rt lung infiltrate completed abx course Metabolic encephalopahty : confusion Mostly due to post cardiac arrest CT head showed no acute intracranial abnormality No focal neuro deficit Clinically improves Type 2 DM : Hba1c 5.6 on 04/20/20 insulin SSI Questionable R Upper Lobe Infiltrate possible related to aspiration Repeat CXR showed increase in pulmonary vasculature suggesting mild congestive failure. on cefdinir Elevated Lactate Mostly related to the cardiac arrest Lactate on admission 5.2 Procalcitonin and WBC WNL Lactate normalized CODE status Full code DVT PROPHYLAXIS : sub q heparin Disposition will need rehab on discharge from hospital referral made to [facility] Admission and Anticipated Discharge Date Admission Date: April 19, 2020 Physical Exam Constitutional: WD/WN, vitals as above no acute distress Eyes: PERRL, conjunctivae normal, anicteric sclerae ENMT: external ear and nose normal, oropharynx normal Respiratory: normal respiratory effort, lungs clear to auscultation Cardiovascular: RRR, no murmur, no edema Neurologic: PERRL, EOMI, accommodation nl, no face palsy, no dysarthria no focal motor deficits Speech / Cognition: normal speech Psychiatric: A+Ox3, euthymic affect Results & Data Results & Data ([facility]) Vital Signs (Past 12 Hours) Vital Signs Temp Pulse Pulse Resp BP BP Pulse Ox 06/12/20 15:58 126 H 04/27/20 15:25 36.9 C 96 H 16 143/78 H 92 04/27/20 14:30 120 H 29 H 04/27/20 14:00 120 H 29 H 04/27/20 13:33 112 H 31 H 04/27/20 13:00 118 H 29 H 04/27/20 12:30 124 H 30 H 04/27/20 12:17 112 H 14 04/27/20 12:16 121 H 23 156/88 H 04/27/20 12:00 104 H 28 H 04/27/20 10:00 105 H 27 H 04/27/20 08:00 111 H 23 04/27/20 07:43 128 H 29 H 148/98 H 94 04/27/20 07:00 111 H 31 H
[2020-04-28 06:48] LABS: INR 1.3 (0.9-1.1); Prothrombin Time 13.1 Seconds (9.0-12.0)
[2020-04-28] MEDS: METOPROLOL SUCC 50MG EXT REL TAB PO SCH ×2 (07:54→16:57)
[2020-04-28] MEDS: LOSARTAN POTASSIUM 50 MG TAB PO SCH (07:56)
[2020-04-28] MEDS: ENOXAPARIN INJ 40 MG/0.4 ML SYR SQ SCH (07:57)
[2020-04-28] MEDS: CHECK CLONIDINE PATCH PLACEMENT SCH ×2 (07:57→16:56)
--- NOTE | 2020-04-28 16:14 | Hospitalist Progress Note ---
Date of Service April 28, 2020 Assessment & Plan (1) Cardiac arrest: S/P cardiac arrest unknown etiology out side hospital Successful CPR with return of spontaneous circulation post defibrillation/ S/P emergent cardiac cath showed no significant blockage Was Intubated/sedated on Francisco support/hypothermia protocol S/P extubated respiratory status stable remains in room air , no sob , WASHBURN NON ISCHEMIC CARDIOMYOPATHY ECHO showed ejection fraction of 20 to 25% s/p biventricular ICD implantation ON 04/25/20 Metoprolol increased 200 mg BID ECHO showed moderate LV hypokinesis. EF 30-35 % HX OF PAROXYSMAL AFIB : on Metoprolol coumadin resumed after AICD placement HTN: BP improved after adjustment of meds appreciate input from Cardiology on Losartan /added catapress patch Metoprolol dose increased as above CRYSTAL resolved Mostly due to hypovolemia due to cardiac arrest Creatinine on admission 1.8 Creatinine normalized 0.7 Resolved HTN: cont on beta rafaela /losartan Low grade temp : afebrile now , COVID 19 negative, normal WBC treated with Cefdinir for rt lung infiltrate completed abx course Metabolic encephalopahty : confusion Mostly due to post cardiac arrest CT head showed no acute intracranial abnormality No focal neuro deficit Clinically improves Type 2 DM : Hba1c 5.6 on 04/20/20 insulin SSI Elevated Lactate Mostly related to the cardiac arrest Lactate on admission 5.2 Procalcitonin and WBC WNL Lactate normalized CODE status Full code DVT PROPHYLAXIS : sub q heparin Disposition stable to be discharged to rehab [facility] today Admission and Anticipated Discharge Date Admission Date: April 19, 2020 Subjective no complain of chest pain or SOB feels fine vitals been stable accepted at [facility] for rehab will be transferred to rehab today Physical Exam Constitutional: WD/WN, vitals as above no acute distress Eyes: PERRL, conjunctivae normal, anicteric sclerae ENMT: external ear and nose normal, oropharynx normal Respiratory: normal respiratory effort, lungs clear to auscultation Cardiovascular: RRR, no murmur, no edema Neurologic: PERRL, EOMI, accommodation nl, no face palsy, no dysarthria no focal motor deficits Speech / Cognition: normal speech Psychiatric: A+Ox3, euthymic affect Results & Data Results & Data ([facility]) Vital Signs (Past 12 Hours) Vital Signs Temp Pulse Resp BP BP Pulse Ox 04/28/20 15:18 36.6 C 97 H 18 139/83 93 04/28/20 12:37 36.5 C 68 18 151/94 H 93 04/28/20 04:23 36.9 C 106 H 18 146/83 H 94
--- NOTE | 2020-04-28 16:36 | Discharge Summary ---
Date of Service April 28, 2020 Admission HPI Per Admitting Provider History obtained from ER provider and records. Unable to obtain history from patient secondary to sedated/intubated state. Medical history significant for Lexa perez on Coumadin, chronic LBBB, valvular heart disease (moderate MR/TR on TTE 2018) hypertension, history of melanoma as per records. As per records, patient noted to be gagging by a few hours ago. Patient subsequently passed out. CPR initiated by son. Upon EMS arrival, V. fib noted on the monitor necessitating shock delivery. Epinephrine, IV amiodarone administered on the field. ROSC after defibrillation. Some limb movement without appreciated as per records. Patient intubated at the field. Therapeutic hypothermia protocol initiated en route to ER. Heart alert called upon arrival at the ER after discussion with mailroom associate. Clean coronaries on diagnostic cardiac catheterization as per mailroom associate. Medical History as above Surgical History : Dental surgery, tonsillectomy Family History : Diabetes, Parkinson's disease Personal/Social history : Non-smoker, daily alcohol intake as per records, lives with Principal Diagnosis CARDIAC ARREST NON ISCHEMIC CARDIOMYOPATHY S/P AICD PLACEMENT PAROXYSMAL AFIB Discharge Exam Constitutional WD/WN, vitals as above no acute distress Eyes PERRL, conjunctivae normal, anicteric sclerae ENMT external ear and nose normal, oropharynx normal Respiratory normal respiratory effort, lungs clear to auscultation Cardiovascular RRR, no murmur, no edema Neurologic PERRL, EOMI, accommodation nl, no face palsy, no dysarthria no focal motor deficits Speech / Cognition: normal speech Psychiatric A+Ox3, euthymic affect Discharge Data Allergies Allergy/AdvReac Type Severity Reaction Status Date / Time No Known Allergies Allergy Verified 04/19/20 22:14 Consultations 04/19/20 22:39 ED Decision to Admit Stat 04/19/20 23:37 Consult Case Management - Discharge Planning Routine Consult Rotary Pump Operator Routine 04/20/20 13:05 Consult Cardiology Routine Procedures Performed Operation Date: 04/19/20 22:30 Actual Procedures p Cath, Left with Cors and Vent - Naldo Fernandes MD s Cineradiography w/Routine Exam - Naldo Fernandes MD Operation Date: 04/25/20 14:00 Actual Procedures p ICD Biventricular Implant - Ashlie M Zazzali, DO Ordered Studies 04/19/20 22:21 CL Cath Imgs for PACS use only Stat 04/19/20 23:42 CT head/brain wo con Urgent 04/25/20 13:07 US venous doppler LE BI Routine 04/25/20 14:30 EP Lab Images for PACS ONCE Hospital Course (1) Cardiac arrest: S/P cardiac arrest unknown etiology out side hospital Successful CPR with return of spontaneous circulation post defibrillation/ S/P emergent cardiac cath showed no significant blockage Was Intubated/sedated on Francisco support/hypothermia protocol S/P extubated respiratory status stable remains in room air , no sob , WASHBURN NON ISCHEMIC CARDIOMYOPATHY ECHO showed ejection fraction of 20 to 25% s/p biventricular ICD implantation ON 04/25/20 Metoprolol increased 200 mg BID ECHO showed moderate LV hypokinesis. EF 30-35 % HX OF PAROXYSMAL AFIB : on Metoprolol coumadin resumed after AICD placement HTN: BP improved after adjustment of meds appreciate input from Cardiology on Losartan /added catapress patch Metoprolol dose increased as above CRYSTAL resolved Mostly due to hypovolemia due to cardiac arrest Creatinine on admission 1.8 Creatinine normalized 0.7 Resolved HTN: cont on beta rafaela /losartan Low grade temp : afebrile now , COVID 19 negative, normal WBC treated with Cefdinir for rt lung infiltrate completed abx course Metabolic encephalopahty : confusion Mostly due to post cardiac arrest CT head showed no acute intracranial abnormality No focal neuro deficit Clinically improves Type 2 DM : Hba1c 5.6 on 04/20/20 insulin SSI Elevated Lactate Mostly related to the cardiac arrest Lactate on admission 5.2 Procalcitonin and WBC WNL Lactate normalized CODE status Full code DVT PROPHYLAXIS : sub q heparin Disposition stable to be discharged to rehab [facility] today Total Time Total Time Spent Total Time Spent (In Minutes): 35 mins Total Time Includes: Discharge Planning and Medication Reconciliation Discharge Plan Discharge Items Patient Disposition: Transfer Inpatient Rehab Fac Reason For Visit: CARDIAC ARREST Discharge Diagnosis: CARDIAC ARREST NON ISCHEMIC CARDIOMYOPATHY S/P AICD PLACEMENT PAROXYSMAL AFIB Activity: As commented below Activity Comment: do not lift the left elbow over the left shoulder for 1 month Lifting: No more than 10 pounds Lifting Comment: do not lift more than 10 pounds with the left arm for 2 weeks Bathing: Keep incision dry Bathing Comment: keep dressing on and dry until wound check next week Non-emergency contact: Primary Care Provider Call non-emergency contact if: you have any medication questions Follow-up/Referrals: PCP,NO [Physician] - Diet: Heart Healthy Addtl Attending Provider Instructions: Device and wound check next week at [facility] Thursday05/01/2020 at 9:15pm Call your Primary Care doctor if any of the following symptoms or problems start or get worse: * Shortness of breath or difficulty breathing * Wake up at night short of breath * Chest pain * Cough * Swelling of your hands, feet, or legs * More fatigued or tired with your normal activity * Palpitations - sudden fast heart beats WEIGHT * Weigh yourself every morning after using the bathroom. * Use the same scale. * Wear the same amount of clothing. * Write your weight down on a chart. * Call your Primary Care doctor if you gain more than 2-3 pounds in 1-2 days. MEDICATIONS * Use this discharge instruction sheet for medication instructions. * Take your medications at the time your doctor ordered. * Do not skip a dose of your medicines. * If you miss a dose of medicine, take it as soon as possible, but DO NOT DOUBLE A DOSE. * Read your medicine information when you get home. * Know all of the side effects of your medicine. If in doubt, ask your pharmacist * Call your Primary Care doctor's office if you have any side effects. * Be sure all of your doctors know what medicine and herbs you take (including cold, flu, and herbal medicine). Take the following with you to your follow-up doctor appointments: * Weight Chart * Medication List * List of questions Do not drink excessive alcohol, beer or wine. Pending Studies at Discharge: No Stand-Alone Forms: My [facility] [employer] Skilled Items Patient informed of condition?: No DNR: No Discharge Level of Care: Acute rehab Communicable Disease: No Discharge Prognosis: Improving Lines: None Urinary Catheter: No Medications and DC Order Prescriptions: New metoprolol succinate 50 mg Tablet Extended Release 24 Hr 200 mg PO [id number] Qty: 0 RF: 0 clonidine 0.1 mg/24 hr Patch Weekly 1 patch transdermal Q7D@1245 Qty: 0 RF: 0 Continued multivitamin Tablet 1 tab PO DAILY RF: 0 losartan 50 mg Tablet 50 mg PO DAILY RF: 0 warfarin 5 mg Tablet 2.5 mg PO DAILY RF: 0 fenofibrate nanocrystallized 145 mg Tablet 145 mg PO DAILY RF: 0 Discontinued digoxin [Digitek] 250 mcg (0.25 mg) Tablet 250 mcg PO DAILY RF: 0 metoprolol succinate 25 mg Tablet Extended Release 24 Hr 25 mg PO DAILY RF: 0 sildenafil (pulm.hypertension) [Revatio] 20 mg Tablet 100 mg PO DAILY PRN (Reason: Erectile Dysfunction) RF: 0 Discharge Orders: Discharge Order (Routine); Ordered 04/28/20 Ordered By: Laurie Mcrae Admission Data Admit Date/Time: 04/19/20 23:37 Attending Provider: Laurie Mcrae Admit Provider: Salvador Rivera Primary Care Provider: Patricia Ragsdale Other Providers: Naldo Fernandes ; Salvador Rivera ; Wellington Desir ; Sean Horton ; Thuy Bautista [facility] ; [facility]
[2020-04-28] MEDS: WARFARIN SOD 2.5 MG TAB PO SCH (16:57)
--- NOTE | 2020-05-02 03:44 | Operative Report (OR) ---
DATE OF OPERATION: 04/25/2020 PREOPERATIVE DIAGNOSES: Permanent atrial fibrillation, cardiac arrest, left bundle branch block, nonischemic cardiomyopathy, ejection fraction 35%. POSTOPERATIVE DIAGNOSES: Permanent atrial fibrillation, cardiac arrest, left bundle branch block, nonischemic cardiomyopathy, ejection fraction 35%. PROCEDURE: Biventricular rate responsive implantable cardiac defibrillator (left ventricular lead is over the His bundle region) with an intracardiac electrogram mapping of the His bundle all under fluoroscopic guidance, coronary sinus venogram. SURGEON: Ashlie Irene DO. ASSISTANTS: None. ANESTHESIA: Monitored conscious sedation administered under my supervision by Abigail Ramires. Start time 3:09, end time 5:30, a total of 7 mg of Versed, 225 mcg of fentanyl. INTRAVENOUS FLUIDS: 70 mL CONTRAST: 60 mL. ANTIBIOTICS: Two grams of Ancef. BLOOD LOSS: 25 mL. COMPLICATIONS: None. CONDITION: Stable. URINE OUTPUT: Not applicable. SPECIMENS: None. FINDINGS: See below. DRAINS: None. INDICATIONS: This 65-year-old gentleman with past medical history for hypertension, left bundle branch block, permanent atrial fibrillation on Coumadin and digoxin as well as Toprol, CHADS2-VASc score of 2 for hypertension and age. He was admitted to [facility] on 04/19/2020 after suffering a witnessed cardiac arrest. He underwent cardiac catheterization which was unremarkable and cooling hypothermia protocol. He has awoken and neurological status has no significant impairment and he was recommended a defibrillator prior to being discharged from the hospital. Given his left bundle branch block, his nonischemic cardiomyopathy, he was recommended a biventricular device. CONSENT: Consent was obtained prior to the patient going into the electrophysiology lab. Since the patient still had a little memory lapse from his cardiac arrest, I opted to get consent from his , Sneha, phone number [phone]. I explained the potential risks that could happen in the procedure, but are not limited to sudden cardiac , cardiac rhythm, cerebrovascular accident, myocardial infarction, injury to the blood vessels, chamber of the heart, lung, bleeding, and infection. Sneha expressed an understanding and informed consent was obtained. DESCRIPTION OF THE PROCEDURE: The patient was brought into the electrophysiology lab in a fasting state. He was connected to continuous gambling monitor. Timeout was performed to ensure patient identity and procedure correctly. The patient was prepped and draped over the left infraclavicular space in normal surgical standard fashion. Monitored conscious sedation was given throughout the procedure for patient's comfort level. [place] precautions maintained throughout the procedure. He received prophylactic antibiotics prior to incision. A 20 mL of 1% lidocaine, bupivacaine mixture were given in the left deltopectoral groove. Incision was made in left deltopectoral groove. Blunt dissection was performed down to identify cephalic vein. Cephalic vein was isolated using 0 silk ties. It was nicked with an 11 blade and a guidewire was inserted without any resistance. An 8-Belizean sheath was inserted over the guidewire without any resistance. Dilator was removed and a second guidewire was inserted through the 8-Belizean sheath to allow for retained venous access. Sheath was removed and a 9.5-Belizean sheath was inserted over the guidewires without any resistance. The guidewire and dilator removed. The right ventricular defibrillator lead was advanced into right ventricle and positioned in intraventricular apex under fluoroscopic guidance. There was adequate pacing and sensing thresholds and no diaphragmatic stimulation with the pacing. The 9.5-Belizean sheath was peeled away and lead was fixated to pectoralis muscle using 0 silk suture. A 9.5-Belizean sheath was inserted over the retained guidewire without any resistance. The guidewire and dilator were removed. Then an MPX coronary sinus outer sheath was advanced into right atrium under fluoroscopic guidance over a Glidewire. The Glidewire and dilator were removed. Then, the coronary sinus was cannulated using a Biosense Decapolar coronary sinus diagnostic catheter. The MPX was advanced over that into the coronary sinus and the balloon was then advanced through the MPX sheath and a venogram of the coronary sinus was performed. Due to the size of the coronary sinus, I actually had to inflate the balloon. A few pictures of the coronary sinus venogram were performed which identified 2 very small potential posterolateral branches, I did try to wire through one of them with a Whisper wire, which I successfully did, but then I was not able to track the lead over through it even using an inner 90, so I opted to then perform a His bundle lead for the CS. The MPX sheath was removed and a deflectable His P304 sheath was advanced into the right atrium. Then the His lead was advanced through that and unipolar electric intracardiac mapping was performed to identify the His bundle region. The HV was measured to be 48 milliseconds. The patient was in AFib, so there was no AH to measure. The lead was then screwed in and there was adequate pacing and sensing thresholds and no diaphragmatic stimulation with high output pacing. The deflectable sheath was then split under fluoroscopic guidance. Then the 9.5-Belizean sheath was peeled away and the lead was fixated to pectoralis muscle using 0 silk suture. A pursestring was placed around the suture site, both of them to stop some backbleeding with a 2-[address] needle was placed. Then a defibrillator pocket was created using blunt dissection over the pectoralis muscle within the pectoralis fascia. The pocket was flushed with copious amounts of bacitracin, saline wash and inspected for hemostasis. The defibrillator was then attached to the leads making sure that the pins were in appropriate position, passed set screw and set screws were all tightened. The defibrillator was then placed in antibiotic pouch followed then by being placed in the pocket, making sure that the leads were lying flat beneath the device. The incision was then closed in 3-layer fashion with 2-0 Vicryl interrupted suture followed by 3-0 Vicryl interrupted suture followed by a 4-0 Monocryl running stitch and Dermabond was applied. EQUIPMENT: 1. The generator is a [employer] MACHINE MAINTENANCE TECHNICIAN-D SureScan [id number], serial number [id number]. 2. The antibiotic pouch reference [id number], lot number [id number], expiration 03/03/2021. 3. The plug for the right atrial lead port is lot number [id number], expiration 12/09/2023. 4. The right ventricular defibrillator lead is a Medtronic 6935M-62 cm, serial number [id number]. 5. The His bundle lead is a Medtronic 3830-69 cm, serial number [id number]. INTRAOPERATIVE TESTIN. Right ventricular lead R waves 5.9 millivolts, impedance 529 ohms, threshold 0.3 volts at 0.4 milliseconds. 2. The His bundle R waves were 1.7 millivolts 612 ohms and 2 volts at 1 millisecond. 3. The intracardiac electrograms HV was 48 milliseconds. His [place] QRS was 130 milliseconds and the paced QRS was 103 milliseconds. FINAL MEASUREMENTS THROUGH THE DEVICE: 1. Right ventricular lead: R-wave 3.6 millivolts, impedance 361 ohms, threshold 0.5 volts at 0.4 milliseconds. 2. RV coil was 61 ohms. 3. The His bundle impedance was 532 ohms and threshold was 2 volts at 1 millisecond. FINAL PARAMETERS: VVIR 60/130. Right ventricular amplitude 3.5 volts, pulse width 0.4 milliseconds, sensitivity 0.3 millivolts. Left ventricular amplitude 4 volts, pulse width 1 millisecond. A VT monitor zone 150 beats per minute for 32 detection intervals, a VT zone at 162 beats per minute for 16 detection intervals and VF zone at 200 beats per minute, 30/40 detection intervals. IMPRESSION: Successful implantation of a rate responsive biventricular implantable cardiac defibrillator with left ventricular lead is over the His bundle, along with a coronary sinus venogram and intracardiac His electrogram mapping all secondary to cardiac arrest, left bundle branch block and nonischemic cardiomyopathy and permanent atrial fibrillation. PLAN: Monitor patient overnight, 12-lead ECG, chest x-ray. He is not allowed to lift the left elbow or left shoulder for 1 month. He cannot lift more than 10 pounds with the left arm for 2 weeks. He is to leave the dressing on and dry until his wound check at [facility] in 1 week. I attest to the content of the Intraoperative Record and any orders documented therein. Any exceptions are noted below. CAPO
== END 2020-04-28 17:30 | DRG 224 ==
LOC: ED 22:05 → CC 22:45 → 1E 23:37 → SUATTDRO 23:37 → 2S 04-27 14:56
PROC: EPB.ICD (2020-04-25 14:00)